=== PATIENT | male | born 1970 | race African-American/Black ===

== ENCOUNTER 2018-03-20 19:10 | Emergency (ER) | payer SELFPAY ==
[~2018-03-20] VITALS: Ht 182.9 cm; Wt 107.0 kg
[2018-03-20] MEDS ORDERED: IV NORMAL SALINE 1000ML BAG 1,000 ML IV ONE (19:30)
[2018-03-20 19:37] LABS: BASO % 1 % (0-3); EOS # 0.1 x10^3/uL (0.0-0.7); EOS % 2 % (0-3); HEMATOCRIT 39.9 % (39.0-53.0); HEMOGLOBIN 13.9 g/dL (13.0-17.5); LYMPH # 1.8 x10^3/uL (1.0-4.8); LYMPH % 40 % (24-48); MEAN CORPUSCULAR HEMOGLOBIN 29 pg (25-35); MEAN CORPUSCULAR HGB CONC 35 g/dL (31-37); MEAN CORPUSCULAR VOLUME 84 fL (79-100); MONO # 0.4 x10^3/uL (0.0-1.1); MONO % 8 % (0-9); NEUT # 2.3 x10^3uL (1.8-7.7); NEUT % 50 % (31-73); PLATELET COUNT 145 x10^3/uL (140-400); RED BLOOD COUNT 4.76 x10^6/uL (4.30-5.70); WHITE BLOOD COUNT 4.6 x10^3/uL (4.0-11.0)
[2018-03-20 19:47] LABS: CALCIUM 9.1 mg/dL (8.5-10.1); GFR 79.8; POTASSIUM 3.7 mmol/L (3.5-5.1)
[2018-03-20 19:53] LABS: ALBUMIN 3.7 g/dL (3.4-5.0); ALBUMIN/GLOBULIN RATIO 0.9 (1.0-1.7); TOTAL BILIRUBIN 0.3 mg/dL (0.2-1.0); TOTAL PROTEIN 7.6 g/dL (6.4-8.2)
[2018-03-20] MEDS ORDERED: IOHEXOL 300 MG/ML 100ML VIAL. IV ONE (20:00)
[2018-03-20] MEDS ORDERED: CONTRAST GIVEN. MC PRN (20:00)
--- NOTE | 2018-03-20 20:57 | RAD ---
CTA OF THE CHEST WITH AND WITHOUT CONTRAST Clinical indications: Shortness of air. No clot in leg. Technique: Noncontrast axial localizer was performed. After IV infusion of 75 cc of Omnipaque 300, helical CT scanning of the chest was performed using the CT pulmonary embolism protocol. A coronal MIP reconstruction was generated. PQRS compliance Statement One or more of the following individualized dose reduction techniques were utilized for this study: 1. Automated exposure control 2. Adjustment of the mA and/or kV according to patient size 3. Use of iterative reconstruction technique Comparison: No previous chest CT available. FINDINGS: No pulmonary embolism is evident. Calcified left hilar lymph nodes are seen. Calcified granuloma of the left lower lobe is seen. No focal aneurysmal dilatation or dissection of thoracic aorta is seen. The heart size is normal and no pericardial effusion is evident. No pleural effusion or pneumothorax is seen. No lung consolidation or lung mass is evident. Small focus of atelectasis or scarring within the posterior right lower lobe is seen. There is a small focus of scarring or atelectasis within the posterior costophrenic angle on the left side. The proximal bronchial tree is patent. No adrenal mass is evident. IVC filter is in place. No osteolytic process is seen. IMPRESSION: No pulmonary embolism. IVC filter in place. No lung consolidation or pleural effusion is seen. Electronically signed by: Daryl Daly MD (03/20/2018 8:53 PM) [facility] [id number]
--- NOTE | 2018-03-20 21:14 | PHYS DOC ---
Past Medical History Past Medical History: DVT, Hypertension Past Surgical History: No Surgical History Alcohol Use: Heavy Drug Use: None Adult General Chief Complaint Chief Complaint: DIZZY/LIGHT HEADED HPI HPI Patient is a 48 year old male who presents with cold symptoms and reported shortness of breath. The patient states that he was seen at recently and told that he had a DVT in his left leg. He is worried that he might have a blood clot in his lungs. He states that he has been having some congestion and upper respiratory symptoms. He states that he felt like he was having some shortness of air and stopped his truck. He is a overhauler bus truck. He reported to the emergency department to be examined. He denies chest pain or diaphoresis. Review of Systems Review of Systems Constitutional: Denies fever or chills [] Eyes: Denies change in visual acuity, redness, or eye pain [] HENT: Denies nasal congestion or sore throat [] Respiratory: See history of present illness Cardiovascular: No additional information not addressed in HPI [] GI: Denies abdominal pain, nausea, vomiting, bloody stools or diarrhea [] : Denies dysuria or hematuria [] Musculoskeletal: Denies back pain or joint pain [] Integument: Denies rash or skin lesions [] Neurologic: Denies headache, focal weakness or sensory changes [] Endocrine: Denies polyuria or polydipsia [] All other systems were reviewed and found to be within normal limits, except as documented in this note. Current Medications Current Medications Current Medications Medications (Trade) Dose Ordered Sig/Cameron Start Time Stop Time Status Last Admin Dose Admin Info (CONTRAST GIVEN -- Rx MONITORING) 1 each PRN DAILY PRN 03/20/18 20:00 03/20/18 22:02 DC Iohexol (Omnipaque 300 Mg/ml) 100 ml STK-MED ONCE 03/21/18 03:46 03/21/18 03:47 DC Sodium Chloride 1,000 ml @ 1,000 mls/hr 1X ONCE 03/20/18 19:30 03/20/18 20:29 DC 03/20/18 19:55 1,000 MLS/HR Allergies Allergies Allergies Coded Allergies Type Severity Reaction Last Updated Verified No Known Drug Allergies 03/20/18 No Physical Exam Physical Exam Constitutional: Well developed, well nourished, no acute distress, non-toxic appearance. [] HENT: Normocephalic, atraumatic, bilateral and panic membranes normal, oropharynx moist, no oral exudates, nares are erythematous bilaterally Eyes: PERRLA, EOMI, conjunctiva normal, no discharge. [] Neck: Normal range of motion, no tenderness, supple, no stridor. [] Cardiovascular:Heart rate regular rhythm, no murmur [] Lungs & Thorax: Bilateral breath sounds clear to auscultation [] Extremities: No tenderness, no cyanosis, no clubbing, ROM intact, no edema. [] Neurologic: Alert and oriented X 3, normal motor function, normal sensory function, no focal deficits noted. [] Psychologic: Affect normal, judgement normal, mood normal. [] Current Patient Data Vital Signs Vital Signs Date Time Temp Pulse Resp B/P (MAP) Pulse Ox O2 Delivery O2 Flow Rate FiO2 03/20/18 21:45 78 18 99 03/20/18 19:10 98.9 157/78 (104) Room Air 98.9 Lab Values Laboratory Tests Test 03/20/18 19:28 White Blood Count 4.6 x10^3/uL (4.0-11.0) Red Blood Count 4.76 x10^6/uL (4.30-5.70) Hemoglobin 13.9 g/dL (13.0-17.5) Hematocrit 39.9 % (39.0-53.0) Mean Corpuscular Volume 84 fL (79-100) Mean Corpuscular Hemoglobin 29 pg (25-35) Mean Corpuscular Hemoglobin Concent 35 g/dL (31-37) Red Cell Distribution Width 14.0 % (11.5-14.5) Platelet Count 145 x10^3/uL (140-400) Neutrophils (%) (Auto) 50 % (31-73) Lymphocytes (%) (Auto) 40 % (24-48) Monocytes (%) (Auto) 8 % (0-9) Eosinophils (%) (Auto) 2 % (0-3) Basophils (%) (Auto) 1 % (0-3) Neutrophils # (Auto) 2.3 x10^3uL (1.8-7.7) Lymphocytes # (Auto) 1.8 x10^3/uL (1.0-4.8) Monocytes # (Auto) 0.4 x10^3/uL (0.0-1.1) Eosinophils # (Auto) 0.1 x10^3/uL (0.0-0.7) Basophils # (Auto) 0.0 x10^3/uL (0.0-0.2) Sodium Level 140 mmol/L (136-145) Potassium Level 3.7 mmol/L (3.5-5.1) Chloride Level 103 mmol/L (98-107) Carbon Dioxide Level 26 mmol/L (21-32) Anion Gap 11 (6-14) Blood Urea Nitrogen 18 mg/dL (8-26) Creatinine 1.0 mg/dL (0.7-1.3) Estimated GFR (Cockcroft-Gault) 79.8 BUN/Creatinine Ratio 18 (6-20) Glucose Level 108 mg/dL (70-99) H Calcium Level 9.1 mg/dL (8.5-10.1) Total Bilirubin 0.3 mg/dL (0.2-1.0) Aspartate Amino Transferase (AST) 25 U/L (15-37) Alanine Aminotransferase (ALT) 59 U/L (16-63) Alkaline Phosphatase 69 U/L (46-116) Troponin I Quantitative < 0.017 ng/mL (0.000-0.055) Total Protein 7.6 g/dL (6.4-8.2) Albumin 3.7 g/dL (3.4-5.0) Albumin/Globulin Ratio 0.9 (1.0-1.7) L Laboratory Tests 03/20/18 19:28 Laboratory Tests 03/20/18 19:28 EKG EKG [] Radiology/Procedures Radiology/Procedures []PATIENT: JARED YEECOUNT: [id number]#: [id number] : 1970 LOCATION: ER AGE: 48 SEX: M EXAM STATUS: REG ER ORD. PHYSICIAN: DANIA JONES APRN REASON: SOA, known blood clot in left lower extremity PROCEDURE: CT ANGIOGRAPHY CHEST CTA OF THE CHEST WITH AND WITHOUT CONTRAST Clinical indications: Shortness of air. No clot in leg. Technique: Noncontrast axial localizer was performed. After IV infusion of 75 cc of Omnipaque 300, helical CT scanning of the chest was performed using the CT pulmonary embolism protocol. A coronal MIP reconstruction was generated. PQRS compliance Statement One or more of the following individualized dose reduction techniques were utilized for this study: 1. Automated exposure control 2. Adjustment of the mA and/or kV according to patient size 3. Use of iterative reconstruction technique Comparison: No previous chest CT available. FINDINGS: No pulmonary embolism is evident. Calcified left hilar lymph nodes are seen. Calcified granuloma of the left lower lobe is seen. No focal aneurysmal dilatation or dissection of thoracic aorta is seen. The heart size is normal and no pericardial effusion is evident. No pleural effusion or pneumothorax is seen. No lung consolidation or lung mass is evident. Small focus of atelectasis or scarring within the posterior right lower lobe is seen. There is a small focus of scarring or atelectasis within the posterior costophrenic angle on the left side. The proximal bronchial tree is patent. No adrenal mass is evident. IVC filter is in place. No osteolytic process is seen. IMPRESSION: No pulmonary embolism. IVC filter in place. No lung consolidation or pleural effusion is seen. Electronically signed by: Juventino Daly MD (03/20/2018 8:53 PM) [facility] DICTATED and SIGNED BY: JUVENTINO DALY MD DATE: 03/20/182035 Course & Med Decision Making Course & Med Decision Making Pertinent Labs and Imaging studies reviewed. (See chart for details) []The patient is to continue to take his warfarin for his blood clot. He is to follow-up with his physician at for continued treatment of his DVT. He may use [id number] cough and cold medication for his upper respiratory symptoms. Staff Physician Addendum: I was working in the ER during the course of this patient's visit. I was available for consultation as needed, but I was not directly involved in the care of this patient. Dragon Disclaimer Dragon Disclaimer This electronic medical record was generated, in whole or in part, using a voice recognition dictation system. Departure Departure Impression: Primary Impression: Upper respiratory infection Disposition: 01 HOME, SELF-CARE Condition: STABLE Referrals: NO PCP (PCP) Patient Instructions: Upper Respiratory Infection, Adult Additional Instructions: Use [id number] cough and cold medication. You were negative for a pulmonary embolism. Continue your follow-up care with for treatment of your DVT. If worsening return to the emergency department. DANIA JONES APRN Mar 20, 2018 21:14 ROSANNE GONZALEZ MD Mar 26, 2018 06:26
[2018-03-20 21:45] VITALS: BP 155/97
[2018-03-21] MEDS ORDERED: IOHEXOL 300 MG/ML 100ML VIAL. ONE (03:46)
== END 2018-03-20 22:00 | disposition home or self-care (01) ==
LOC: ER 19:10
DX: J06.9 Acute upper respiratory infection, unspecified (principal); I10 Essential (primary) hypertension; F10.20 Alcohol dependence, uncomplicated; Y90.9 Presence of alcohol in blood, level not specified; Z86.718 Personal history of other venous thrombosis and embolism
CPT/HCPCS: 36415; 71275; 80053; 84484; 85025; 99285; J7030; Q9967; 96360

== ENCOUNTER 2018-07-08 17:48 | Emergency (ER) | payer OTHER ==
[~2018-07-08] VITALS: Ht 182.9 cm; Wt 108.0 kg
[2018-07-08 19:06] LABS: BILIRUBIN,URINE NEGATIVE (NEG); CLARITY,URINE CLEAR; COLOR,URINE YELLOW; NITRITE,URINE NEGATIVE (NEG); PH,URINE 5.5; PROTEIN,URINE NEGATIVE (NEG-TRACE); UROBILINOGEN,URINE 0.2 mg/dL (0.2 mg/dL)
[2018-07-08 19:09] LABS: BASO % 1 % (0-3); EOS # 0.1 x10^3/uL (0.0-0.7); EOS % 1 % (0-3); HEMATOCRIT 39.4 % (39.0-53.0); HEMOGLOBIN 13.1 g/dL (13.0-17.5); LYMPH # 1.6 x10^3/uL (1.0-4.8); LYMPH % 29 % (24-48); MEAN CORPUSCULAR HEMOGLOBIN 28 pg (25-35); MEAN CORPUSCULAR HGB CONC 33 g/dL (31-37); MEAN CORPUSCULAR VOLUME 85 fL (79-100); MONO # 0.5 x10^3/uL (0.0-1.1); MONO % 9 % (0-9); NEUT # 3.3 x10^3uL (1.8-7.7); NEUT % 59 % (31-73); PLATELET COUNT 148 x10^3/uL (140-400); RED BLOOD COUNT 4.66 x10^6/uL (4.30-5.70); RED CELL DISTRIBUTION WIDTH 13.9 % (11.5-14.5); WHITE BLOOD COUNT 5.5 x10^3/uL (4.0-11.0)
[2018-07-08 19:11] LABS: BACTERIA,URINE 0 /HPF (0-FEW); WBC,URINE OCC /HPF (0-4)
[2018-07-08 19:12] LABS: SQUAMOUS EPITHELIAL CELL,UR OCC /LPF
[2018-07-08 19:17] LABS: PROTHROMBIN TIME PATIENT 14.8 SEC (11.7-14.0)
--- NOTE | 2018-07-08 20:28 | RAD ---
Left lower extremity venous doppler ultrasound History: Swelling and pain of the left buttock Comparison: None Findings: Multiple grayscale, color, and duplex spectral analysis sonographic images were acquired of the left lower extremity veins to evaluate for the presence of DVT. There is diffuse abnormal echogenicity extending from the proximal superficial femoral vein to the level of the popliteal vein, calf veins also not visualized. There is some color flow present. There is color flow of the left common femoral vein and greater saphenous vein. There are some nonspecific left groin lymph nodes which reportedly correspond with site of patient's pain, largest of these about 2.9 x 1.1 x 2.2 cm. Impression: 1. There is long segment nonocclusive deep venous thrombosis throughout the superficial femoral vein to the popliteal vein. Calf veins are also not well visualized. 2. There are nonspecific left groin lymph nodes, reportedly corresponding with site of pain. Nonvascular left extremity ultrasound FINDINGS: Multiple sonographic images directed toward the left buttock region are submitted. At site of concern, there is a hypoechoic, somewhat lobulated collection in greatest dimension about 3.3 x 3.2 x 1.4 cm in size, indicated as being at the inferior medial aspect of the left buttock. This is not associated with significant hypervascularity. IMPRESSION: 1. There is a nonspecific fluid collection of the inferior medial left buttock at site of concern of uncertain sterility, abscess in the differential considerations. FOR INTERNAL CODING PURPOSES Critical result: Findings discussed with RORO GEORGE at 07/08/2018 8:25 PM. RESULT CODE: (C) Electronically signed by: Naresh Burroughs MD (07/08/2018 8:26 PM) [facility]
[2018-07-08] MEDS ORDERED: LIDOCAINE 2%/EPI 1:100,000 20 ML VIAL. IJ ONE (20:45)
[2018-07-08] MEDS ORDERED: CLINDAMYCIN HCL 150 MG CAPSULE. PO ONE (20:45)
[2018-07-08 21:23] VITALS: BP 143/68
[2018-07-08] MEDS ORDERED: CLIN300C8 PO (23:06)
[2018-07-08] MEDS ORDERED: HYDR-2761 PO (23:10)
--- NOTE | 2018-07-08 23:10 | PHYS DOC ---
Past Medical History Past Medical History: DVT, Hypertension, Other Additional Past Medical Histor: CHRONIC BACK PAIN,UMBILICAL HERNIA Past Surgical History: Other Additional Past Surgical Histo: L KNEE Additional Information: 3 CIGARETTES A DAY Alcohol Use: Heavy Additional Information: 9 BEERS A DAY Drug Use: None Adult General Chief Complaint Chief Complaint: TESTICULAR PAIN OR INJURY HPI HPI 48 y/o male presents with report of left groin pain and tender/swollen area x 4 days. Reports focal tender focal area to left buttocks which was previously diagnosed as an abscess. Reports took antibiotics which improved area but now worse again. Denies fever. Denies trauma. Patient also reports some chronic edema to LLE and history of known DVT for which patent has been taking xarelto. Reports compliance with his blood thinner. Denies chest pain or SOA. Denies pleuritic pain. Denies penile discharge or rash. Denies dysuria, urinary frequency, or urinary urgency. Denies testicular involvement. Review of Systems Review of Systems Constitutional: Denies fever or chills [] Eyes: Denies change in visual acuity, redness, or eye pain [] HENT: Denies nasal congestion or sore throat [] Respiratory: Denies cough or shortness of breath [] Cardiovascular: Denies chest pain or pleuritic pain GI: Denies abdominal pain, nausea, vomiting, or diarrhea [] : Denies dysuria or hematuria [] Musculoskeletal: Denies back pain; reports chronic leg pain and swelling on left Integument: Reports healing ulceration to distal aspect of LLE, reports tender swollen area to left buttocks, reports swollen are to left femoral area Neurologic: Denies headache, focal weakness or sensory changes [] Complete systems were reviewed and found to be within normal limits, except as documented in this note. Current Medications Current Medications Current Medications Medications (Trade) Dose Ordered Sig/Cameron Start Time Stop Time Status Last Admin Dose Admin Clindamycin HCl (Cleocin) 300 mg 1X ONCE 07/08/18 20:45 07/08/18 20:46 DC 07/08/18 20:53 300 MG Lidocaine/ Epinephrine (LIDOCAINE 2%-EPI 1:100,000 multi-dose) 20 ml 1X ONCE 07/08/18 20:45 07/08/18 20:46 DC 07/08/18 20:53 20 ML Neomycin/ Polymyxin/ Bacitracin (Triple Antibiotic Ointment) 1 pkt 1X ONCE 07/08/18 23:15 07/08/18 23:16 DC Allergies Allergies Allergies Coded Allergies Type Severity Reaction Last Updated Verified No Known Drug Allergies 03/20/18 No Physical Exam Physical Exam Constitutional: Well developed, well nourished, no acute distress, non-toxic appearance. [] HENT: Normocephalic, atraumatic Eyes: PERRL, EOMI, conjunctiva normal, no discharge. [] Neck: Normal range of motion, no tenderness, supple Cardiovascular: Heart rate regular rhythm, no murmur [] Lungs & Thorax: Bilateral breath sounds clear to auscultation [] Abdomen: Bowel sounds normal, soft, no tenderness, no masses, no pulsatile masses. [] Skin: Warm, dry, healing ulceration to medial distal LLE, focal tender area to left distal buttocks with induration, focal tender area to left femoral region possible lymphadenopathy Back: No tenderness, no CVA tenderness. [] Extremities: LLE 1+ edema, distal medial aspect with healing decubitus ulceration, some calf tenderness on palpation primarily near ulceration Neurologic: Alert and oriented X 3, normal motor function, normal sensory function, no focal deficits noted. [] Psychologic: Affect normal, judgement normal, mood normal. [] Current Patient Data Vital Signs Vital Signs Date Time Temp Pulse Resp B/P (MAP) Pulse Ox O2 Delivery O2 Flow Rate FiO2 07/08/18 21:23 77 143/68 (93) Room Air 07/08/18 18:18 98.2 20 98 98.2 Lab Values Laboratory Tests Test 07/08/18 18:45 07/08/18 18:53 Urine Collection Type Unknown Urine Color Yellow Urine Clarity Clear Urine pH 5.5 Urine Specific Bernice 1.020 Urine Protein Negative mg/dL (NEG-TRACE) Urine Glucose (UA) Negative mg/dL (NEG) Urine Ketones (Stick) Negative mg/dL (NEG) Urine Blood Large (NEG) Urine Nitrite Negative (NEG) Urine Bilirubin Negative (NEG) Urine Urobilinogen Dipstick 0.2 mg/dL (0.2 mg/dL) Urine Leukocyte Esterase Negative (NEG) Urine RBC 3-5 /HPF (0-2) Urine WBC Occ /HPF (0-4) Urine Squamous Epithelial Cells Occ /LPF Urine Bacteria 0 /HPF (0-FEW) Urine Mucus Slight /LPF White Blood Count 5.5 x10^3/uL (4.0-11.0) Red Blood Count 4.66 x10^6/uL (4.30-5.70) Hemoglobin 13.1 g/dL (13.0-17.5) Hematocrit 39.4 % (39.0-53.0) Mean Corpuscular Volume 85 fL (79-100) Mean Corpuscular Hemoglobin 28 pg (25-35) Mean Corpuscular Hemoglobin Concent 33 g/dL (31-37) Red Cell Distribution Width 13.9 % (11.5-14.5) Platelet Count 148 x10^3/uL (140-400) Neutrophils (%) (Auto) 59 % (31-73) Lymphocytes (%) (Auto) 29 % (24-48) Monocytes (%) (Auto) 9 % (0-9) Eosinophils (%) (Auto) 1 % (0-3) Basophils (%) (Auto) 1 % (0-3) Neutrophils # (Auto) 3.3 x10^3uL (1.8-7.7) Lymphocytes # (Auto) 1.6 x10^3/uL (1.0-4.8) Monocytes # (Auto) 0.5 x10^3/uL (0.0-1.1) Eosinophils # (Auto) 0.1 x10^3/uL (0.0-0.7) Basophils # (Auto) 0.0 x10^3/uL (0.0-0.2) Prothrombin Time 14.8 SEC (11.7-14.0) H Prothrombin Time INR 1.2 (0.8-1.1) H PTT 31 SEC (24-38) Laboratory Tests 07/08/18 18:53 EKG EKG [] Radiology/Procedures Radiology/Procedures PROCEDURE: VENOUS LOWER EXTREMITY LEFT Left lower extremity venous doppler ultrasound History: Swelling and pain of the left buttock Comparison: None Findings: Multiple grayscale, color, and duplex spectral analysis sonographic images were acquired of the left lower extremity veins to evaluate for the presence of DVT. There is diffuse abnormal echogenicity extending from the proximal superficial femoral vein to the level of the popliteal vein, calf veins also not visualized. There is some color flow present. There is color flow of the left common femoral vein and greater saphenous vein. There are some nonspecific left groin lymph nodes which reportedly correspond with site of patient's pain, largest of these about 2.9 x 1.1 x 2.2 cm. Impression: 1. There is long segment nonocclusive deep venous thrombosis throughout the superficial femoral vein to the popliteal vein. Calf veins are also not well visualized. 2. There are nonspecific left groin lymph nodes, reportedly corresponding with site of pain. Nonvascular left extremity ultrasound FINDINGS: Multiple sonographic images directed toward the left buttock region are submitted. At site of concern, there is a hypoechoic, somewhat lobulated collection in greatest dimension about 3.3 x 3.2 x 1.4 cm in size, indicated as being at the inferior medial aspect of the left buttock. This is not associated with significant hypervascularity. IMPRESSION: 1. There is a nonspecific fluid collection of the inferior medial left buttock at site of concern of uncertain sterility, abscess in the differential considerations. FOR INTERNAL CODING PURPOSES Critical result: Findings discussed with RORO GEORGE at 07/08/2018 8:25 PM. RESULT CODE: (C) Course & Med Decision Making Course & Med Decision Making Pertinent Labs and Imaging studies reviewed. (See chart for details) Patient with known left LE DVT for which patient has been compliant with his blood thinner presents with prior dx of abscess which is now worse and left femoral groin pain. Denies chest pain, pleuritic pain, or SOA. Labs obtained and posted to chart. Venous doppler and nonvascular US obtained. Chronic DVT noted which is nonocclusive. Area or likely abscess noted. I&D performed with packing placed. Empiric antibiotics given. Given prior LLE ultrasound out of system and concern with continued signs of DVT, patient offered admission. Patient declined and will follow closely with PCP. Should be able to get outside facility's records for comparison. Patient reports he feels improved since arrival. Patient stable for discharge home with outpatient follow-up with PCP. Discussed findings and plan with patient, who acknowledges understanding and agreement. Dragon Disclaimer Dragon Disclaimer This electronic medical record was generated, in whole or in part, using a voice recognition dictation system. Incision and Drainage Incision and Drainage : Site: left buttocks Blade Size: 11 I & D Procedure: sterile drapes applied, gauze wick placed (1/2" Iodoform gauze) Progress Verbal consent obtained. Time out performed. Wound cleaned with ChloraPrep. Anesthesia obtained with 2% lidocaine with epi x 5mls. 11 blade incised indurated area with approximately 2cm site. Drainage of serosanguineous fluid noted. Copious irrigation with 250mls of NS performed. Iodoform packing placed. and dressing placed. Patient tolerated procedure well and without difficulty. Departure Departure Impression: Primary Impression: Chronic deep vein thrombosis (DVT) Additional Impressions: Abscess of buttock Ulcer Disposition: HOME, SELF-CARE Condition: STABLE Referrals: NO PCP (PCP) Patient Instructions: Abscess, [id number], Deep Vein Thrombosis, Pressure Ulcer Scripts Hydrocodone Bit/Acetaminophen (HYDROCODONE-APAP 5-325 ) 1 Tab Tablet 1 TAB PO PRN Q6HRS PRN for PAIN, #10 TAB 0 Refills Prov: RORO GEORGE DO 07/08/18 Clindamycin Hcl (CLINDAMYCIN HCL) 300 Mg Capsule 1 CAP PO TID for Infection for 14 Days, #42 CAP Prov: RORO GEORGE DO 07/08/18 Problem Qualifiers Primary Impression: Chronic deep vein thrombosis (DVT) DVT location: lower extremity Affected thrombotic vein of extremity: unspecified vein of extremity Laterality: left Qualified Codes: I82.502 - Chronic embolism and thrombosis of unspecified deep veins of left lower extremity RORO GEORGE DO Jul 08, 2018 23:10
[2018-07-08] MEDS ORDERED: NEOMY/BACITR/POLYMYXIN OINT PACKET. TP ONE (23:15)
== END 2018-07-08 23:20 | disposition home or self-care (01) ==
LOC: ER 17:48
DX: I82.502 Chronic embolism and thrombosis of unspecified deep veins of left lower extremity (principal); L02.31 Cutaneous abscess of buttock; L89.890 Pressure ulcer of other site, unstageable; I10 Essential (primary) hypertension; G89.29 Other chronic pain; F17.210 Nicotine dependence, cigarettes, uncomplicated; F10.20 Alcohol dependence, uncomplicated; Y90.9 Presence of alcohol in blood, level not specified
CPT/HCPCS: 10060; 36415; 76882; 81001; 85025; 85610; 85730; 93971; 99284; J3490

== ENCOUNTER 2018-08-13 13:50 | Emergency (ER) | payer OTHER ==
[~2018-08-13] VITALS: Ht 182.9 cm; Wt 108.0 kg
[~2018-08-13 13:50] MED LIST: CLIN300C8 PO; HYDR-2761 PO
[2018-08-13 14:06] VITALS: BP 129/79
[2018-08-13] MEDS ORDERED: PENICILLIN G BENZATHINE LA 2,400,000 UNIT/4 ML DISP.SYRIN. IM ONE (14:15)
[2018-08-13] MEDS ORDERED: DOXY100T PO (14:27)
--- NOTE | 2018-08-13 14:27 | PHYS DOC ---
Past Medical History Past Medical History: DVT, Hypertension, Other Additional Past Medical Histor: CHRONIC BACK PAIN,UMBILICAL HERNIA Past Surgical History: Other Additional Past Surgical Histo: L KNEE Alcohol Use: Heavy Drug Use: None Adult General Chief Complaint Chief Complaint: OTHER COMPLAINTS HPI HPI Patient is a 48 year old male who presents with a painless lesion on his penis. This is been present for the past 5 days or so. Patient is sexually active with multiple partners. No dysuria. No other lesions noted. No trauma. Nothing seems to make it better or worse.[] Review of Systems Review of Systems Constitutional: Denies fever or chills [] Eyes: Denies change in visual acuity, redness, or eye pain [] HENT: Denies nasal congestion or sore throat [] Respiratory: Denies cough or shortness of breath [] Cardiovascular: No chest pain or palpitations[] GI: Denies abdominal pain, nausea, vomiting, bloody stools or diarrhea [] : Denies dysuria or hematuria [] Musculoskeletal: Denies back pain or joint pain [] Integument: See history of present illness[] Neurologic: Denies headache, focal weakness or sensory changes [] Endocrine: Denies polyuria or polydipsia [] All other systems were reviewed and found to be within normal limits, except as documented in this note. Allergies Allergies Allergies Coded Allergies Type Severity Reaction Last Updated Verified No Known Drug Allergies 03/20/18 No Physical Exam Physical Exam Constitutional: Well developed, well nourished, no acute distress, non-toxic appearance. [] HENT: Normocephalic, atraumatic, bilateral external ears normal, oropharynx moist, no oral exudates, nose normal. [] Eyes: PERRLA, EOMI, conjunctiva normal, no discharge. [] Neck: Normal range of motion, no tenderness, supple, no stridor. [] Cardiovascular:Heart rate regular rhythm, no murmur [] Lungs & Thorax: Bilateral breath sounds clear to auscultation [] Abdomen: Bowel sounds normal, soft, no tenderness, no masses, no pulsatile masses. exam: There is a 1.5 cm by a 7 mm longest along the shaft of the penis lesion on the right side. There is no drainage from this area. There is no discharge from the urethra. Patient is circumcised, bilateral descended testes without tenderness.[] Skin: Warm, dry, no erythema, no rash. [] Back: No tenderness, no CVA tenderness. [] Extremities: No tenderness, no cyanosis, no clubbing, ROM intact, no edema. [] Neurologic: Alert and oriented X 3, normal motor function, normal sensory function, no focal deficits noted. [] Psychologic: Affect normal, judgement normal, mood normal. [] Current Patient Data Vital Signs Vital Signs Date Time Temp Pulse Resp B/P (MAP) Pulse Ox O2 Delivery O2 Flow Rate FiO2 08/13/18 14:06 98.3 82 16 129/79 (96) 98 Room Air 98.3 EKG EKG [] Radiology/Procedures Radiology/Procedures [] Course & Med Decision Making Course & Med Decision Making Pertinent Labs and Imaging studies reviewed. (See chart for details) Medical decision making: Given that this is a painless lesion, concerned about syphilis. Do not believe it is chancroid. We will cover patient for this with antibiotics in the emergency department. Also we'll cover her with doxycycline pending results of GC and chlamydia testing. Discussed plan with patient who voices understanding. All questions are answered. Patient was discharged in improved condition.[] Dragon Disclaimer Dragon Disclaimer This electronic medical record was generated, in whole or in part, using a voice recognition dictation system. Departure Departure Impression: Primary Impression: Rash of penis Disposition: 01 HOME, SELF-CARE Condition: IMPROVED Referrals: NO PCP (PCP) Patient Instructions: Rash, Syphilis Detection Test Additional Instructions: Follow-up with your regular doctor in 2 days. If you do not have a regular doctor list of local clinics will be provided for you. No sexual intercourse until cleared by your primary care physician or you receive negative test results. Return to the ER if worsening pain, pain when you urinate, or any other concerns. Scripts Doxycycline Hyclate (DOXYCYCLINE HYCLATE) 100 Mg Tablet 100 MG PO BID, #20 TAB Prov: ALYSA BOONE DO 08/13/18 ALYSA BOONE DO Aug 13, 2018 14:27
== END 2018-08-13 15:11 | disposition home or self-care (01) ==
LOC: ER 13:50
DX: R21 Rash and other nonspecific skin eruption (principal); I10 Essential (primary) hypertension; G89.29 Other chronic pain; F10.20 Alcohol dependence, uncomplicated; Y90.9 Presence of alcohol in blood, level not specified; Z86.718 Personal history of other venous thrombosis and embolism
CPT/HCPCS: 36415; 86592; 87491; 87591; 96372; 99283; J0561

== ENCOUNTER 2018-10-25 14:20 | Inpatient (IN) | payer OTHER ==
[~2018-10-25] VITALS: Ht 182.9 cm; Wt 108.9 kg
[~2018-10-25 14:20] MED LIST changes: +DOXY100T PO
--- NOTE | 2018-10-25 15:12 | EKG ---
[facility] [address] [place] [address] Test Date: 2018-10-25 Test Time: 14:59:24 Pat Name: KEYLA YEE Department: Room: Gender: M [employer]: : 1970 Requested By: BRIAN MENDOZA Order Number: [id number] Reading MD: Measurements Intervals [place] Rate: 82 P: 28 HI: 196 QRS: -25 QRSD: 82 T: 22 QT: 350 QTc: 412 Interpretive Statements SINUS RHYTHM LEFTWARD AXIS INCOMPLETE RIGHT BUNDLE BRANCH BLOCK OTHERWISE NORMAL ECG RI6.01 Unconfirmed report No previous ECG available for comparison
[2018-10-25 15:17] LABS: BASO % 1 % (0-3); EOS # 0.1 x10^3/uL (0.0-0.7); EOS % 2 % (0-3); HEMATOCRIT 39.8 % (39.0-53.0); HEMOGLOBIN 13.2 g/dL (13.0-17.5); LYMPH # 1.7 x10^3/uL (1.0-4.8); LYMPH % 39 % (24-48); MEAN CORPUSCULAR HEMOGLOBIN 28 pg (25-35); MEAN CORPUSCULAR HGB CONC 33 g/dL (31-37); MEAN CORPUSCULAR VOLUME 86 fL (79-100); MONO # 0.4 x10^3/uL (0.0-1.1); MONO % 9 % (0-9); NEUT # 2.1 x10^3uL (1.8-7.7); NEUT % 50 % (31-73); PLATELET COUNT 144 x10^3/uL (140-400); RED BLOOD COUNT 4.65 x10^6/uL (4.30-5.70); RED CELL DISTRIBUTION WIDTH 14.5 % (11.5-14.5); WHITE BLOOD COUNT 4.3 x10^3/uL (4.0-11.0)
[2018-10-25 15:27] LABS: PROTHROMBIN TIME PATIENT 14.6 SEC (11.7-14.0)
--- NOTE | 2018-10-25 15:34 | RAD ---
PORTABLE CHEST 1V HISTORY: Shortness of air No prior study for comparison FINDINGS: Heart size mildly prominent but that is likely due to the portable technique and low lung volumes. No evidence of pneumothorax. No pleural effusion. No consolidating infiltrate. IMPRESSION: No evidence of acute infiltrate. Electronically signed by: Fish Smith MD (10/25/2018 3:30 PM) [facility]
[2018-10-25 15:38] LABS: CALCIUM 8.6 mg/dL (8.5-10.1); GFR 96.5; POTASSIUM 3.8 mmol/L (3.5-5.1)
[2018-10-25 15:49] LABS: ALBUMIN 3.4 g/dL (3.4-5.0); ALBUMIN/GLOBULIN RATIO 0.9 (1.0-1.7); MAGNESIUM 1.7 mg/dL (1.8-2.4); TOTAL BILIRUBIN 0.4 mg/dL (0.2-1.0)
[2018-10-25] MEDS ORDERED: KETOROLAC 30 MG/ML VIAL. IV ONE (16:15)
--- NOTE | 2018-10-25 17:16 | PHYS DOC ---
Past Medical History Past Medical History: DVT, Hypertension, Other Additional Past Medical Histor: CHRONIC BACK PAIN,UMBILICAL HERNIA (BRIAN MENDOZA DO) Past Surgical History: Other Additional Past Surgical Histo: L KNEE (BRIAN MENDOZA DO) Alcohol Use: Heavy Drug Use: None (BRIAN MENDOZA DO) Adult General Chief Complaint Chief Complaint: SHORTNESS OF BREATH HPI HPI Patient is a 48 year old male presented to ER today for evaluation of episodic episodes of dyspnea, he felt like he could not get his breath for few seconds. Patient denies any chest pain. Patient has history DVT for the last 14 years, he was on Coumadin for about 10 years, lately his doctor put him on xarelto. Patient is on 20 mg daily. Patient said he was seen at [facility] last week for the same problem, had ultrasound of his legs, it was negative for D VT. Patient had no history of coronary artery disease, no history hypertension, no history of diabetic. Patient denies any family history heart problem. HE denies any recent travel or operation. (BRIAN MENDOZA DO) Review of Systems Review of Systems Constitutional: Denies fever or chills [] Eyes: Denies change in visual acuity, redness, or eye pain [] HENT: Denies nasal congestion or sore throat [] Respiratory: Denies cough , Positive for shortness of breath [] Cardiovascular: No additional information not addressed in HPI [] GI: Denies abdominal pain, nausea, vomiting, bloody stools or diarrhea [] : Denies dysuria or hematuria [] Musculoskeletal: Denies back pain or joint pain [] Integument: Denies rash or skin lesions [] Neurologic: Denies headache, focal weakness or sensory changes [] Endocrine: Denies polyuria or polydipsia [] All other systems were reviewed and found to be within normal limits, except as documented in this note. (BRIAN MENDOZA DO) Current Medications Current Medications Current Medications Medications (Trade) Dose Ordered Sig/Cameron Start Time Stop Time Status Last Admin Dose Admin Enoxaparin Sodium (Lovenox 120mg Syringe) 110 mg 1X ONCE 10/25/18 19:15 10/25/18 19:16 10/25/18 18:46 110 MG Info (CONTRAST GIVEN -- Rx MONITORING) 1 each PRN DAILY PRN 10/25/18 17:45 10/27/18 17:44 Iohexol (Omnipaque 350 Mg/ml) 100 ml 1X ONCE 10/25/18 18:15 10/25/18 18:16 DC 10/25/18 18:10 100 ML Ketorolac Tromethamine (Toradol 30mg Vial) 30 mg 1X ONCE 10/25/18 16:15 10/25/18 16:16 DC 10/25/18 16:24 30 MG (DANIEL HURT Jr. DO) Allergies Allergies Allergies Coded Allergies Type Severity Reaction Last Updated Verified No Known Drug Allergies 03/20/18 No (DANIEL HURT Jr. DO) Physical Exam Physical Exam Constitutional: Well developed, well nourished, no acute distress, non-toxic appearance. [] HENT: Normocephalic, atraumatic, bilateral external ears normal, oropharynx moist, no oral exudates, nose normal. [] Eyes: PERRLA, EOMI, conjunctiva normal, no discharge. [] Neck: Normal range of motion, no tenderness, supple, no stridor. [] Cardiovascular:Heart rate regular rhythm, no murmur [] Lungs & Thorax: Bilateral breath sounds clear to auscultation [] Abdomen: Bowel sounds normal, soft, no tenderness, no masses, no pulsatile masses. [] Skin: CHRONIC APPEARANCE SUPERFICIAL SKIN LESIONS ON LEFT LEG. Back: No tenderness, no CVA tenderness. [] Extremities: No tenderness, no cyanosis, no clubbing, ROM intact, no edema. [] Neurologic: Alert and oriented X 3, normal motor function, normal sensory function, no focal deficits noted. [] Psychologic: Affect normal, judgement normal, mood normal. [] (BRIAN MENDOZA DO) Current Patient Data Vital Signs Vital Signs Date Time Temp Pulse Resp B/P (MAP) Pulse Ox O2 Delivery O2 Flow Rate FiO2 10/25/18 18:30 82 21 154/83 (106) 100 Room Air 10/25/18 14:45 98.0 98.0 (DANIEL HURT Jr. DO) Lab Values Laboratory Tests Test 10/25/18 15:02 White Blood Count 4.3 x10^3/uL (4.0-11.0) Red Blood Count 4.65 x10^6/uL (4.30-5.70) Hemoglobin 13.2 g/dL (13.0-17.5) Hematocrit 39.8 % (39.0-53.0) Mean Corpuscular Volume 86 fL (79-100) Mean Corpuscular Hemoglobin 28 pg (25-35) Mean Corpuscular Hemoglobin Concent 33 g/dL (31-37) Red Cell Distribution Width 14.5 % (11.5-14.5) Platelet Count 144 x10^3/uL (140-400) Neutrophils (%) (Auto) 50 % (31-73) Lymphocytes (%) (Auto) 39 % (24-48) Monocytes (%) (Auto) 9 % (0-9) Eosinophils (%) (Auto) 2 % (0-3) Basophils (%) (Auto) 1 % (0-3) Neutrophils # (Auto) 2.1 x10^3uL (1.8-7.7) Lymphocytes # (Auto) 1.7 x10^3/uL (1.0-4.8) Monocytes # (Auto) 0.4 x10^3/uL (0.0-1.1) Eosinophils # (Auto) 0.1 x10^3/uL (0.0-0.7) Basophils # (Auto) 0.0 x10^3/uL (0.0-0.2) Prothrombin Time 14.6 SEC (11.7-14.0) H Prothrombin Time INR 1.2 (0.8-1.1) H PTT 28 SEC (24-38) Sodium Level 139 mmol/L (136-145) Potassium Level 3.8 mmol/L (3.5-5.1) Chloride Level 103 mmol/L (98-107) Carbon Dioxide Level 26 mmol/L (21-32) Anion Gap 10 (6-14) Blood Urea Nitrogen 18 mg/dL (8-26) Creatinine 1.0 mg/dL (0.7-1.3) Estimated GFR (Cockcroft-Gault) 96.5 BUN/Creatinine Ratio 18 (6-20) Glucose Level 142 mg/dL (70-99) H Calcium Level 8.6 mg/dL (8.5-10.1) Magnesium Level 1.7 mg/dL (1.8-2.4) L Total Bilirubin 0.4 mg/dL (0.2-1.0) Aspartate Amino Transferase (AST) 31 U/L (15-37) Alanine Aminotransferase (ALT) 53 U/L (16-63) Alkaline Phosphatase 71 U/L (46-116) Creatine Kinase 433 U/L (39-308) H Creatine Kinase MB (Mass) 2.8 ng/mL (0.0-3.6) Creatine Kinase MB Relative Index 0.6 % (0-4) Troponin I Quantitative < 0.017 ng/mL (0.000-0.055) RX-Tsu-H-Type Natriuretic Peptide 43 pg/mL (0-124) Total Protein 7.0 g/dL (6.4-8.2) Albumin 3.4 g/dL (3.4-5.0) Albumin/Globulin Ratio 0.9 (1.0-1.7) L Lipase 141 U/L (73-393) Laboratory Tests 10/25/18 15:02 Laboratory Tests 10/25/18 15:02 (DANIEL HURT Jr., DO) EKG EKG ekg was read by this physician at 1459 , rate of 82 bpm, sinus rhythm, no STEMI[] (BRIAN MENDOZA DO) Radiology/Procedures Radiology/Procedures [][address] [address] IMAGING REPORT Signed PATIENT: KEYLA YEE ACCOUNT: [id number] : 1970 LOCATION: ER AGE: 48 SEX: M EXAM STATUS: REG ER ORD. PHYSICIAN: BRIAN MENDOZA DO REASON: SHORTNESS OF AIR PROCEDURE: PORTABLE CHEST 1V PORTABLE CHEST 1V HISTORY: Shortness of air No prior study for comparison FINDINGS: Heart size mildly prominent but that is likely due to the portable technique and low lung volumes. No evidence of pneumothorax. No pleural effusion. No consolidating infiltrate. IMPRESSION: No evidence of acute infiltrate. Electronically signed by: Fish Smith MD (10/25/2018 3:30 PM) [facility] DICTATED and SIGNED BY: FISH SMITH MD DATE: 10/25/18 [address] [place] [address] IMAGING REPORT Signed PATIENT: KEYLA YEE ACCOUNT: [id number] : 1970 LOCATION: ER AGE: 48 SEX: M EXAM STATUS: REG ER ORD. PHYSICIAN: BRIAN MENDOZA DO REASON: CHEST PAIN, SOA, HX OF PE, DVT PROCEDURE: CT ANGIOGRAPHY CHEST Chest CTA History: Chest pain, shortness of air, pulmonary embolism and DVT Technique: After bolus of intravenous contrast, CT imaging was performed of the chest. Multiplanar reconstruction images to include MIP reconstruction images are submitted. Exposure: One or more of the following individualized dose reduction techniques were utilized for this examination: 1. Automated exposure control 2. Adjustment of the mA and/or kV according to patient size 3. Use of iterative reconstruction technique. Comparison: March 20, 2018 Findings: [ ] Pulmonary arteries are poorly opacified during exam for accurate evaluation. However despite the limitations of exam, there are likely some small emboli of the left lower lobe such as seen on images 81 and 82 series 3. There could be some other small emboli present of the right lower lobe as well as right upper lobe although otherwise cannot be accurately evaluated on this exam. There are again some calcified left hilar nodes. There is no pleural fluid or pneumothorax. There is no lobar consolidation. There is inferior vena cava filter present as seen previously, limited tips projecting beyond the expected wall and more lateral limb on the right deviated medially into lumen. There is probable small cyst of the right kidney. IMPRESSION: 1. Exam is limited for accurate evaluation of pulmonary emboli although suspect small left lower lobe pulmonary emboli. 2. There is inferior vena cava filter as stated, not fully evaluated. FOR INTERNAL CODING PURPOSES Critical result: Findings discussed with BRIAN MENDOZA at 10/25/2018 6:24 PM. RESULT CODE: (C) Electronically signed by: Radha Burroughs MD (10/25/2018 6:24 PM) [facility] DICTATED and SIGNED BY: RADHA BURROUGHS MD DATE: 10/25/18 1824 (BRIAN MENDOZA DO) Course & Med Decision Making Course & Med Decision Making Pertinent Labs and Imaging studies reviewed. (See chart for details) Patient presented with episode of shortness of air, he felt much better now. Had normal labs work and chest xray. EKG with sinus rhythm, no STEMI. CT CHEST SHOWN PE despite of having IVC FILTER AND ON XARELTO. Patient initially agreed to be admitted here. This physician called the hospitalist, Dr. Stuart, AGREED TO ADMIT PATIENT, RECOMMENDED [facility] ONE DOSE, WILL SEE PATIENT IN AM. Patient then changed his mind, wanted to be transferred to [facility] where he had medical care before, talked with transfer center, awaiting for acceptance of transfer. Patient's care was endorsed to Dr. Crow Hurt at 6:45 pm, awaiting for transfer to . (BRIAN MENDOZA DO) Course & Med Decision Making At the time of Dr. Mendoza's departure, we were awaiting confirmation from [facility] for transfer. transfer Center did return call and indicates that they are at admission capacity and are unable to accept the patient. I reviewed this with the patient and he is agreeable to being admitted to this facility. I have contacted Dr. Stuart and he will accept patient in admission. (DANIEL HURT Jr., DO) Dragon Disclaimer Dragon Disclaimer This electronic medical record was generated, in whole or in part, using a voice recognition dictation system. (BRIAN MENDOZA DO) Departure Departure Impression: Primary Impression: PE (pulmonary thromboembolism) Ruled Out: Dyspnea Disposition: ADMITTED INPATIENT Admitting Physician: HIMS (BRIAN MENDOZA DO) Admitting Physician: HIMFermin (Dr. Stuart) (DANIEL HURT Jr., DO) Condition: IMPROVED Referrals: NO PCP (PCP) BRIAN MENDOZA DO Oct 25, 2018 17:16 DANIEL HURT Jr., DO Oct 25, 2018 19:17
[2018-10-25] MEDS ORDERED: CONTRAST GIVEN. MC PRN (17:45)
[2018-10-25] MEDS ORDERED: IOHEXOL 350 MG/ML 100 ML VIAL. IV ONE (18:15)
--- NOTE | 2018-10-25 18:27 | RAD ---
Chest CTA History: Chest pain, shortness of air, pulmonary embolism and DVT Technique: After bolus of intravenous contrast, CT imaging was performed of the chest. Multiplanar reconstruction images to include MIP reconstruction images are submitted. Exposure: One or more of the following individualized dose reduction techniques were utilized for this examination: 1. Automated exposure control 2. Adjustment of the mA and/or kV according to patient size 3. Use of iterative reconstruction technique. Comparison: March 20, 2018 Findings: [ ] Pulmonary arteries are poorly opacified during exam for accurate evaluation. However despite the limitations of exam, there are likely some small emboli of the left lower lobe such as seen on images 81 and 82 series 3. There could be some other small emboli present of the right lower lobe as well as right upper lobe although otherwise cannot be accurately evaluated on this exam. There are again some calcified left hilar nodes. There is no pleural fluid or pneumothorax. There is no lobar consolidation. There is inferior vena cava filter present as seen previously, limited tips projecting beyond the expected wall and more lateral limb on the right deviated medially into lumen. There is probable small cyst of the right kidney. IMPRESSION: 1. Exam is limited for accurate evaluation of pulmonary emboli although suspect small left lower lobe pulmonary emboli. 2. There is inferior vena cava filter as stated, not fully evaluated. FOR INTERNAL CODING PURPOSES Critical result: Findings discussed with BRIAN MENDOZA at 10/25/2018 6:24 PM. RESULT CODE: (C) Electronically signed by: Naresh Burroughs MD (10/25/2018 6:24 PM) [facility]
[2018-10-25 20:23] VITALS: BP 135/75
[2018-10-25] MEDS ORDERED: RIVA20TA2 PO (22:42)
--- NOTE | 2018-10-25 23:43 | PDOC1 ---
History and Physical Date of Admission Date of Admission DATE: 10/25/18 TIME: 23:41 Identification/Chief Complaint Chief Complaint Chest pain Source Source: Chart review, Patient History of Present Illness History of Present Illness Mr Noyola is a 48 year old male w/ PMHx HTN, chronic lower back pain, smoker, chronic LLE DVT who presented to ER today for evaluation of episodic episodes of dyspnea, he felt like he could not get his breath for few seconds. He also describes a "ticklish feeling", points to his sternum and epigastric area. He notes this began when he was getting off work at [employer] at 1pm. Patient denies any chest pain. Patient has history DVT for the last 14 years, he was on Coumadin for over 10 years, 3 months ago his doctor put him on Xarelto. Patient is on 20 mg daily. He did have an IVC filter placed, he states approximately 6 years ago, it is still in place. Patient said he was seen at [facility] last week for the same problem, had ultrasound of his legs, it was negative for DVT. He also c/o cramping in his LLE in his thigh. Patient had no history of coronary artery disease, not diabetic, no cancer history. Patient denies any family history heart problem. He denies any recent travel or operation. Works fast food for a living. Mag level 1.7. CTPA was a difficult read, read as acute PE, admitted for further care Past Medical History Cardiovascular: HTN Pulmonary: No pertinent hx GI: No pertinent hx Heme/Onc: Other (LLE DVT) Hepatobiliary: No pertinent hx Psych: No pertinent hx Musculoskeletal: low back pain Rheumatologic: No pertinent hx Infectious disease: No pertinent hx ENT: No pertinent hx Renal/: No pertinent hx Endocrine: No pertinent hx Dermatology: No pertinent hx Past Surgical History Past Surgical History: No pertinent history Family History Family History: Family History Unknown Social History Smoke: <1 pack per day ALCOHOL: heavy Drugs: None Current Problem List Problem List Problems Medical Problems: (1) Dyspnea Status: Acute (2) PE (pulmonary thromboembolism) Status: Acute Current Medications Current Medications Current Medications Ketorolac Tromethamine (Toradol 30mg Vial) 30 mg 1X ONCE IV Last administered on 10/25/18at 16:24; Start 10/25/18 at 16:15; Stop 10/25/18 at 16:16; Status DC Iohexol (Omnipaque 350 Mg/ml) 100 ml 1X ONCE IV Last administered on 10/25/18at 18:10; Start 10/25/18 at 18:15; Stop 10/25/18 at 18:16; Status DC Info (CONTRAST GIVEN -- Rx MONITORING) 1 each PRN DAILY PRN MC SEE COMMENTS; Start 10/25/18 at 17:45; Stop 10/27/18 at 17:44 Enoxaparin Sodium (Lovenox 120mg Syringe) 110 mg 1X ONCE SQ Last administered on 10/25/18at 18:46; Start 10/25/18 at 19:15; Stop 10/25/18 at 19:16; Status DC Active Scripts Active Doxycycline Hyclate 100 Mg Tablet 100 Mg PO BID Hydrocodone-Apap 5-325 (Hydrocodone Bit/Acetaminophen) 1 Tab Tablet 1 Tab PO PRN Q6HRS PRN Clindamycin Hcl 300 Mg Capsule 1 Cap PO TID 14 Days Reported Xarelto (Rivaroxaban) 20 Mg Tablet 20 Mg PO DAILY Allergies Allergies: Coded Allergies: No Known Drug Allergies (Unverified , 03/20/18) ROS General: YES: Fatigue, Malaise; No: Chills, Night Sweats, Appetite, Other PSYCHOLOGICAL ROS: No: Anxiety, Behavioral Disorder, Concentration difficultie, Decreased libido, Depression, Disorientation, Hallucinations, Hostility, Irritablity, Memory difficulties, Mood Swings, Obsessive thoughts, Physical abuse, Sexual abuse, Sleep disturbances, Suicidal ideation, Other Eyes: No Blurry vision, No Decreased vision, No Double vision, No Dry eyes, No Excessive tearing, No Eye Pain, No Itchy Eyes, No Loss of vision, No Phot ophobia, No Scotomata, No Uses contacts, No Uses glasses, No Other HEENT: No: Heacaches, Visual Changes, Hearing change, Nasal congestion, Nasal discharge, Oral lesions, Sinus pain, Sore Throat, Epistaxis, Sneezing, Snoring, Tinnitus, Vertigo, Vocal changes, Other ALLERGY AND IMMUNOLOGY: No: Hives, Insect Bite Sensitivity, Itchy/Watery Eyes, Nasal Congestion, Post Nasal Drip, Seasonal Allergies, Other Hematological and Lymphatic: No: Bleeding Problems, Blood Clots, Blood Transfusions, Brusing, Night Sweats, Pallor, Swollen Lymph Nodes, Other ENDOCRINE: No: Breast Changes, Galactorrhea, Hair Pattern Changes, Hot Flashes, Malaise/lethargy, Mood Swings, Palpitations, Polydipsia/polyuria, Skin Changes, Temperature Intolerance, Unexpected Weight Changes, Other Breast: No New/Changing Breast Lumps, No Nipple changes, No Nipple discharge, No Other Respiratory: YES: Shortness of breath, SOB with excertion; No: Cough, Hemoptysis, Orthopnea, Pleuritic Pain, Sputum Changes, Stridor, Tachypnea, Wheezing, Other Cardiovascular: yes Chest Pain; No Palpitations, No Orthopnea, No Paroxysmal Noc. Dyspnea, No Edema, No Lt Headedness, No Other Gastrointestinal: No Nausea, No Vomiting, No Abdominal Pain, No Diarrhea, No Constipation, No Melena, No Hematochezia, No Other Genitourinary: No Dysuria, No Frequency, No Incontinence, No Hematuria, No Retention, No Discharge, No Urgency, No Pain, No Flank Pain, No Other, No , No , No , No , No , No , No Musculoskeletal: No Gait Disturbance, No Joint Pain, No Joint Stiffness, No Joint Swelling, No Muscle Pain, No Muscular Weakness, No Pain In:, No Swelling In:, No Other Neurological: No Behavorial Changes, No Bowel/Bladder ControlChng, No Confusion, No Dizziness, No Gait Disturbance, No Headaches, No Impaired Coord/balance, No Memory Loss, No Numbness/Tingling, No Seizures, No Speech Problems, No Tremors, No Visual Changes, No Weakness, No Other Skin: No Dry Skin, No Eczema, No Hair Changes, No Lumps, No Mole Changes, No Mottling, No Nail Changes, No Pruritus, No Rash, No Skin Lesion Changes, No Other, No Acne Physical Exam General: Alert, Oriented X3, Cooperative, No acute distress HEENT: Atraumatic, PERRLA, EOMI, Mucous membr. moist/pink Lungs: Clear to auscultation, Normal air movement Heart: S1S2, RRR, no gallops, no murmurs Abdomen: Normal bowel sounds, Soft, No tenderness, No hepatosplenomegaly, No masses Extremities: No clubbing, No cyanosis, No edema, Normal pulses, No tenderness/swelling Skin: No rashes, No breakdown, No significant lesion Neuro: Normal gait, Normal speech, Strength at 5/5 X4 ext, Normal tone, Sensation intact, Cranial nerves 3-12 NL, Reflexes 2+ Psych/Mental Status: Mental status NL, Mood NL Vitals Vitals Vital Signs Date Time Temp Pulse Resp B/P (MAP) Pulse Ox O2 Delivery O2 Flow Rate FiO2 10/25/18 20:00 75 17 136/68 (90) 99 Room Air 10/25/18 14:45 98.0 98.0 Labs Labs Laboratory Tests Test 10/25/18 15:02 White Blood Count 4.3 x10^3/uL (4.0-11.0) Red Blood Count 4.65 x10^6/uL (4.30-5.70) Hemoglobin 13.2 g/dL (13.0-17.5) Hematocrit 39.8 % (39.0-53.0) Mean Corpuscular Volume 86 fL (79-100) Mean Corpuscular Hemoglobin 28 pg (25-35) Mean Corpuscular Hemoglobin Concent 33 g/dL (31-37) Red Cell Distribution Width 14.5 % (11.5-14.5) Platelet Count 144 x10^3/uL (140-400) Neutrophils (%) (Auto) 50 % (31-73) Lymphocytes (%) (Auto) 39 % (24-48) Monocytes (%) (Auto) 9 % (0-9) Eosinophils (%) (Auto) 2 % (0-3) Basophils (%) (Auto) 1 % (0-3) Neutrophils # (Auto) 2.1 x10^3uL (1.8-7.7) Lymphocytes # (Auto) 1.7 x10^3/uL (1.0-4.8) Monocytes # (Auto) 0.4 x10^3/uL (0.0-1.1) Eosinophils # (Auto) 0.1 x10^3/uL (0.0-0.7) Basophils # (Auto) 0.0 x10^3/uL (0.0-0.2) Prothrombin Time 14.6 SEC (11.7-14.0) Prothromb Time International Ratio 1.2 (0.8-1.1) Activated Partial Thromboplast Time 28 SEC (24-38) Sodium Level 139 mmol/L (136-145) Potassium Level 3.8 mmol/L (3.5-5.1) Chloride Level 103 mmol/L (98-107) Carbon Dioxide Level 26 mmol/L (21-32) Anion Gap 10 (6-14) Blood Urea Nitrogen 18 mg/dL (8-26) Creatinine 1.0 mg/dL (0.7-1.3) Estimated GFR (Cockcroft-Gault) 96.5 BUN/Creatinine Ratio 18 (6-20) Glucose Level 142 mg/dL (70-99) Calcium Level 8.6 mg/dL (8.5-10.1) Magnesium Level 1.7 mg/dL (1.8-2.4) Total Bilirubin 0.4 mg/dL (0.2-1.0) Aspartate Amino Transf (AST/SGOT) 31 U/L (15-37) Alanine Aminotransferase (ALT/SGPT) 53 U/L (16-63) Alkaline Phosphatase 71 U/L (46-116) Creatine Kinase 433 U/L (39-308) Creatine Kinase MB (Mass) 2.8 ng/mL (0.0-3.6) Creatine Kinase MB Relative Index 0.6 % (0-4) Troponin I Quantitative < 0.017 ng/mL (0.000-0.055) WB-Ane-L-Type Natriuretic Peptide 43 pg/mL (0-124) Total Protein 7.0 g/dL (6.4-8.2) Albumin 3.4 g/dL (3.4-5.0) Albumin/Globulin Ratio 0.9 (1.0-1.7) Lipase 141 U/L (73-393) Laboratory Tests Test 10/25/18 15:02 White Blood Count 4.3 x10^3/uL (4.0-11.0) Red Blood Count 4.65 x10^6/uL (4.30-5.70) Hemoglobin 13.2 g/dL (13.0-17.5) Hematocrit 39.8 % (39.0-53.0) Mean Corpuscular Volume 86 fL (79-100) Mean Corpuscular Hemoglobin 28 pg (25-35) Mean Corpuscular Hemoglobin Concent 33 g/dL (31-37) Red Cell Distribution Width 14.5 % (11.5-14.5) Platelet Count 144 x10^3/uL (140-400) Neutrophils (%) (Auto) 50 % (31-73) Lymphocytes (%) (Auto) 39 % (24-48) Monocytes (%) (Auto) 9 % (0-9) Eosinophils (%) (Auto) 2 % (0-3) Basophils (%) (Auto) 1 % (0-3) Neutrophils # (Auto) 2.1 x10^3uL (1.8-7.7) Lymphocytes # (Auto) 1.7 x10^3/uL (1.0-4.8) Monocytes # (Auto) 0.4 x10^3/uL (0.0-1.1) Eosinophils # (Auto) 0.1 x10^3/uL (0.0-0.7) Basophils # (Auto) 0.0 x10^3/uL (0.0-0.2) Prothrombin Time 14.6 SEC (11.7-14.0) Prothromb Time International Ratio 1.2 (0.8-1.1) Activated Partial Thromboplast Time 28 SEC (24-38) Sodium Level 139 mmol/L (136-145) Potassium Level 3.8 mmol/L (3.5-5.1) Chloride Level 103 mmol/L (98-107) Carbon Dioxide Level 26 mmol/L (21-32) Anion Gap 10 (6-14) Blood Urea Nitrogen 18 mg/dL (8-26) Creatinine 1.0 mg/dL (0.7-1.3) Estimated GFR (Cockcroft-Gault) 96.5 BUN/Creatinine Ratio 18 (6-20) Glucose Level 142 mg/dL (70-99) Calcium Level 8.6 mg/dL (8.5-10.1) Magnesium Level 1.7 mg/dL (1.8-2.4) Total Bilirubin 0.4 mg/dL (0.2-1.0) Aspartate Amino Transf (AST/SGOT) 31 U/L (15-37) Alanine Aminotransferase (ALT/SGPT) 53 U/L (16-63) Alkaline Phosphatase 71 U/L (46-116) Creatine Kinase 433 U/L (39-308) Creatine Kinase MB (Mass) 2.8 ng/mL (0.0-3.6) Creatine Kinase MB Relative Index 0.6 % (0-4) Troponin I Quantitative < 0.017 ng/mL (0.000-0.055) SK-Mft-H-Type Natriuretic Peptide 43 pg/mL (0-124) Total Protein 7.0 g/dL (6.4-8.2) Albumin 3.4 g/dL (3.4-5.0) Albumin/Globulin Ratio 0.9 (1.0-1.7) Lipase 141 U/L (73-393) Images Images CTPA - Pulmonary arteries are poorly opacified during exam for accurate evaluation. However despite the limitations of exam, there are likely some small emboli of the left lower lobe such as seen on images 81 and 82 series 3. There could be some other small emboli present of the right lower lobe as well as right upper lobe although otherwise cannot be accurately evaluated on this exam. There are again some calcified left hilar nodes. There is no pleural fluid or pneumothorax. There is no lobar consolidation. There is inferior vena cava filter present as seen previously, limited tips projecting beyond the expected wall and more lateral limb on the right deviated medially into lumen. There is probable small cyst of the right kidney. IMPRESSION: 1. Exam is limited for accurate evaluation of pulmonary emboli although suspect small left lower lobe pulmonary emboli. 2. There is inferior vena cava filter as stated, not fully evaluated. VTE Prophylaxis Ordered VTE Prophylaxis Devices: No VTE Pharmacological Prophylaxi: Yes Assessment/Plan Assessment/Plan A/P: Acute PE - will give therapeutic lovenox, bridge back to xarelto in AM. Consult pulm Chronic LLE DVT - s/p IVC filter. At this point his IVC filter is more likely to be prothrombotic. Likely needs lifelong anticoagulation Chronic lower back pain - offered muscle relaxants ETOH use - counseled on cutting back Smoker - counseled on cessation, particularly with h/o blood clots Hypomagnesemia - will replace IV Hyperglycemia - will screen for DM2 FEN - General diet PPX - lovenox-->xarelto FULL CODE Inpatient for acute PE ROZINA CEBALLOS MD Oct 25, 2018 23:43
[2018-10-25] MEDS ORDERED: HYDROcodone/APAP 5/325MG 1 TAB TABLET PO PRN (23:45)
[2018-10-25] MEDS ORDERED: ANTI-COAG MONITOR BY PHARMACY. MC PRN (23:45)
[2018-10-25] MEDS ORDERED: ONDANSETRON PF 4 MG/2 ML VIAL. IV PRN (23:45)
[2018-10-25] MEDS ORDERED: SENNOSIDES/DOCUSATE 8.6/50MG TABLET. PO PRN (23:45)
[2018-10-25 23:57] VITALS: BP 128/81
[2018-10-26] MEDS ORDERED: CYCLOBENZAPRINE 10 MG TABLET. PO PRN
[2018-10-26] MEDS ORDERED: ALBUTEROL SULFATE 2.5 MG/3 ML NEBU. NEB PRN (00:15)
[2018-10-26] MEDS ORDERED: MAGNESIUM SULFATE 2GM 50 ML IV ONE (00:30)
[2018-10-26 03:57] VITALS: BP 132/84
[2018-10-26 04:46] LABS: BASO % 1 % (0-3); EOS # 0.1 x10^3/uL (0.0-0.7); EOS % 4 % (0-3); HEMATOCRIT 39.9 % (39.0-53.0); HEMOGLOBIN 13.3 g/dL (13.0-17.5); LYMPH # 2.1 x10^3/uL (1.0-4.8); LYMPH % 53 % (24-48); MEAN CORPUSCULAR HEMOGLOBIN 29 pg (25-35); MEAN CORPUSCULAR HGB CONC 33 g/dL (31-37); MEAN CORPUSCULAR VOLUME 86 fL (79-100); MONO # 0.4 x10^3/uL (0.0-1.1); MONO % 11 % (0-9); NEUT # 1.3 x10^3uL (1.8-7.7); NEUT % 32 % (31-73); PLATELET COUNT 139 x10^3/uL (140-400); RED BLOOD COUNT 4.67 x10^6/uL (4.30-5.70); RED CELL DISTRIBUTION WIDTH 14.4 % (11.5-14.5)
[2018-10-26 04:59] LABS: CALCIUM 8.6 mg/dL (8.5-10.1); CREATININE 0.9 mg/dL (0.7-1.3); POTASSIUM 3.7 mmol/L (3.5-5.1)
[2018-10-26 07:00] VITALS: BP 143/80
[2018-10-26] MEDS ORDERED: RIVAROXABAN 10 MG TABLET. PO SCH (08:00)
[2018-10-26 11:00] VITALS: BP 125/61
--- NOTE | 2018-10-26 11:56 | PDOC ---
PULMONARY PROGRESS NOTES Vitals Vital Signs Date Time Temp Pulse Resp B/P (MAP) Pulse Ox O2 Delivery O2 Flow Rate FiO2 10/26/18 11:00 98.3 85 18 125/61 (82) 100 Room Air 98.3 Labs Laboratory Tests Test 10/25/18 15:02 10/26/18 03:20 10/26/18 03:25 White Blood Count 4.3 x10^3/uL (4.0-11.0) 4.0 x10^3/uL (4.0-11.0) Red Blood Count 4.65 x10^6/uL (4.30-5.70) 4.67 x10^6/uL (4.30-5.70) Hemoglobin 13.2 g/dL (13.0-17.5) 13.3 g/dL (13.0-17.5) Hematocrit 39.8 % (39.0-53.0) 39.9 % (39.0-53.0) Mean Corpuscular Volume 86 fL (79-100) 86 fL (79-100) Mean Corpuscular Hemoglobin 28 pg (25-35) 29 pg (25-35) Mean Corpuscular Hemoglobin Concent 33 g/dL (31-37) 33 g/dL (31-37) Red Cell Distribution Width 14.5 % (11.5-14.5) 14.4 % (11.5-14.5) Platelet Count 144 x10^3/uL (140-400) 139 x10^3/uL (140-400) Neutrophils (%) (Auto) 50 % (31-73) 32 % (31-73) Lymphocytes (%) (Auto) 39 % (24-48) 53 % (24-48) Monocytes (%) (Auto) 9 % (0-9) 11 % (0-9) Eosinophils (%) (Auto) 2 % (0-3) 4 % (0-3) Basophils (%) (Auto) 1 % (0-3) 1 % (0-3) Neutrophils # (Auto) 2.1 x10^3uL (1.8-7.7) 1.3 x10^3uL (1.8-7.7) Lymphocytes # (Auto) 1.7 x10^3/uL (1.0-4.8) 2.1 x10^3/uL (1.0-4.8) Monocytes # (Auto) 0.4 x10^3/uL (0.0-1.1) 0.4 x10^3/uL (0.0-1.1) Eosinophils # (Auto) 0.1 x10^3/uL (0.0-0.7) 0.1 x10^3/uL (0.0-0.7) Basophils # (Auto) 0.0 x10^3/uL (0.0-0.2) 0.0 x10^3/uL (0.0-0.2) Prothrombin Time 14.6 SEC (11.7-14.0) Prothromb Time International Ratio 1.2 (0.8-1.1) Activated Partial Thromboplast Time 28 SEC (24-38) Sodium Level 139 mmol/L (136-145) 139 mmol/L (136-145) Potassium Level 3.8 mmol/L (3.5-5.1) 3.7 mmol/L (3.5-5.1) Chloride Level 103 mmol/L (98-107) 103 mmol/L (98-107) Carbon Dioxide Level 26 mmol/L (21-32) 27 mmol/L (21-32) Anion Gap 10 (6-14) 9 (6-14) Blood Urea Nitrogen 18 mg/dL (8-26) 14 mg/dL (8-26) Creatinine 1.0 mg/dL (0.7-1.3) 0.9 mg/dL (0.7-1.3) Estimated GFR (Cockcroft-Gault) 96.5 109.0 BUN/Creatinine Ratio 18 (6-20) Glucose Level 142 mg/dL (70-99) 87 mg/dL (70-99) Calcium Level 8.6 mg/dL (8.5-10.1) 8.6 mg/dL (8.5-10.1) Magnesium Level 1.7 mg/dL (1.8-2.4) Total Bilirubin 0.4 mg/dL (0.2-1.0) Aspartate Amino Transf (AST/SGOT) 31 U/L (15-37) Alanine Aminotransferase (ALT/SGPT) 53 U/L (16-63) Alkaline Phosphatase 71 U/L (46-116) Creatine Kinase 433 U/L (39-308) Creatine Kinase MB (Mass) 2.8 ng/mL (0.0-3.6) Creatine Kinase MB Relative Index 0.6 % (0-4) Troponin I Quantitative < 0.017 ng/mL (0.000-0.055) WV-Eud-Q-Type Natriuretic Peptide 43 pg/mL (0-124) Total Protein 7.0 g/dL (6.4-8.2) Albumin 3.4 g/dL (3.4-5.0) Albumin/Globulin Ratio 0.9 (1.0-1.7) Lipase 141 U/L (73-393) Laboratory Tests Test 10/25/18 15:02 10/26/18 03:20 10/26/18 03:25 White Blood Count 4.3 x10^3/uL (4.0-11.0) 4.0 x10^3/uL (4.0-11.0) Red Blood Count 4.65 x10^6/uL (4.30-5.70) 4.67 x10^6/uL (4.30-5.70) Hemoglobin 13.2 g/dL (13.0-17.5) 13.3 g/dL (13.0-17.5) Hematocrit 39.8 % (39.0-53.0) 39.9 % (39.0-53.0) Mean Corpuscular Volume 86 fL (79-100) 86 fL (79-100) Mean Corpuscular Hemoglobin 28 pg (25-35) 29 pg (25-35) Mean Corpuscular Hemoglobin Concent 33 g/dL (31-37) 33 g/dL (31-37) Red Cell Distribution Width 14.5 % (11.5-14.5) 14.4 % (11.5-14.5) Platelet Count 144 x10^3/uL (140-400) 139 x10^3/uL (140-400) Neutrophils (%) (Auto) 50 % (31-73) 32 % (31-73) Lymphocytes (%) (Auto) 39 % (24-48) 53 % (24-48) Monocytes (%) (Auto) 9 % (0-9) 11 % (0-9) Eosinophils (%) (Auto) 2 % (0-3) 4 % (0-3) Basophils (%) (Auto) 1 % (0-3) 1 % (0-3) Neutrophils # (Auto) 2.1 x10^3uL (1.8-7.7) 1.3 x10^3uL (1.8-7.7) Lymphocytes # (Auto) 1.7 x10^3/uL (1.0-4.8) 2.1 x10^3/uL (1.0-4.8) Monocytes # (Auto) 0.4 x10^3/uL (0.0-1.1) 0.4 x10^3/uL (0.0-1.1) Eosinophils # (Auto) 0.1 x10^3/uL (0.0-0.7) 0.1 x10^3/uL (0.0-0.7) Basophils # (Auto) 0.0 x10^3/uL (0.0-0.2) 0.0 x10^3/uL (0.0-0.2) Prothrombin Time 14.6 SEC (11.7-14.0) Prothromb Time International Ratio 1.2 (0.8-1.1) Activated Partial Thromboplast Time 28 SEC (24-38) Sodium Level 139 mmol/L (136-145) 139 mmol/L (136-145) Potassium Level 3.8 mmol/L (3.5-5.1) 3.7 mmol/L (3.5-5.1) Chloride Level 103 mmol/L (98-107) 103 mmol/L (98-107) Carbon Dioxide Level 26 mmol/L (21-32) 27 mmol/L (21-32) Anion Gap 10 (6-14) 9 (6-14) Blood Urea Nitrogen 18 mg/dL (8-26) 14 mg/dL (8-26) Creatinine 1.0 mg/dL (0.7-1.3) 0.9 mg/dL (0.7-1.3) Estimated GFR (Cockcroft-Gault) 96.5 109.0 BUN/Creatinine Ratio 18 (6-20) Glucose Level 142 mg/dL (70-99) 87 mg/dL (70-99) Calcium Level 8.6 mg/dL (8.5-10.1) 8.6 mg/dL (8.5-10.1) Magnesium Level 1.7 mg/dL (1.8-2.4) Total Bilirubin 0.4 mg/dL (0.2-1.0) Aspartate Amino Transf (AST/SGOT) 31 U/L (15-37) Alanine Aminotransferase (ALT/SGPT) 53 U/L (16-63) Alkaline Phosphatase 71 U/L (46-116) Creatine Kinase 433 U/L (39-308) Creatine Kinase MB (Mass) 2.8 ng/mL (0.0-3.6) Creatine Kinase MB Relative Index 0.6 % (0-4) Troponin I Quantitative < 0.017 ng/mL (0.000-0.055) HS-Wlr-E-Type Natriuretic Peptide 43 pg/mL (0-124) Total Protein 7.0 g/dL (6.4-8.2) Albumin 3.4 g/dL (3.4-5.0) Albumin/Globulin Ratio 0.9 (1.0-1.7) Lipase 141 U/L (73-393) Medications Active Scripts Medications Dose Route/Sig Max Daily Dose Days Date Category Xarelto (Rivaroxaban) 20 Mg Tablet 20 Mg PO DAILY 10/25/18 Reported Doxycycline Hyclate 100 Mg Tablet 100 Mg PO BID 08/13/18 Rx Hydrocodone-Apap 5-325 (Hydrocodone Bit/Acetaminophen) 1 Tab Tablet 1 Tab PO PRN Q6HRS PRN 07/08/18 Rx Clindamycin Hcl 300 Mg Capsule 1 Cap PO TID 14 07/08/18 Rx Impression . FULL NOTE DICTATED NO NEW CLOTS IN LUNGS PT HAS IVC FILTER HE IS TAKING XARELTO FOLLOW OK TO D/C HOME AND FOLLOW UP AT THANKS MAHAD FORTUNE MD Oct 26, 2018 11:56
[2018-10-26] MEDS ORDERED: HYDR-2761 PO (12:07)
--- NOTE | 2018-10-26 12:09 | PDOC3 ---
Discharge Summary Visit Information Date of Admission: Oct 25, 2018 Date of Discharge: Oct 26, 2018 Admitting Diagnosis Comment: ACute small PE or maybe no PE as per pulmonary note History left lower leg DVT, status post IVC filter-distant past-already on Xarelto obesity, BMI 33 Final Diagnosis Problems Medical Problems: (1) Dyspnea Status: Acute (2) PE (pulmonary thromboembolism) Status: Acute Brief Hospital Course Allergies Allergies Coded Allergies Type Severity Reaction Last Updated Verified tramadol Allergy Intermediate Rash 10/25/18 Yes Vital Signs Vital Signs Date Time Temp Pulse Resp B/P (MAP) Pulse Ox O2 Delivery O2 Flow Rate FiO2 10/26/18 11:00 98.3 85 18 125/61 (82) 100 Room Air 98.3 Lab Results Laboratory Tests Test 10/25/18 15:02 10/26/18 03:20 10/26/18 03:25 White Blood Count 4.3 x10^3/uL (4.0-11.0) 4.0 x10^3/uL (4.0-11.0) Red Blood Count 4.65 x10^6/uL (4.30-5.70) 4.67 x10^6/uL (4.30-5.70) Hemoglobin 13.2 g/dL (13.0-17.5) 13.3 g/dL (13.0-17.5) Hematocrit 39.8 % (39.0-53.0) 39.9 % (39.0-53.0) Mean Corpuscular Volume 86 fL (79-100) 86 fL (79-100) Mean Corpuscular Hemoglobin 28 pg (25-35) 29 pg (25-35) Mean Corpuscular Hemoglobin Concent 33 g/dL (31-37) 33 g/dL (31-37) Red Cell Distribution Width 14.5 % (11.5-14.5) 14.4 % (11.5-14.5) Platelet Count 144 x10^3/uL (140-400) 139 x10^3/uL (140-400) Neutrophils (%) (Auto) 50 % (31-73) 32 % (31-73) Lymphocytes (%) (Auto) 39 % (24-48) 53 % (24-48) Monocytes (%) (Auto) 9 % (0-9) 11 % (0-9) Eosinophils (%) (Auto) 2 % (0-3) 4 % (0-3) Basophils (%) (Auto) 1 % (0-3) 1 % (0-3) Neutrophils # (Auto) 2.1 x10^3uL (1.8-7.7) 1.3 x10^3uL (1.8-7.7) Lymphocytes # (Auto) 1.7 x10^3/uL (1.0-4.8) 2.1 x10^3/uL (1.0-4.8) Monocytes # (Auto) 0.4 x10^3/uL (0.0-1.1) 0.4 x10^3/uL (0.0-1.1) Eosinophils # (Auto) 0.1 x10^3/uL (0.0-0.7) 0.1 x10^3/uL (0.0-0.7) Basophils # (Auto) 0.0 x10^3/uL (0.0-0.2) 0.0 x10^3/uL (0.0-0.2) Prothrombin Time 14.6 SEC (11.7-14.0) Prothromb Time International Ratio 1.2 (0.8-1.1) Activated Partial Thromboplast Time 28 SEC (24-38) Sodium Level 139 mmol/L (136-145) 139 mmol/L (136-145) Potassium Level 3.8 mmol/L (3.5-5.1) 3.7 mmol/L (3.5-5.1) Chloride Level 103 mmol/L (98-107) 103 mmol/L (98-107) Carbon Dioxide Level 26 mmol/L (21-32) 27 mmol/L (21-32) Anion Gap 10 (6-14) 9 (6-14) Blood Urea Nitrogen 18 mg/dL (8-26) 14 mg/dL (8-26) Creatinine 1.0 mg/dL (0.7-1.3) 0.9 mg/dL (0.7-1.3) Estimated GFR (Cockcroft-Gault) 96.5 109.0 BUN/Creatinine Ratio 18 (6-20) Glucose Level 142 mg/dL (70-99) 87 mg/dL (70-99) Calcium Level 8.6 mg/dL (8.5-10.1) 8.6 mg/dL (8.5-10.1) Magnesium Level 1.7 mg/dL (1.8-2.4) Total Bilirubin 0.4 mg/dL (0.2-1.0) Aspartate Amino Transf (AST/SGOT) 31 U/L (15-37) Alanine Aminotransferase (ALT/SGPT) 53 U/L (16-63) Alkaline Phosphatase 71 U/L (46-116) Creatine Kinase 433 U/L (39-308) Creatine Kinase MB (Mass) 2.8 ng/mL (0.0-3.6) Creatine Kinase MB Relative Index 0.6 % (0-4) Troponin I Quantitative < 0.017 ng/mL (0.000-0.055) JR-Vos-N-Type Natriuretic Peptide 43 pg/mL (0-124) Total Protein 7.0 g/dL (6.4-8.2) Albumin 3.4 g/dL (3.4-5.0) Albumin/Globulin Ratio 0.9 (1.0-1.7) Lipase 141 U/L (73-393) Laboratory Tests Test 10/25/18 15:02 10/26/18 03:20 10/26/18 03:25 White Blood Count 4.3 x10^3/uL (4.0-11.0) 4.0 x10^3/uL (4.0-11.0) Red Blood Count 4.65 x10^6/uL (4.30-5.70) 4.67 x10^6/uL (4.30-5.70) Hemoglobin 13.2 g/dL (13.0-17.5) 13.3 g/dL (13.0-17.5) Hematocrit 39.8 % (39.0-53.0) 39.9 % (39.0-53.0) Mean Corpuscular Volume 86 fL (79-100) 86 fL (79-100) Mean Corpuscular Hemoglobin 28 pg (25-35) 29 pg (25-35) Mean Corpuscular Hemoglobin Concent 33 g/dL (31-37) 33 g/dL (31-37) Red Cell Distribution Width 14.5 % (11.5-14.5) 14.4 % (11.5-14.5) Platelet Count 144 x10^3/uL (140-400) 139 x10^3/uL (140-400) Neutrophils (%) (Auto) 50 % (31-73) 32 % (31-73) Lymphocytes (%) (Auto) 39 % (24-48) 53 % (24-48) Monocytes (%) (Auto) 9 % (0-9) 11 % (0-9) Eosinophils (%) (Auto) 2 % (0-3) 4 % (0-3) Basophils (%) (Auto) 1 % (0-3) 1 % (0-3) Neutrophils # (Auto) 2.1 x10^3uL (1.8-7.7) 1.3 x10^3uL (1.8-7.7) Lymphocytes # (Auto) 1.7 x10^3/uL (1.0-4.8) 2.1 x10^3/uL (1.0-4.8) Monocytes # (Auto) 0.4 x10^3/uL (0.0-1.1) 0.4 x10^3/uL (0.0-1.1) Eosinophils # (Auto) 0.1 x10^3/uL (0.0-0.7) 0.1 x10^3/uL (0.0-0.7) Basophils # (Auto) 0.0 x10^3/uL (0.0-0.2) 0.0 x10^3/uL (0.0-0.2) Prothrombin Time 14.6 SEC (11.7-14.0) Prothromb Time International Ratio 1.2 (0.8-1.1) Activated Partial Thromboplast Time 28 SEC (24-38) Sodium Level 139 mmol/L (136-145) 139 mmol/L (136-145) Potassium Level 3.8 mmol/L (3.5-5.1) 3.7 mmol/L (3.5-5.1) Chloride Level 103 mmol/L (98-107) 103 mmol/L (98-107) Carbon Dioxide Level 26 mmol/L (21-32) 27 mmol/L (21-32) Anion Gap 10 (6-14) 9 (6-14) Blood Urea Nitrogen 18 mg/dL (8-26) 14 mg/dL (8-26) Creatinine 1.0 mg/dL (0.7-1.3) 0.9 mg/dL (0.7-1.3) Estimated GFR (Cockcroft-Gault) 96.5 109.0 BUN/Creatinine Ratio 18 (6-20) Glucose Level 142 mg/dL (70-99) 87 mg/dL (70-99) Calcium Level 8.6 mg/dL (8.5-10.1) 8.6 mg/dL (8.5-10.1) Magnesium Level 1.7 mg/dL (1.8-2.4) Total Bilirubin 0.4 mg/dL (0.2-1.0) Aspartate Amino Transf (AST/SGOT) 31 U/L (15-37) Alanine Aminotransferase (ALT/SGPT) 53 U/L (16-63) Alkaline Phosphatase 71 U/L (46-116) Creatine Kinase 433 U/L (39-308) Creatine Kinase MB (Mass) 2.8 ng/mL (0.0-3.6) Creatine Kinase MB Relative Index 0.6 % (0-4) Troponin I Quantitative < 0.017 ng/mL (0.000-0.055) WA-Was-L-Type Natriuretic Peptide 43 pg/mL (0-124) Total Protein 7.0 g/dL (6.4-8.2) Albumin 3.4 g/dL (3.4-5.0) Albumin/Globulin Ratio 0.9 (1.0-1.7) Lipase 141 U/L (73-393) Brief Hospital Course Mr. Noyola is a 48 old heavy set -[place] male who was admitted for some symptoms and on CTA found to have maybe a small PE but could also be an artifact as per radiologist read. Pulmonary consulted, thought there is no new PE. History of left lower leg DVT already on Xarelto, has an IVC filter in place Hemodynamically stable Unfortunately is narcotic seeking and requested to stay but after heavy education counseling was amenable to be discharged on by mouth pain meds Consults performed pulmonary Procedures performed none Observation status stay Discharge Information Condition at Discharge: Improved, Stable Disposition/Orders: D/C to Home Scheduled Clindamycin Hcl (Clindamycin Hcl) 300 Mg Capsule, 1 CAP PO TID for Infection for 14 Days, #42 Prescribed by: RORO GEORGE D.O. on 07/08/18 2306 Last Taken: Unknown Dose on Unknown Date & Time Last Action: Last Taken Edited on 10/25/182241 by LAURA NEVAREZ Doxycycline Hyclate (Doxycycline Hyclate) 100 Mg Tablet, 100 MG PO BID, #20 Prescribed by: ALYSA BOONE DO on 08/13/18 1427 Last Taken: Unknown Dose on Unknown Date & Time Last Action: Last Taken Edited on 10/25/182241 by LAURA NEVAREZ Rivaroxaban (Xarelto) 20 Mg Tablet, 20 MG PO DAILY for anticoagulation, (Reported) Entered as Reported by: LAURA NEVAREZ on 10/25/182241 Last Taken: Unknown Dose on 10/25/18 0900 Last Action: Converted on 10/25/182340 by ROZINA CEBALLOS MD Scheduled PRN Hydrocodone Bit/Acetaminophen (Hydrocodone-Apap 5-325 ) 1 Tab Tablet, 1 TAB PO PRN Q8HRS PRN for PAIN MDD 1, #30 Ref 0 Prescribed by: JEFFREY CAI on 10/26/18 1207 JEFFREY CAI MD Oct 26, 2018 12:09
--- NOTE | 2018-10-26 13:30 | NUR ---
Discharge instructions given to patient and family member. Reviewed discharge orders, medications, and for him to follow up with [facility]. Patient verbalizes understanding.
--- NOTE | 2018-10-26 19:10 | CONS ---
DATE OF CONSULTATION: 10/26/2018 REASON FOR CONSULTATION: The patient seen in pulmonary consultation at the request of Dr. Stuart for history of DVT, PE. HISTORY OF PRESENT ILLNESS: The patient is a 48-year-old male that when asked why he presented to the Emergency Room, he started pointing to some chest discomfort in the substernal epigastric region. He states that he lied down. He had some discomfort. He also had some discomfort in the back. He was evaluated in the Emergency Room and underwent CT angiogram. He has a prior history of DVT and PE dating back to 14 years. He is normally followed on at [facility]. He was initially on Coumadin. He is now on Xarelto. He also has an IVC filter placement. The patient denies any acute onset of shortness of air associated with syncope or any syncopal episode. No pleuritic type of discomfort. He did have some cramping of the left lower extremity, pointed towards the thigh. Otherwise, he states I queried him about reflux. He does drink lots of root beer. Part of his workup included CT angiogram. I reviewed the CT. I do not appreciate any central pulmonary emboli. There was an IVC filter in place. The patient also had venous Dopplers of the lower extremities during his last visit here on 07/08/2018 revealing long segmental nonocclusive deep venous thrombosis throughout the superficial vein to the popliteal vein and calf veins were not well visualized. PAST MEDICAL HISTORY: 1. DVT, PE diagnosed 14 years ago, status post IVC filter placement. Currently, patient is on Xarelto. He follows at [facility]. 2. Hypertension. 3. Chronic back pain. 4. Gastroesophageal reflux. ALLERGIES: TRAMADOL. FAMILY HISTORY: No family history of thrombophilia, unknown. PAST SURGICAL HISTORY: As above. SOCIAL HISTORY: He smokes heavy use of alcohol. REVIEW OF SYSTEMS: CONSTITUTIONAL: No fever or chills. EYES: No change in visual acuity. HEENT: No nasal congestion or sore throat. PULMONARY: As indicated above. CARDIOVASCULAR: No chest pain. No pressure. GASTROINTESTINAL: As indicated above, reflux symptomatology. GENITOURINARY: No dysuria or frequency. MUSCULOSKELETAL: No localized muscle aches or joint pains. SKIN: No new skin rashes. NEUROLOGIC: No headaches, diplopia or blurred vision. CURRENT MEDICATIONS: List was reviewed. PHYSICAL EXAMINATION: VITAL SIGNS: The patient was in no respiratory distress. O2 saturation on room air was 100%. HEENT: Eyes, the sclerae were nonicteric. NECK: Jugular venous distention was not elevated. No lymphadenopathy. CHEST: Full expansion. LUNGS: Adequate airway flow, no wheezes. CARDIOVASCULAR: Regular rate and rhythm with S1, S2, no S3. ABDOMEN: Soft, nontender, nondistended. EXTREMITIES: No clubbing, cyanosis or edema. NEUROLOGIC: The patient was awake, alert, following commands. A detailed neuro exam was not performed. LABORATORY DATA: INR was 1.2. White count was normal. Hemoglobin and hematocrit were normal. Electrolytes were noted. IMPRESSION: 1. Chest pain, suspect secondary to reflux. 2. No evidence of new pulmonary embolism on current CT chest. 3. History of pulmonary embolism, deep venous thrombosis, status post IVC filter placement. The patient follows up at . This was initially diagnosed 14 years ago. 4. Status post IVC filter placement. 5. Hypertension. 6. Gastroesophageal reflux. PLAN: 1. Continue Xarelto, follow up at once discharged. 2. The patient instructed on the importance of discontinuing all caffeinated beverages, perform certain lifestyle changes to reduce reflux and current symptoms that he is experiencing. 3. Okay to discharge home from my standpoint of view. I do appreciate the privilege in sharing in the patient's care. MAHAD FORTUNE MD DR: OLIVIA/gertrude JOB#: [id number] / [id number]
== END 2018-10-26 13:27 | disposition home or self-care (01) | DRG 392 ==
LOC: ER 14:20 → 6 SOUTH 19:17
PROVIDERS: ADMIT Internal Medicine; ATTEND Internal Medicine
DX: K21.9 Gastro-esophageal reflux disease without esophagitis (principal); I82.5Z2 Chronic embolism and thrombosis of unspecified deep veins of left distal lower extremity; F17.210 Nicotine dependence, cigarettes, uncomplicated; G89.29 Other chronic pain; I10 Essential (primary) hypertension; Z79.01 Long term (current) use of anticoagulants; Z86.711 Personal history of pulmonary embolism; E66.9 Obesity, unspecified; Z95.828 Presence of other vascular implants and grafts; E83.42 Hypomagnesemia; M54.5 Low back pain; R73.9 Hyperglycemia, unspecified; Z88.8 Allergy status to other drugs, medicaments and biological substances; Z79.899 Other long term (current) drug therapy; Z71.6 Tobacco abuse counseling; Z68.32 Body mass index [BMI] 32.0-32.9, adult
CPT/HCPCS: 36415; 71045; 71275; 80048; 80053; 82550; 82553; 83036; 83690; 83735; 83880; 84484; 85025; 85610; 85730; 93005; 96372; 96374; J1650; J1885; J3475; Q9967; 99285-25

== ENCOUNTER 2019-01-05 05:37 | Emergency (ER) | payer SELFPAY ==
[~2019-01-05] VITALS: Ht 188 cm; Wt 108.9 kg
[~2019-01-05 05:37] MED LIST changes: +RIVA20TA2 PO
--- NOTE | 2019-01-05 06:27 | PHYS DOC ---
Past Medical History Past Medical History: DVT, Hypertension, Other Additional Past Medical Histor: CHRONIC BACK PAIN,UMBILICAL HERNIA Past Surgical History: Other Additional Past Surgical Histo: L KNEE Alcohol Use: Occasionally Drug Use: None Adult General Chief Complaint Chief Complaint: LOWER EXT PAIN HPI HPI Patient is a 48-year-old male who presents to the emergency department for evaluation. He states that he has had a chronic wound on his left leg for many years, which has mostly healed and scabbed up. He states he developed pain over the past few days around the site of the wound. He has not had any drainage from the wound, or any recurrent injuries. Has not had any fevers or chills. He denies any chest pain or shortness of breath. Palpation of the affected area worsens his pain. There are no alleviating factors to his symptoms. He has a prior history of a DVT in his left leg, and currently takes Xarelto. Review of Systems Review of Systems Constitutional: Denies fever or chills [] Eyes: Denies change in visual acuity, redness, or eye pain [] HENT: Denies nasal congestion or sore throat [] Respiratory: Denies cough or shortness of breath [] Cardiovascular: The patient denies any shortness of breath, chest pain, palpitations, or orthopnea [] GI: Denies abdominal pain, nausea, vomiting, bloody stools or diarrhea [] : Denies dysuria or hematuria [] Musculoskeletal: Denies back pain or joint pain [] Integument: Denies rash or skin lesions, except as noted in the history of present illness. [] Neurologic: Denies headache, focal weakness or sensory changes [] Endocrine: Denies polyuria or polydipsia [] All other systems were reviewed and found to be within normal limits, except as documented in this note. Allergies Allergies Allergies Coded Allergies Type Severity Reaction Last Updated Verified tramadol Allergy Intermediate Rash 10/25/18 Yes Physical Exam Physical Exam PHYSICAL EXAM: CONSTITUTIONAL: Well developed, well nourished HEAD: normocephalic, atraumatic EENT: PERRL, EOMI. Conjunctivae normal color, sclerae non-icteric; moist mucous membranes. NECK: Supple, non-tender; no meningismus. LUNGS: Lungs CTA, breathing even and unlabored. Normal air movement. HEART: Regular rate and rhythm, no murmur CHEST: No deformity; non-tender ABDOMEN: The abdomen is soft, and non-tender, no masses or bruits. EXTREM: Normal ROM; no deformity, no calf tenderness. Normal pulses palpable in all extremities. There is mild bilateral pedal edema. On the medial aspect of the distal left leg, just proximal to the ankle, there is an approximately quarter dollar sized area where there appears to be a healed chronic wound, with a scab, without any warmth or erythema. There are skin changes of chronic venous stasis on the left lower extremity, with tenderness to palpation of the soft tissues immediately surrounding the left lower extremity wound, the remainder the soft tissues are not as tender. There is no warmth or erythema noted. There is a strong palpable dorsalis pedis pulse on the left foot. SKIN: No rash; no diaphoresis NEURO: Alert; normal speech and cognition; CN's grossly intact; strength grossly intact without focal deficit. BACK: No CVA TTP. Current Patient Data Vital Signs Vital Signs Date Time Temp Pulse Resp B/P (MAP) Pulse Ox O2 Delivery O2 Flow Rate FiO2 01/05/19 07:45 68 15 132/84 (100) 98 Room Air 01/05/19 05:40 98.1 98.1 Lab Values Laboratory Tests Test 01/05/19 06:30 01/05/19 06:55 White Blood Count 3.3 x10^3/uL (4.0-11.0) L Red Blood Count 4.56 x10^6/uL (4.30-5.70) Hemoglobin 13.1 g/dL (13.0-17.5) Hematocrit 38.9 % (39.0-53.0) L Mean Corpuscular Volume 85 fL (79-100) Mean Corpuscular Hemoglobin 29 pg (25-35) Mean Corpuscular Hemoglobin Concent 34 g/dL (31-37) Red Cell Distribution Width 13.7 % (11.5-14.5) Platelet Count 150 x10^3/uL (140-400) Neutrophils (%) (Auto) 38 % (31-73) Lymphocytes (%) (Auto) 48 % (24-48) Monocytes (%) (Auto) 11 % (0-9) H Eosinophils (%) (Auto) 2 % (0-3) Basophils (%) (Auto) 1 % (0-3) Neutrophils # (Auto) 1.2 x10^3/uL (1.8-7.7) L Lymphocytes # (Auto) 1.6 x10^3/uL (1.0-4.8) Monocytes # (Auto) 0.4 x10^3/uL (0.0-1.1) Eosinophils # (Auto) 0.1 x10^3/uL (0.0-0.7) Basophils # (Auto) 0.0 x10^3/uL (0.0-0.2) Erythrocyte Sedimentation Rate 4 (0-15) Sodium Level 139 mmol/L (136-145) Potassium Level 4.0 mmol/L (3.5-5.1) Chloride Level 104 mmol/L (98-107) Carbon Dioxide Level 25 mmol/L (21-32) Anion Gap 10 (6-14) Blood Urea Nitrogen 12 mg/dL (8-26) Creatinine 0.9 mg/dL (0.7-1.3) Estimated GFR (Cockcroft-Gault) 109.0 Glucose Level 106 mg/dL (70-99) H Calcium Level 8.5 mg/dL (8.5-10.1) C-Reactive Protein, Quantitative 1.5 mg/L (0-3.3) Laboratory Tests 01/05/19 06:30 Laboratory Tests 01/05/19 06:55 EKG EKG Normal sinus rhythm at a rate of 64 bpm, normal axis, incomplete right bundle- branch block with otherwise normal intervals. There are no acute ischemic ST/T changes, the EKG is not significantly changed compared to patient's prior EKG.[] Radiology/Procedures Radiology/Procedures [PROCEDURE: VENOUS LOWER EXTREMITY LEFT EXAM: Left lower extremity venous Doppler. HISTORY: Left lower extremity pain/swelling. Known deep venous thrombosis. COMPARISON: 07/08/2018. FINDINGS: Grayscale and Doppler analysis of the left lower extremity deep venous system was performed with graded compression and augmentation. The common femoral, greater saphenous, superficial femoral, popliteal and calf veins were assessed. Nonocclusive thrombus is again noted within the left distal superficial femoral vein extending to the popliteal vein. The extent of thrombus appears decreased since the prior study. The calf veins are not well visualized. No clearly new thrombus is seen. IMPRESSION: 1. Chronic nonocclusive deep venous thrombosis extending from the distal superficial femoral vein into the popliteal vein. This is decreased since June. ] PROCEDURE: TIBIA FIBULA LEFT Indication: Left posterior calf pain. History of DVT. TECHNIQUE: 2 views of the left tibia and fibula COMPARISON: None Findings/ impression: No acute fracture or dislocation. Course & Med Decision Making Course & Med Decision Making Pertinent Labs and Imaging studies reviewed. (See chart for details) []Patient remains stable. I discussed test results, the need for close follow- up, and return precautions. Patient will be given a list of local PCPs to help facilitate outpatient follow-up. Dragon Disclaimer Dragon Disclaimer This electronic medical record was generated, in whole or in part, using a voice recognition dictation system. Departure Departure Impression: Primary Impression: Leg pain Additional Impression: Chronic venous stasis dermatitis Disposition: HOME, SELF-CARE Condition: STABLE Patient Instructions: Venous Stasis and Chronic Venous Insufficiency Additional Instructions: Use the list provided physicians to help establish a primary care provider to help guide further outpatient evaluation and monitoring. Scripts Acetaminophen With Codeine (TYLENOL WITH CODEINE #3 TABLET) 1 Each Tablet 1 TAB PO PRN Q6HRS PRN for PAIN, #10 TAB Prov: JESS CUNNINGHAM MD 01/05/19 Problem Qualifiers JESS CUNNINGHAM MD Jan 05, 2019 06:27
--- NOTE | 2019-01-05 06:28 | EKG ---
[facility] [address] [place] [address] Test Date: 2019-01-05 Test Time: 05:47:24 Pat Name: KEYLA YEE Department: Room: Gender: M Visitor Services Information Assistant: : 1970 Requested By: JESS CUNNINGHAM Order Number: [id number] Reading MD: Yovani Leal MD Measurements Intervals [place] Rate: 64 P: 49 MI: 214 QRS: 99 QRSD: 78 T: 49 QT: 374 QTc: 389 Interpretive Statements SINUS RHYTHM Electronically Signed On 01-07-2019 11:20:41 CDT by Yovani Leal MD
[2019-01-05 06:41] LABS: BASO % 1 % (0-3); EOS # 0.1 x10^3/uL (0.0-0.7); EOS % 2 % (0-3); HEMATOCRIT 38.9 % (39.0-53.0); HEMOGLOBIN 13.1 g/dL (13.0-17.5); LYMPH # 1.6 x10^3/uL (1.0-4.8); LYMPH % 48 % (24-48); MEAN CORPUSCULAR HEMOGLOBIN 29 pg (25-35); MEAN CORPUSCULAR HGB CONC 34 g/dL (31-37); MEAN CORPUSCULAR VOLUME 85 fL (79-100); MONO # 0.4 x10^3/uL (0.0-1.1); MONO % 11 % (0-9); NEUT # 1.2 x10^3/uL (1.8-7.7); NEUT % 38 % (31-73); PLATELET COUNT 150 x10^3/uL (140-400); RED BLOOD COUNT 4.56 x10^6/uL (4.30-5.70); RED CELL DISTRIBUTION WIDTH 13.7 % (11.5-14.5); WHITE BLOOD COUNT 3.3 x10^3/uL (4.0-11.0)
--- NOTE | 2019-01-05 06:59 | RAD ---
EXAM: Left lower extremity venous Doppler. HISTORY: Left lower extremity pain/swelling. Known deep venous thrombosis. COMPARISON: 07/08/2018. FINDINGS: Grayscale and Doppler analysis of the left lower extremity deep venous system was performed with graded compression and augmentation. The common femoral, greater saphenous, superficial femoral, popliteal and calf veins were assessed. Nonocclusive thrombus is again noted within the left distal superficial femoral vein extending to the popliteal vein. The extent of thrombus appears decreased since the prior study. The calf veins are not well visualized. No clearly new thrombus is seen. IMPRESSION: 1. Chronic nonocclusive deep venous thrombosis extending from the distal superficial femoral vein into the popliteal vein. This is decreased since June. Electronically signed by: Bhavna Aj MD (01/05/2019 6:56 AM) [facility]
[2019-01-05 07:32] LABS: CALCIUM 8.5 mg/dL (8.5-10.1); CREATININE 0.9 mg/dL (0.7-1.3)
--- NOTE | 2019-01-05 07:38 | RAD ---
Indication: Left posterior calf pain. History of DVT. TECHNIQUE: 2 views of the left tibia and fibula COMPARISON: None Findings/ impression: No acute fracture or dislocation. Electronically signed by: Grady Richey DO (01/05/2019 7:34 AM) [facility]
[2019-01-05 07:43] LABS: C-REACTIVE PROTEIN 1.5 mg/L (0-3.3)
[2019-01-05] MEDS ORDERED: ACET-704 PO (08:19)
[2019-01-05 08:45] VITALS: BP 137/80
== END 2019-01-05 08:48 | disposition home or self-care (01) ==
LOC: ER 05:37
DX: I87.2 Venous insufficiency (chronic) (peripheral) (principal); G89.29 Other chronic pain; I10 Essential (primary) hypertension; Z88.6 Allergy status to analgesic agent
CPT/HCPCS: 36415; 73590; 80048; 85025; 85651; 86140; 93005; 93971; 99285-25

== ENCOUNTER → 2019-07-06 | Outpatient (CLI) | payer BC ==
[2019-04-01 11:36] VITALS: BP 129/70
[~2019-07-06] MED LIST changes: +ACET-704 PO; +ACET325T9 PO; +Folic Acid PO; +MULT1TAB90 PO; +RIVA15TA PO; +THIA100T22 PO
--- NOTE | 2019-07-07 13:36 | RAD ---
MR#: [id number] Date of Study: 07/06/2019 Ordering Physician: WANDA FAUSTIN, Referring Physician: WANDA FAUSTIN, Tech: RASHIDA Cochran, RDIA, t APPROVED REPORT Patient Location : OUT-PATIENT Indications Lower Extremity Pain : Lower Extremity Edema : Varicose Veins Skin Changes Risk Factors Obesity Findings Grayscale images of the bilateral saphenofemoral junctions are grossly unremarkable. There is mild reflux noted in the color Doppler images at the saphenofemoral junctions bilaterally The right great left saphenous veins measure approximately 9 and 10 mm respectively. There is 1.5 and 1.8 seconds of reflux respectively in the right and left great saphenous veins. Bilateral lesser saphenous veins do not show any evidence of reflux. Critical Notification Critical Value: No <Conclusion> 1. Positive for reflux in the bilateral greater saphenous veins Signed by : Yovani Leal, Electronically Approved : 07/06/2019 13:31:11
--- NOTE | 2019-07-07 13:36 | CARD ---
MR#: [id number] Date of Study: 07/06/2019 Ordering Physician: WANDA FAUSTIN, Referring Physician: WANDA FAUSTIN, Tech: Erin Sanchez RDCS APPROVED REPORT EXAM: Two-dimensional and M-mode echocardiogram with Doppler and color Doppler. Other Information Quality : AverageHR: 68bpm INDICATION Chest Pain SOA 2D DIMENSIONS RVDd3.6 (2.9-3.5cm)Left Atrium(2D)3.1 (1.6-4.0cm) IVSd1.3 (0.7-1.1cm)Aortic Root(2D)3.1 (2.0-3.7cm) LVDd4.5 (3.9-5.9cm)LVOT Diameter2.1 (1.8-2.4cm) PWd1.2 (0.7-1.1cm)LVDs3.0 (2.5-4.0cm) FS (%) 33.6 %SV57.7 ml LVEF(%)62.4 (>50%) Aortic Valve AoV Peak Rome.105.8cm/Nuvia Peak GR.4.5mmHg LVOT Peak Rome.91.0cm/sAVA (VMAX)2.86cm2 Mitral Valve MV E Dgrroqhp56.9cm/sMV DECEL [id number] MV A Sgnhcnhd94.1cm/sE/A Ratio1.3 Pulmonary Valve PV Peak Pereyhtp278.6cm/s Tricuspid Valve RAP [id number] Pulmonary Vein S1 Eyhanhik40.7cm/sD2 Lcyghnul28.6cm/s PVa [id number] LEFT VENTRICLE The left ventricle is normal size. There is mild concentric left ventricular hypertrophy. The left ve ntricular systolic function is normal and the ejection fraction is within normal range. The Ejection Fraction is 60%. There is normal LV segmental wall motion. Transmitral Doppler flow pattern is Grade II-pseudonormal filling dynamics. There is no ventricular septal defect visualized. RIGHT VENTRICLE The right ventricle is normal size. The right ventricular systolic function is normal. ATRIA The left atrium size is normal. The right atrium size is normal. The interatrial septum is intact wit h no evidence for an atrial septal defect or patent foramen ovale as noted on 2-D or Doppler imaging. AORTIC VALVE The aortic valve is mildly sclerotic. Doppler and Color Flow revealed no significant aortic regurgita tion. There is no significant aortic valvular stenosis. MITRAL VALVE The mitral valve is normal in structure and function. There is no evidence of mitral valve prolapse. There is no mitral valve stenosis. Doppler and Color Flow revealed no mitral valve regurgitation note d. TRICUSPID VALVE The tricuspid valve is normal in structure and function. Doppler and Color Flow revealed no tricuspid valve regurgitation noted. Unable to assess PA pressure. There is no tricuspid valve stenosis. PULMONIC VALVE Doppler and Color Flow revealed no pulmonic valvular regurgitation. There is no pulmonic valvular rachel nosis. GREAT VESSELS The aortic root is normal in size. The ascending aorta is normal in size. The IVC is normal in size a nd collapses >50% with inspiration. PERICARDIAL EFFUSION There is no pleural effusion. There is no evidence of significant pericardial effusion. Critical Notification Critical Value: No <Conclusion> The left ventricular systolic function is normal and the ejection fraction is within normal range. Th e Ejection Fraction is 60%. There is normal LV segmental wall motion. Signed by : Yovani Leal, Electronically Approved : 07/06/2019 13:29:09
== END | disposition home or self-care (01) ==
LOC: US 14:56
PROVIDERS: ATTEND Internal Medicine Cardiovascular Disease
DX: I35.8 Other nonrheumatic aortic valve disorders (principal); I51.7 Cardiomegaly; I83.93 Asymptomatic varicose veins of bilateral lower extremities; I87.2 Venous insufficiency (chronic) (peripheral)
CPT/HCPCS: 93306; 93970

== ENCOUNTER 2019-07-26 08:44 | Emergency (ER) | payer BC ==
[~2019-07-26] VITALS: Ht 182.9 cm; Wt 115.0 kg
--- NOTE | 2019-07-26 09:39 | PHYS DOC ---
Past Medical History Past Medical History: DVT, Hypertension, Other Additional Past Medical Histor: CHRONIC BACK PAIN,UMBILICAL HERNIA Past Surgical History: Other Additional Past Surgical Histo: L KNEE Smoking Status: Current Every Day Smoker Alcohol Use: Occasionally Drug Use: None Adult General Chief Complaint Chief Complaint: CHEST PAIN HPI HPI Patient is a 49 year old male who presents with multiple complaints. Patient reports for the last month, he has had some intermittent tingling in his right arm, when he wakes up in the morning. States THE SAME THING IN HIS LEFT ARM IN THE MORNINGS. IMPROVES THROUGHOUT THE DAY. 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 STATES HE IS ALSO GOING TO WOUND CARE FOR HIS LEFT LOWER LEG FOR SEVERAL MONTHS, FOR A WOUND. STATES HE HAS BEEN CHANGING HIS DRESSINGS REGULARLY, HAS NOTICED A BAD ODOR TO IT OVER THE LAST COUPLE DAYS. DENIES ANY FEVERS. ALSO REPORTS HE HAS HAD SOME PAIN IN HIS LEFT LOWER RIBS FOR THE LAST WEEK. DENIES ANY NAUSEA, DENIES ANY VOMITING, DENIES ANY SHORTNESS OF BREATH. DENIES ANY TRAUMA. Review of Systems Review of Systems Constitutional: Denies fever or chills [] Eyes: Denies change in visual acuity, redness, or eye pain [] HENT: Denies nasal congestion or sore throat [] Respiratory: Denies cough or shortness of breath [] Cardiovascular: No additional information not addressed in HPI [] GI: Denies abdominal pain, nausea, vomiting, bloody stools or diarrhea [] : Denies dysuria or hematuria [] Musculoskeletal: Denies back pain or joint pain [] Integument: Denies rash reports chronic left lower leg lesion[] Neurologic: Denies headache, focal weakness or sensory changes reports intermi ttent right arm paresthesias [] Endocrine: Denies polyuria or polydipsia [] All other systems were reviewed and found to be within normal limits, except as documented in this note. Current Medications Current Medications Current Medications Medications (Trade) Dose Ordered Sig/Cameron Start Time Stop Time Status Last Admin Dose Admin Ketorolac Tromethamine (Toradol 15mg Vial) 15 mg 1X ONCE 07/26/19 10:15 07/26/19 10:16 DC 07/26/19 10:47 15 MG Allergies Allergies Allergies Coded Allergies Type Severity Reaction Last Updated Verified tramadol Allergy Intermediate Rash 10/25/18 Yes Physical Exam Physical Exam Constitutional: Well developed, well nourished, no acute distress, non-toxic appearance. [] HENT: Normocephalic, atraumatic,[] Eyes: PERRLA, EOMI, conjunctiva normal, no discharge. [] Neck: Normal range of motion, no tenderness, supple, no stridor. [] Cardiovascular:Heart rate regular rhythm, no murmur [] Lungs & Thorax: Bilateral breath sounds clear to auscultation [] Abdomen: Bowel sounds normal, soft, no tenderness, no masses, no pulsatile masses. Noted umbilical hernia [] Skin: Warm, dry, no erythema, no rash. Left medial lower leg approximately 2 cm wound, dress, noted malodorous, with small amount of purulent discharge noted. Dressing appears soiled, patient reporting he had changed yesterday, however does not appear to have been changed recently.[] Back: No tenderness, no CVA tenderness. [] Extremities: No tenderness, no cyanosis, no clubbing, ROM intact, no edema. Negative Homans sign[] Neurologic: Alert and oriented X 3, normal motor function, normal sensory function, no focal deficits noted. [] Psychologic: Affect normal, judgement normal, mood normal. [] Current Patient Data Vital Signs Vital Signs Date Time Temp Pulse Resp B/P (MAP) Pulse Ox O2 Delivery O2 Flow Rate FiO2 07/26/19 11:00 72 16 126/74 (91) 99 Room Air 07/26/19 08:55 97.8 97.8 Lab Values Laboratory Tests Test 07/26/19 09:05 07/26/19 10:50 White Blood Count 4.2 x10^3/uL (4.0-11.0) Red Blood Count 4.95 x10^6/uL (4.30-5.70) Hemoglobin 13.9 g/dL (13.0-17.5) Hematocrit 41.7 % (39.0-53.0) Mean Corpuscular Volume 84 fL (79-100) Mean Corpuscular Hemoglobin 28 pg (25-35) Mean Corpuscular Hemoglobin Concent 33 g/dL (31-37) Red Cell Distribution Width 14.2 % (11.5-14.5) Platelet Count 137 x10^3/uL (140-400) L Neutrophils (%) (Auto) 52 % (31-73) Lymphocytes (%) (Auto) 36 % (24-48) Monocytes (%) (Auto) 10 % (0-9) H Eosinophils (%) (Auto) 2 % (0-3) Basophils (%) (Auto) 1 % (0-3) Neutrophils # (Auto) 2.2 x10^3/uL (1.8-7.7) Lymphocytes # (Auto) 1.5 x10^3/uL (1.0-4.8) Monocytes # (Auto) 0.4 x10^3/uL (0.0-1.1) Eosinophils # (Auto) 0.1 x10^3/uL (0.0-0.7) Basophils # (Auto) 0.0 x10^3/uL (0.0-0.2) Prothrombin Time 17.4 SEC (11.7-14.0) H Prothrombin Time INR 1.5 (0.8-1.1) H Sodium Level 138 mmol/L (136-145) Potassium Level 4.2 mmol/L (3.5-5.1) Chloride Level 104 mmol/L (98-107) Carbon Dioxide Level 26 mmol/L (21-32) Anion Gap 8 (6-14) Blood Urea Nitrogen 15 mg/dL (8-26) Creatinine 0.8 mg/dL (0.7-1.3) Estimated GFR (Cockcroft-Gault) 124.3 BUN/Creatinine Ratio 19 (6-20) Glucose Level 189 mg/dL (70-99) H Calcium Level 8.5 mg/dL (8.5-10.1) Magnesium Level 1.7 mg/dL (1.8-2.4) L Total Bilirubin 0.3 mg/dL (0.2-1.0) Aspartate Amino Transferase (AST) 19 U/L (15-37) Alanine Aminotransferase (ALT) 34 U/L (16-63) Alkaline Phosphatase 70 U/L (46-116) Troponin I Quantitative < 0.017 ng/mL (0.000-0.055) Total Protein 6.6 g/dL (6.4-8.2) Albumin 3.2 g/dL (3.4-5.0) L Albumin/Globulin Ratio 0.9 (1.0-1.7) L Lipase 140 U/L (73-393) Lactic Acid Level 0.8 mmol/L (0.4-2.0) Laboratory Tests 07/26/19 09:05 Laboratory Tests 07/26/19 09:05 EKG EKG normal sinus rhythm, no ST changes or STEMI. per Dr Plaza [] Radiology/Procedures Radiology/Procedures Comparison: October 25, 2018 Findings: No consolidation or pleural effusion. Normal heart size. No pneumothorax. Prior granulomatous disease within the chest. Impression: 1. No acute cardiopulmonary process. Electronically signed by: Jc Tellez DO (07/26/2019 9:50 AM) [id number] [] Course & Med Decision Making Course & Med Decision Making Pertinent Labs and Imaging studies reviewed. (See chart for details) PERC - 1 - Hx prior DVT - Currently taking Xarelto and has not missed doses.[ Patient reporting he only has 2 doses left of this Xarelto, we will refill it today with a short course. Patient does need to follow-up with his primary care. Patient understands this. Discussed importance of changing dressing on his wound and keeping it clean. Discussed importance to take antibiotic. Patient provided prescription for magnesium due to mild hypomagnesemia today. Patient to follow-up with his primary care provider as needed] Porsha Disclaimer [place] Disclaimer This electronic medical record was generated, in whole or in part, using a voice recognition dictation system. Departure Departure Impression: Primary Impression: Wound of left leg Additional Impression: Hypomagnesemia Disposition: HOME, SELF-CARE Condition: GOOD Referrals: ANALY FUENTES APRN (PCP) Patient Instructions: Hypomagnesemia, Wound Infection, Fxik-lo-Rama Additional Instructions: As we discussed, your leg wound seems to have some infection and it taken. There was no noted infection in your bloodstream today. Make sure you continue to take your Xarelto as prescribed. Your magnesium level was low today as well, this is likely the cause of the tingling in your extremities. Scripts Magnesium Oxide (MAGNESIUM OXIDE) 400 Mg Tablet 1 TAB PO DAILY, #15 TAB 0 Refills Prov: MONTSE VOSS APRN 07/26/19 Cephalexin (CEPHALEXIN) 500 Mg Tablet 500 MG PO BID for 10 Days, #20 TAB Prov: MONTSE VOSS APRN 07/26/19 Rivaroxaban (XARELTO) 15 Mg Tablet 1 TAB PO BID for 21 Days, #42 TAB 0 Refills Prov: MONTSE VOSS APRN 07/26/19 Problem Qualifiers Primary Impression: Wound of left leg Encounter type: subsequent encounter Qualified Codes: S81.802D - Unspecified open wound, left lower leg, subsequent encounter MONTSE VOSS APRN Jul 26, 2019 09:39
[2019-07-26 09:51] LABS: BASO % 1 % (0-3); EOS # 0.1 x10^3/uL (0.0-0.7); EOS % 2 % (0-3); HEMATOCRIT 41.7 % (39.0-53.0); HEMOGLOBIN 13.9 g/dL (13.0-17.5); LYMPH # 1.5 x10^3/uL (1.0-4.8); LYMPH % 36 % (24-48); MEAN CORPUSCULAR HEMOGLOBIN 28 pg (25-35); MEAN CORPUSCULAR HGB CONC 33 g/dL (31-37); MEAN CORPUSCULAR VOLUME 84 fL (79-100); MONO # 0.4 x10^3/uL (0.0-1.1); MONO % 10 % (0-9); NEUT # 2.2 x10^3/uL (1.8-7.7); NEUT % 52 % (31-73); PLATELET COUNT 137 x10^3/uL (140-400); RED BLOOD COUNT 4.95 x10^6/uL (4.30-5.70); RED CELL DISTRIBUTION WIDTH 14.2 % (11.5-14.5); WHITE BLOOD COUNT 4.2 x10^3/uL (4.0-11.0)
--- NOTE | 2019-07-26 09:53 | RAD ---
CHEST AP ONLY History: Left chest wall pain. Comparison: October 25, 2018 Findings: No consolidation or pleural effusion. Normal heart size. No pneumothorax. Prior granulomatous disease within the chest. Impression: 1. No acute cardiopulmonary process. Electronically signed by: Jc Tellez DO (07/26/2019 9:50 AM) [id number]
[2019-07-26 09:58] LABS: CALCIUM 8.5 mg/dL (8.5-10.1); CREATININE 0.8 mg/dL (0.7-1.3); GFR 124.3; POTASSIUM 4.2 mmol/L (3.5-5.1)
[2019-07-26 10:04] LABS: ALBUMIN 3.2 g/dL (3.4-5.0); ALBUMIN/GLOBULIN RATIO 0.9 (1.0-1.7); MAGNESIUM 1.7 mg/dL (1.8-2.4); TOTAL BILIRUBIN 0.3 mg/dL (0.2-1.0); TOTAL PROTEIN 6.6 g/dL (6.4-8.2)
[2019-07-26 10:07] LABS: PROTHROMBIN TIME PATIENT 17.4 SEC (11.7-14.0)
[2019-07-26] MEDS: KETOROLAC 15 MG/ML VIAL. IVP ONE (10:47)
[2019-07-26 11:00] VITALS: BP 126/74
[2019-07-26] MEDS ORDERED: CEPH500T PO (11:19)
[2019-07-26] MEDS ORDERED: RIVA15TA PO (11:19)
[2019-07-26] MEDS ORDERED: MAGN400T5 PO (11:19)
--- NOTE | 2019-07-26 11:31 | EKG ---
[facility] [address] [place] [address] Test Date: 2019-07-26 Test Time: 09:00:21 Pat Name: KEYLA YEE Department: Room: Gender: Business Management Consultant: : 1970 Requested By: MONTSE VOSS Order Number: [id number] Reading MD: Measurements Intervals [place] Rate: 77 P: 22 IN: 198 QRS: -3 QRSD: 72 T: 37 QT: 342 QTc: 389 Interpretive Statements SINUS RHYTHM LEFTWARD AXIS OTHERWISE NORMAL ECG RI6.01 No previous ECG available for comparison
== END 2019-07-26 11:33 | disposition home or self-care (01) ==
LOC: ER 08:44
DX: S81.802A Unspecified open wound, left lower leg, initial encounter (principal); E83.42 Hypomagnesemia; I10 Essential (primary) hypertension; F17.200 Nicotine dependence, unspecified, uncomplicated; G89.29 Other chronic pain; Z86.718 Personal history of other venous thrombosis and embolism; Z88.6 Allergy status to analgesic agent; X58.XXXA Exposure to other specified factors, initial encounter; Y93.89 Activity, other specified; Y92.89 Other specified places as the place of occurrence of the external cause; Y99.8 Other external cause status
CPT/HCPCS: 36415; 71045; 80053; 83605; 83690; 83735; 84484; 85025; 85610; 93005; 96374; 99285; J1885

== ENCOUNTER 2020-03-12 12:31 | Inpatient (IN) | payer BC ==
[~2020-03-12] VITALS: Ht 182.9 cm; Wt 114.8 kg
[~2020-03-12 12:31] MED LIST changes: +CEPH500T PO; +CIPR250T PO; +GABA300C18 PO; +HYDR-2765 PO; +MAGN400T5 PO; +METF500T PO
[2020-03-12] MEDS ORDERED: IV NORMAL SALINE 1000ML BAG 2,340 ML IV SCH (13:30)
[2020-03-12] MEDS ORDERED: DIPH,PERTUSS(ACELL),TET VAC/PF 0.5 ML SYRINGE. VAX IM ONE (14:00)
--- NOTE | 2020-03-12 14:23 | RAD ---
Two-view left tibia-fibula HISTORY: Right medial ankle wound AP lateral views The visualized osseous structures appear normal. There is diffuse soft tissue edema. IMPRESSION: Soft tissue edema. No acute bony abnormality. Electronically signed by: Ricky Keith III, MD (03/12/2020 2:20 PM) [facility]
[2020-03-12] MEDS: fentaNYL PF VIAL 100 MCG/2 ML VIAL IV PRN ×2 (14:31→20:11)
[2020-03-12 14:36] LABS: PROTHROMBIN TIME PATIENT 16.7 SEC (11.7-14.0)
[2020-03-12 14:38] LABS: BASO % 1 % (0-3); EOS # 0.1 x10^3/uL (0.0-0.7); EOS % 2 % (0-3); HEMATOCRIT 39.2 % (39.0-53.0); HEMOGLOBIN 13.1 g/dL (13.0-17.5); LYMPH # 1.7 x10^3/uL (1.0-4.8); LYMPH % 37 % (24-48); MEAN CORPUSCULAR HEMOGLOBIN 28 pg (25-35); MEAN CORPUSCULAR HGB CONC 33 g/dL (31-37); MEAN CORPUSCULAR VOLUME 85 fL (79-100); MONO # 0.4 x10^3/uL (0.0-1.1); MONO % 8 % (0-9); NEUT # 2.4 x10^3/uL (1.8-7.7); NEUT % 52 % (31-73); PLATELET COUNT 152 x10^3/uL (140-400); RED BLOOD COUNT 4.63 x10^6/uL (4.30-5.70); RED CELL DISTRIBUTION WIDTH 14.2 % (11.5-14.5); WHITE BLOOD COUNT 4.6 x10^3/uL (4.0-11.0)
[2020-03-12 14:50] LABS: BILIRUBIN,URINE NEGATIVE (NEG); CLARITY,URINE CLEAR; COLOR,URINE YELLOW; NITRITE,URINE NEGATIVE (NEG); PH,URINE 5.5 (<5.0-8.0); PROTEIN,URINE NEGATIVE (NEG-TRACE); UROBILINOGEN,URINE 0.2 mg/dL (0.2 mg/dL)
[2020-03-12 14:52] LABS: CALCIUM 8.4 mg/dL (8.5-10.1); CREATININE 0.9 mg/dL (0.7-1.3); GFR 108.1; POTASSIUM 4.3 mmol/L (3.5-5.1)
[2020-03-12 14:57] LABS: ALBUMIN 3.3 g/dL (3.4-5.0); TOTAL BILIRUBIN 0.3 mg/dL (0.2-1.0); TOTAL PROTEIN 6.7 g/dL (6.4-8.2)
[2020-03-12 15:36] LABS: BACTERIA,URINE 0 /HPF (0-FEW)
--- NOTE | 2020-03-12 15:52 | PDOC1 ---
History and Physical Date of Admission Date of Admission DATE: 03/12/20 TIME: 15:50 Identification/Chief Complaint Chief Complaint Left leg wound Source Source: Patient History of Present Illness History of Present Illness Mr Dennys Silverio" is a 49 yo M w/ PMHx DVT with IVC filter for over 7 years and likely PE 2018, chronic left medial ankle ulcer who comes into ED c/o increased pain, swelling and odor. He has been evaluated at the wound clinic but has not been seen since February 20, 2020. Notes new dark black tissue in wound and swelling with redness. Denies any fever or sick contacts. By visual, appears to have chronic DVT on venous doppler in ED while I am bedside. Left tib/fib XR with no bony abnormalities, soft tissue swelling noted. The patient wears lower extremity compression hose. He was on Coumadin for years with difficulty keeping a therapeutic level and most recently switched to Xarelto. He says that the Xarelto is difficult to afford. He was seen by [facility] vascular surgery previously, had no iliac thrombus burden, IVF filter in place. Has outpatient plans for left greater saphenous vein ablation. Still drinking 5-7 beers daily and smoking up to a pack a day. Labs WNL, no elevation in WBC.Called for admission for failure of outpatient therapy. Past Medical History Cardiovascular: HTN Pulmonary: No pertinent hx GI: No pertinent hx Heme/Onc: Other Hepatobiliary: No pertinent hx Psych: No pertinent hx Musculoskeletal: low back pain Rheumatologic: No pertinent hx Infectious disease: No pertinent hx Renal/: No pertinent hx Endocrine: No pertinent hx Past Surgical History Past Surgical History: No pertinent history Family History Family History: Other Social History Smoke: 1 pack per day ALCOHOL: heavy Drugs: Marijuana Current Medications Current Medications Current Medications Sodium Chloride 2,340 ml @ 2,340 mls/hr Q1H IV Last administered on 03/12/20at 14:31; Start 03/12/20 at 13:30; Stop 03/12/20 at 14:29; Status DC Fentanyl Citrate (Fentanyl 2ml Vial) 50 mcg PRN Q15MIN PRN IV PAIN GREATER THAN 3/10 Last administered on 03/12/20at 14:31; Start 03/12/20 at 13:30; Stop 03/13/20 at 13:29 Diphtheria/ Tetanus/Acell Pertussis (ADACEL TDap SYRINGE) 0.5 ml ONCE ONCE VAX IM Last administered on 03/12/20at 14:31; Start 03/12/20 at 14:00; Stop 03/12/20 at 14:01; Status DC Active Scripts Active Ciprofloxacin Hcl 250 Mg Tablet 1 Tab PO BID 7 Days Glucophage (Metformin Hcl) 500 Mg Tablet 500 Mg PO BIDWMEALS 30 Days Gabapentin 300 Mg Capsule 300 Mg PO TID 90 Days Hydrocodone-Apap 7.5-325 (Hydrocodone Bit/Acetaminophen) 1 Tab Tablet 1 Tab PO PRN Q6HRS PRN 6 Days Magnesium Oxide 400 Mg Tablet 1 Tab PO DAILY Cephalexin 500 Mg Tablet 500 Mg PO BID 10 Days Thera-M Tablet (Multivits,Ca,Minerals/Iron/Fa) 1 Each Tablet 1 Tab PO DAILY 30 Days Vitamin B-1 (Thiamine Mononitrate) 100 Mg Tablet 100 Mg PO DAILY 30 Days [Folic Acid] 1 MG Tablet 1 Mg PO DAILY 30 Days Tylenol (Acetaminophen) 325 Mg Tablet 650 Mg PO PRN Q4HRS PRN 10 Days Reported Xarelto (Rivaroxaban) 20 Mg Tablet 20 Mg PO DAILY Allergies Allergies: Coded Allergies: tramadol (Verified Allergy, Intermediate, Rash, 10/25/18) ROS General: YES: Fatigue, Malaise; No: Chills, Night Sweats, Appetite, Other PSYCHOLOGICAL ROS: No: Anxiety, Behavioral Disorder, Concentration difficultie, Decreased libido, Depression, Disorientation, Hallucinations, Hostility, Irritablity, Memory difficulties, Mood Swings, Obsessive thoughts, Physical abuse, Sexual abuse, Sleep disturbances, Suicidal ideation, Other Eyes: No Blurry vision, No Decreased vision, No Double vision, No Dry eyes, No Excessive tearing, No Eye Pain, No Itchy Eyes, No Loss of vision, No Photophobia, No Scotomata, No Uses contacts, No Uses glasses, No Other HEENT: No: Heacaches, Visual Changes, Hearing change, Nasal congestion, Nasal discharge, Oral lesions, Sinus pain, Sore Throat, Epistaxis, Sneezing, Snoring, Tinnitus, Vertigo, Vocal changes, Other ALLERGY AND IMMUNOLOGY: No: Hives, Insect Bite Sensitivity, Itchy/Watery Eyes, Nasal Congestion, Post Nasal Drip, Seasonal Allergies, Other Hematological and Lymphatic: YES: Blood Clots; No: Bleeding Problems, Blood Transfusions, Brusing, Night Sweats, Pallor, Swollen Lymph Nodes, Other ENDOCRINE: No: Breast Changes, Galactorrhea, Hair Pattern Changes, Hot Flashes, Malaise/lethargy, Mood Swings, Palpitations, Polydipsia/polyuria, Skin Changes, Temperature Intolerance, Unexpected Weight Changes, Other Breast: No New/Changing Breast Lumps, No Nipple changes, No Nipple discharge, No Other Respiratory: No: Cough, Hemoptysis, Orthopnea, Pleuritic Pain, Shortness of breath, SOB with excertion, Sputum Changes, Stridor, Tachypnea, Wheezing, Other Cardiovascular: No Chest Pain, No Palpitations, No Orthopnea, No Paroxysmal Noc. Dyspnea, No Edema, No Lt Headedness, No Other Gastrointestinal: No Nausea, No Vomiting, No Abdominal Pain, No Diarrhea, No Constipation, No Melena, No Hematochezia, No Other Genitourinary: No Dysuria, No Frequency, No Incontinence, No Hematuria, No Retention, No Discharge, No Urgency, No Pain, No Flank Pain, No Other, No , No , No , No , No , No , No Musculoskeletal: Yes Muscular Weakness; No Gait Disturbance, No Joint Pain, No Joint Stiffness, No Joint Swelling, No Muscle Pain, No Pain In:, No Swelling In:, No Other Neurological: No Behavorial Changes, No Bowel/Bladder ControlChng, No Confusion, No Dizziness, No Gait Disturbance, No Headaches, No Impaired Coord/balance, No Memory Loss, No Numbness/Tingling, No Seizures, No Speech Problems, No Tremors, No Visual Changes, No Weakness, No Other Skin: Yes Rash, Yes Skin Lesion Changes; No Dry Skin, No Eczema, No Hair Changes, No Lumps, No Mole Changes, No Mottling, No Nail Changes, No Pruritus, No Other, No Acne Physical Exam General: Alert, Oriented X3, Cooperative, mild distress HEENT: Atraumatic, PERRLA, EOMI, Mucous membr. moist/pink Lungs: Clear to auscultation, Normal air movement Heart: S1S2, RRR, no thrills, no rubs, no gallops, no murmurs Abdomen: Normal bowel sounds, Soft, No tenderness, No hepatosplenomegaly, No masses Rectal Exam: not examined Extremities: No clubbing, No cyanosis, Other (LLE tender, swollen, warm, decreased pulses) Skin: Other (Ulcer 4x4cm left medial lower leg with eschar tissue, surrounding erythema) Neuro: Normal gait, Normal speech, Strength at 5/5 X4 ext, Normal tone, Cranial nerves 3-12 NL, Reflexes 2+, Other (Decreased sensation in toes) Psych/Mental Status: Mental status NL, Mood NL Vitals Vitals Vital Signs Date Time Temp Pulse Resp B/P (MAP) Pulse Ox O2 Delivery O2 Flow Rate FiO2 03/12/20 14:31 99 Room Air 03/12/20 13:00 97.5 89 17 138/72 (94) 97.5 Labs Labs Laboratory Tests Test 03/12/20 13:35 03/12/20 14:15 03/12/20 14:35 White Blood Count 4.6 x10^3/uL (4.0-11.0) Red Blood Count 4.63 x10^6/uL (4.30-5.70) Hemoglobin 13.1 g/dL (13.0-17.5) Hematocrit 39.2 % (39.0-53.0) Mean Corpuscular Volume 85 fL (79-100) Mean Corpuscular Hemoglobin 28 pg (25-35) Mean Corpuscular Hemoglobin Concent 33 g/dL (31-37) Red Cell Distribution Width 14.2 % (11.5-14.5) Platelet Count 152 x10^3/uL (140-400) Neutrophils (%) (Auto) 52 % (31-73) Lymphocytes (%) (Auto) 37 % (24-48) Monocytes (%) (Auto) 8 % (0-9) Eosinophils (%) (Auto) 2 % (0-3) Basophils (%) (Auto) 1 % (0-3) Neutrophils # (Auto) 2.4 x10^3/uL (1.8-7.7) Lymphocytes # (Auto) 1.7 x10^3/uL (1.0-4.8) Monocytes # (Auto) 0.4 x10^3/uL (0.0-1.1) Eosinophils # (Auto) 0.1 x10^3/uL (0.0-0.7) Basophils # (Auto) 0.0 x10^3/uL (0.0-0.2) Prothrombin Time 16.7 SEC (11.7-14.0) Prothromb Time International Ratio 1.4 (0.8-1.1) Activated Partial Thromboplast Time 25 SEC (24-38) Sodium Level 140 mmol/L (136-145) Potassium Level 4.3 mmol/L (3.5-5.1) Chloride Level 106 mmol/L (98-107) Carbon Dioxide Level 27 mmol/L (21-32) Anion Gap 7 (6-14) Blood Urea Nitrogen 18 mg/dL (8-26) Creatinine 0.9 mg/dL (0.7-1.3) Estimated GFR (Cockcroft-Gault) 108.1 BUN/Creatinine Ratio 20 (6-20) Glucose Level 127 mg/dL (70-99) Lactic Acid Level 1.5 mmol/L (0.4-2.0) Calcium Level 8.4 mg/dL (8.5-10.1) Total Bilirubin 0.3 mg/dL (0.2-1.0) Aspartate Amino Transf (AST/SGOT) 28 U/L (15-37) Alanine Aminotransferase (ALT/SGPT) 51 U/L (16-63) Alkaline Phosphatase 63 U/L (46-116) Total Protein 6.7 g/dL (6.4-8.2) Albumin 3.3 g/dL (3.4-5.0) Albumin/Globulin Ratio 1.0 (1.0-1.7) Urine Collection Type Unknown Urine Color Yellow Urine Clarity Clear Urine pH 5.5 (<5.0-8.0) Urine Specific [place] 1.025 (1.000-1.030) Urine Protein Negative mg/dL (NEG-TRACE) Urine Glucose (UA) Negative mg/dL (NEG) Urine Ketones (Stick) Negative mg/dL (NEG) Urine Blood Moderate (NEG) Urine Nitrite Negative (NEG) Urine Bilirubin Negative (NEG) Urine Urobilinogen Dipstick 0.2 mg/dL (0.2 mg/dL) Urine Leukocyte Esterase Negative (NEG) Urine RBC 11-20 /HPF (0-2) Urine WBC 1-4 /HPF (0-4) Urine Bacteria 0 /HPF (0-FEW) Urine Mucus Mod /LPF Laboratory Tests Test 03/12/20 13:35 03/12/20 14:15 03/12/20 14:35 White Blood Count 4.6 x10^3/uL (4.0-11.0) Red Blood Count 4.63 x10^6/uL (4.30-5.70) Hemoglobin 13.1 g/dL (13.0-17.5) Hematocrit 39.2 % (39.0-53.0) Mean Corpuscular Volume 85 fL (79-100) Mean Corpuscular Hemoglobin 28 pg (25-35) Mean Corpuscular Hemoglobin Concent 33 g/dL (31-37) Red Cell Distribution Width 14.2 % (11.5-14.5) Platelet Count 152 x10^3/uL (140-400) Neutrophils (%) (Auto) 52 % (31-73) Lymphocytes (%) (Auto) 37 % (24-48) Monocytes (%) (Auto) 8 % (0-9) Eosinophils (%) (Auto) 2 % (0-3) Basophils (%) (Auto) 1 % (0-3) Neutrophils # (Auto) 2.4 x10^3/uL (1.8-7.7) Lymphocytes # (Auto) 1.7 x10^3/uL (1.0-4.8) Monocytes # (Auto) 0.4 x10^3/uL (0.0-1.1) Eosinophils # (Auto) 0.1 x10^3/uL (0.0-0.7) Basophils # (Auto) 0.0 x10^3/uL (0.0-0.2) Prothrombin Time 16.7 SEC (11.7-14.0) Prothromb Time International Ratio 1.4 (0.8-1.1) Activated Partial Thromboplast Time 25 SEC (24-38) Sodium Level 140 mmol/L (136-145) Potassium Level 4.3 mmol/L (3.5-5.1) Chloride Level 106 mmol/L (98-107) Carbon Dioxide Level 27 mmol/L (21-32) Anion Gap 7 (6-14) Blood Urea Nitrogen 18 mg/dL (8-26) Creatinine 0.9 mg/dL (0.7-1.3) Estimated GFR (Cockcroft-Gault) 108.1 BUN/Creatinine Ratio 20 (6-20) Glucose Level 127 mg/dL (70-99) Lactic Acid Level 1.5 mmol/L (0.4-2.0) Calcium Level 8.4 mg/dL (8.5-10.1) Total Bilirubin 0.3 mg/dL (0.2-1.0) Aspartate Amino Transf (AST/SGOT) 28 U/L (15-37) Alanine Aminotransferase (ALT/SGPT) 51 U/L (16-63) Alkaline Phosphatase 63 U/L (46-116) Total Protein 6.7 g/dL (6.4-8.2) Albumin 3.3 g/dL (3.4-5.0) Albumin/Globulin Ratio 1.0 (1.0-1.7) Urine Collection Type Unknown Urine Color Yellow Urine Clarity Clear Urine pH 5.5 (<5.0-8.0) Urine Specific [place] 1.025 (1.000-1.030) Urine Protein Negative mg/dL (NEG-TRACE) Urine Glucose (UA) Negative mg/dL (NEG) Urine Ketones (Stick) Negative mg/dL (NEG) Urine Blood Moderate (NEG) Urine Nitrite Negative (NEG) Urine Bilirubin Negative (NEG) Urine Urobilinogen Dipstick 0.2 mg/dL (0.2 mg/dL) Urine Leukocyte Esterase Negative (NEG) Urine RBC 11-20 /HPF (0-2) Urine WBC 1-4 /HPF (0-4) Urine Bacteria 0 /HPF (0-FEW) Urine Mucus Mod /LPF Images Images Left tib/fib XR: The visualized osseous structures appear normal. There is diffuse soft tissue edema. IMPRESSION: Soft tissue edema. No acute bony abnormality. VTE Prophylaxis Ordered VTE Prophylaxis Devices: Yes VTE Pharmacological Prophylaxi: Yes Assessment/Plan Assessment/Plan A/P: Left ankle cellulitis with ulcer - will ask wound care to see. Worsened despite outpatient treatment, will elevate leg, initiate doxycycline. Consult wound care Left leg ulcer - chronic with poor healing. wound care to see Chronic LLE DVT - s/p IVC filter. Needs lifelong anticoagulation. Chronic lower back pain - offered muscle relaxants. He is asking for hydrocodone 7.5mg ETOH use - counseled on cutting back Smoker - counseled on cessation, particularly with h/o blood clots Prediabetes - A1c 6 last year. Should be on metformin outpatient FEN - ADA diet PPX - xarelto FULL CODE Dispo - inpatient Justifications for Admission Other Justification RIFFEL,CHRISTOPHER S MD Mar 12, 2020 15:52
[2020-03-12] MEDS ORDERED: ACETAMINOPHEN 325 MG TABLET. PO PRN (16:00)
--- NOTE | 2020-03-12 16:23 | RAD ---
Exam: Left lower extremity venous duplex study INDICATION: Leg swelling TECHNIQUE: Using a combination of real-time ultrasound imaging and color-flow and pulse Doppler imaging techniques along with graded compression and augmentation, duplex evaluation of the deep venous systems of leftlower extremity was performed. Multiple images were obtained. Findings: Nonocclusive thrombus in the proximal femoral vein extending down to the popliteal vein. Otherwise, There is no sonographic evidence for deep venous thrombosis involving the visualized deep venous structures of the left lower extremity. IMPRESSION: Nonocclusive thrombus in the proximal femoral vein extending down to the popliteal vein. Electronically signed by: Cyrus Rodriguez MD (03/12/2020 4:20 PM) GRACIELA
--- NOTE | 2020-03-12 16:26 | PHYS DOC ---
Past Medical History Past Medical History: DVT, Hypertension, Other Additional Past Medical Histor: CHRONIC BACK PAIN,UMBILICAL HERNIA, LLE Wound Past Surgical History: Other Additional Past Surgical Histo: L KNEE Smoking Status: Current Every Day Smoker Alcohol Use: Heavy Drug Use: None General Adult EDM: Chief Complaint: LOWER EXT PAIN HPI: HPI: Patient is a 50 year old male patient with history of DVT, hypertension, who presents to the ED today complaining of a wound on the left medial lower extremity that he has had for years. Patient states he has been following up with the wound clinic but has not been seen since February 20, 2020. He states the last couple days he has noted some black tissue on the region and is afraid he has gangrene. Denies any fever. Review of Systems: Review of Systems: Constitutional: Denies fever or chills. [] Eyes: Denies change in visual acuity. [] HENT: Denies nasal congestion or sore throat. [] Respiratory: Denies cough or shortness of breath. [] Cardiovascular: Denies chest pain or edema. [] GI: Denies abdominal pain, nausea, vomiting, bloody stools or diarrhea. [] : Denies dysuria. [] Musculoskeletal: Denies back pain or joint pain. [] Integument: Reports wound to the left lower extremity Neurologic: Denies headache, focal weakness or sensory changes. [] Psychiatric: Denies depression or anxiety. [] Heart Score: Risk Factors: Risk Factors: DM, Current or recent (<one month) smoker, HTN, HLP, family history of CAD, obesity. Risk Scores: Score 0 - 3: 2.5% MACE over next 6 weeks - Discharge Home Score 4 - 6: 20.3% MACE over next 6 weeks - Admit for Clinical Observation Score 7 - 10: 72.7% MACE over next 6 weeks - Early Invasive Strategies Current Medications: Current Medications Medications (Trade) Dose Ordered Sig/Cameron Start Time Stop Time Status Last Admin Dose Admin Acetaminophen (Tylenol) 650 mg PRN Q4HRS PRN 03/12/20 16:00 Acetaminophen/ Hydrocodone Bitart (Lortab 7.5/325) 1 tab PRN Q6HRS PRN 03/12/20 16:00 Diphtheria/ Tetanus/Acell Pertussis (ADACEL TDap SYRINGE) 0.5 ml ONCE ONCE 03/12/20 14:00 03/12/20 14:01 DC 03/12/20 14:31 0.5 ML Fentanyl Citrate (Fentanyl 2ml Vial) 50 mcg PRN Q15MIN PRN 03/12/20 13:30 03/13/20 13:29 03/12/20 14:31 50 MCG Folic Acid (Folic Acid) 1 mg DAILY 03/13/20 09:00 Gabapentin (Neurontin) 300 mg TID 03/12/20 21:00 Multivitamins (Thera M Plus) 1 tab DAILY 03/13/20 09:00 Rivaroxaban (Xarelto) 20 mg DAILYWSUP 03/12/20 17:00 UNV Sodium Chloride 2,340 ml @ 2,340 mls/hr Q1H 03/12/20 13:30 03/12/20 14:29 DC 03/12/20 14:31 2,340 MLS/HR Thiamine Mononitrate (Vitamin B-1) 100 mg DAILY 03/13/20 09:00 Allergies: Allergies: Allergies Coded Allergies Type Severity Reaction Last Updated Verified tramadol Allergy Intermediate Rash 10/25/18 Yes Physical Exam: PE: Constitutional: Well developed, well nourished, no acute distress, non-toxic appearance. [] HENT: Normocephalic, atraumatic, bilateral external ears normal, oropharynx moist, no oral exudates, nose normal. [] Eyes: PERRLA, EOMI, conjunctiva normal, no discharge. [] Neck: Normal range of motion, no tenderness, supple, no stridor. [] Cardiovascular:Heart rate regular rhythm, no murmur [] Lungs & Thorax: Bilateral breath sounds clear to auscultation [] Abdomen: Bowel sounds normal, soft, no tenderness, no masses, no pulsatile masses. [] Skin: Dry scaly skin to bilateral lower extremities. Left medial lower extremity with an open wound roughly 3 x 2 cm with eschar tissue scattered in the wound. No drainage. No cellulitis. +1 left pedal pulse. Back: No tenderness, no CVA tenderness. [] Extremities: No tenderness, no cyanosis, no clubbing, ROM intact, no edema. [] Neurologic: Alert and oriented X 3, normal motor function, normal sensory function, no focal deficits noted. [] Psychologic: Affect normal, judgement normal, mood normal. [] Current Patient Data: Labs: Laboratory Tests Test 03/12/20 13:35 03/12/20 14:15 03/12/20 14:35 White Blood Count 4.6 x10^3/uL (4.0-11.0) Red Blood Count 4.63 x10^6/uL (4.30-5.70) Hemoglobin 13.1 g/dL (13.0-17.5) Hematocrit 39.2 % (39.0-53.0) Mean Corpuscular Volume 85 fL (79-100) Mean Corpuscular Hemoglobin 28 pg (25-35) Mean Corpuscular Hemoglobin Concent 33 g/dL (31-37) Red Cell Distribution Width 14.2 % (11.5-14.5) Platelet Count 152 x10^3/uL (140-400) Neutrophils (%) (Auto) 52 % (31-73) Lymphocytes (%) (Auto) 37 % (24-48) Monocytes (%) (Auto) 8 % (0-9) Eosinophils (%) (Auto) 2 % (0-3) Basophils (%) (Auto) 1 % (0-3) Neutrophils # (Auto) 2.4 x10^3/uL (1.8-7.7) Lymphocytes # (Auto) 1.7 x10^3/uL (1.0-4.8) Monocytes # (Auto) 0.4 x10^3/uL (0.0-1.1) Eosinophils # (Auto) 0.1 x10^3/uL (0.0-0.7) Basophils # (Auto) 0.0 x10^3/uL (0.0-0.2) Prothrombin Time 16.7 SEC (11.7-14.0) H Prothrombin Time INR 1.4 (0.8-1.1) H Activated Partial Thromboplast Time 25 SEC (24-38) Sodium Level 140 mmol/L (136-145) Potassium Level 4.3 mmol/L (3.5-5.1) Chloride Level 106 mmol/L (98-107) Carbon Dioxide Level 27 mmol/L (21-32) Anion Gap 7 (6-14) Blood Urea Nitrogen 18 mg/dL (8-26) Creatinine 0.9 mg/dL (0.7-1.3) Estimated GFR (Cockcroft-Gault) 108.1 BUN/Creatinine Ratio 20 (6-20) Glucose Level 127 mg/dL (70-99) H Lactic Acid Level 1.5 mmol/L (0.4-2.0) Calcium Level 8.4 mg/dL (8.5-10.1) L Total Bilirubin 0.3 mg/dL (0.2-1.0) Aspartate Amino Transferase (AST) 28 U/L (15-37) Alanine Aminotransferase (ALT) 51 U/L (16-63) Alkaline Phosphatase 63 U/L (46-116) Total Protein 6.7 g/dL (6.4-8.2) Albumin 3.3 g/dL (3.4-5.0) L Albumin/Globulin Ratio 1.0 (1.0-1.7) Procalcitonin < 0.10 ng/mL (0.00-0.10) Urine Collection Type Unknown Urine Color Yellow Urine Clarity Clear Urine pH 5.5 (<5.0-8.0) Urine Specific [place] 1.025 (1.000-1.030) Urine Protein Negative mg/dL (NEG-TRACE) Urine Glucose (UA) Negative mg/dL (NEG) Urine Ketones (Stick) Negative mg/dL (NEG) Urine Blood Moderate (NEG) Urine Nitrite Negative (NEG) Urine Bilirubin Negative (NEG) Urine Urobilinogen Dipstick 0.2 mg/dL (0.2 mg/dL) Urine Leukocyte Esterase Negative (NEG) Urine RBC 11-20 /HPF (0-2) Urine WBC 1-4 /HPF (0-4) Urine Bacteria 0 /HPF (0-FEW) Urine Mucus Mod /LPF Laboratory Tests 03/12/20 13:35 Laboratory Tests 03/12/20 14:15 Vital Signs: Vital Signs Date Time Temp Pulse Resp B/P (MAP) Pulse Ox O2 Delivery O2 Flow Rate FiO2 03/12/20 14:31 99 Room Air 03/12/20 13:00 97.5 89 17 138/72 (94) 97.5 EKG: EKG: [] Radiology/Procedures: Radiology/Procedures: [] Course & Med Decision Making: Course & Med Decision Making Pertinent Labs and Imaging studies reviewed. (See chart for details) This is a 50-year-old male patient who presents to the ED today with a stasis ulcer wound on the left lower extremity that he has had for months but missed his appointment at the wound clinic on February 19. The wound right now has eschar tissue. CBC with a normal WBC. CMP with no acute findings. Spoke with the wound clinic, the stated this patient has not been seen since February 19. Venous doppler and arterial doppler pending. Spoke with Dr. Stuart who accepted patient for admission Porsha Disclaimer: Porsha Disclaimer: This electronic medical record was generated, in whole or in part, using a voice recognition dictation system. Departure Departure Impression: Primary Impression: Wound of left leg Qualified Codes: S81.802A - Unspecified open wound, left lower leg, initial encounter Disposition: ADMITTED INPT THIS HOSP Condition: STABLE Referrals: Adithya MATTHEWS MD (PCP) JESSICA GONZALES APRN Mar 12, 2020 16:26
--- NOTE | 2020-03-12 16:29 | RAD ---
Exam: Ultrasound left lower extremity arterial duplex Indication: Left lower extremity wound, peripheral artery disease Technique: Real-time grayscale and color Doppler images of the left lower extremity were obtained by the department records management coordinator. Comparisons: None FINDINGS: Peak systolic velocities as follows: Common femoral artery: 144 DFA: 83 Proximal SFA: 136 Mid SFA: 150 Distal SFA: 87 Popliteal: 85 SOUND EFFECTS TECHNICIAN proximal: 45 SOUND EFFECTS TECHNICIAN: 123 Peroneal: 91 [place]: 41 DPA: 112 Monophasic waveforms at the dorsal pedal artery with triphasic and biphasic waveforms throughout the remainder of the left lower extremity. IMPRESSION: Patent left lower extremity arterial vasculature, with monophasic waveforms at the DTPA correlating to proximal stenosis. Electronically signed by: Cyrus Rodriguez MD (03/12/2020 4:25 PM) GRACIELA
[2020-03-12] MEDS ORDERED: ONDANSETRON PF 4 MG/2 ML VIAL. IV PRN (16:30)
[2020-03-12] MEDS ORDERED: RIVAROXABAN 10 MG TABLET. PO SCH (17:00)
[2020-03-12] MEDS: HYDROcodone/APAP 7.5/325MG 1 TAB TABLET PO PRN (20:10)
[2020-03-12] MEDS ORDERED: DEXTROSE 50% 25 GM / 50ML DISP.SYRIN. IV PRN (20:30)
[2020-03-12] MEDS: INSULIN LISPRO 300 UNITS/3 ML VIAL. SQ SCH (21:00)
[2020-03-12] MEDS: DOXYCYCLINE HYCLATE 100 MG in IV DEXTROSE 5% 100ML 100 ML IV SCH (22:20)
[2020-03-12] MEDS: GABAPENTIN 300 MG CAPSULE. PO SCH (22:21)
[2020-03-12 23:00] VITALS: BP 136/72
[2020-03-13 03:00] VITALS: BP 148/74
[2020-03-13 07:00] VITALS: BP 158/90
[2020-03-13 07:28] LABS: BASO % 1 % (0-3); EOS # 0.1 x10^3/uL (0.0-0.7); EOS % 2 % (0-3); HEMOGLOBIN 13.1 g/dL (13.0-17.5); LYMPH # 1.6 x10^3/uL (1.0-4.8); LYMPH % 37 % (24-48); MEAN CORPUSCULAR HEMOGLOBIN 28 pg (25-35); MEAN CORPUSCULAR HGB CONC 33 g/dL (31-37); MEAN CORPUSCULAR VOLUME 86 fL (79-100); MONO # 0.5 x10^3/uL (0.0-1.1); MONO % 11 % (0-9); NEUT # 2.2 x10^3/uL (1.8-7.7); NEUT % 49 % (31-73); PLATELET COUNT 139 x10^3/uL (140-400); RED BLOOD COUNT 4.65 x10^6/uL (4.30-5.70); RED CELL DISTRIBUTION WIDTH 14.1 % (11.5-14.5); WHITE BLOOD COUNT 4.4 x10^3/uL (4.0-11.0)
[2020-03-13] MEDS: INSULIN LISPRO 300 UNITS/3 ML VIAL. SQ SCH ×3 (07:30→16:30)
[2020-03-13 07:53] LABS: ALBUMIN/GLOBULIN RATIO 0.9 (1.0-1.7); CALCIUM 8.1 mg/dL (8.5-10.1); CREATININE 0.9 mg/dL (0.7-1.3); GFR 108.1; POTASSIUM 3.9 mmol/L (3.5-5.1); TOTAL BILIRUBIN 0.4 mg/dL (0.2-1.0); TOTAL PROTEIN 6.3 g/dL (6.4-8.2)
--- NOTE | 2020-03-13 08:12 | PDOC ---
[employer] PROGRESS NOTE Date of Service DOS: DATE: 03/13/20 TIME: 08:11 Chief Complaint Chief Complaint A/P: Left ankle cellulitis with ulcer - will ask wound care to see. Worsened despite outpatient treatment, will elevate leg, initiated on doxycycline. Consult wound care Left leg ulcer - chronic with poor healing. wound care to see. 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 Needs lifelong anticoagulation. Chronic lower back pain - offered muscle relaxants. He is asking for hydrocodone 7.5mg ETOH use - counseled on cutting back Smoker - counseled on cessation, particularly with h/o blood clots Prediabetes - A1c 6 last year. Should be on metformin outpatient FEN - ADA diet PPX - xarelto FULL CODE Dispo - inpatient History of Present Illness History of Present Illness Mr Dennys Silverio" is a 49 yo M w/ PMHx DVT with IVC filter for over 7 years and likely PE 2018, chronic left medial ankle ulcer who comes into ED c/o increased pain, swelling and odor. He has been evaluated at the wound clinic but has not been seen since February 20, 2020. Notes new dark black tissue in wound and swelling with redness. Denies any fever or sick contacts. By visual, appears to have chronic DVT on venous doppler in ED while I am bedside. Left tib/fib XR with no bony abnormalities, soft tissue swelling noted. The patient wears lower extremity compression hose. He was on Coumadin for years with difficulty keeping a therapeutic level and most recently switched to Xarelto. He says that the Xarelto is difficult to afford. He was seen by [facility] vascular surgery previously, had no iliac thrombus burden, IVF filter in place. Has outpatient plans for left greater saphenous vein ablation. Still drinking 5-7 beers daily and smoking up to a pack a day. Labs WNL, no elevation in WBC.Called for admission for failure of outpatient therapy. Afebrile. Wound culture after cleaning wound shows GBS and proteus mirabilis. He is walking the ED halls asking to go home. Advised change to augmentin and to await wound care evaluation. Vitals/I&O Vitals/I&O: Vital Signs Date Time Temp Pulse Resp B/P (MAP) Pulse Ox O2 Delivery O2 Flow Rate FiO2 03/13/20 03:00 98.5 72 18 148/74 (98) 97 Room Air 98.5 I & O 03/12/20 03/12/20 03/13/20 15:00 23:00 07:00 Intake Total 120 ml Output Total 800 ml 800 ml Balance -800 ml -680 ml Physical Exam General: Alert, Oriented X3, Cooperative, mild distress Lungs: Clear Abdomen: Normal bowel sounds, Soft, No tenderness, No hepatosplenomegaly, No masses Extremities: No clubbing, No cyanosis, Other (LLE tender, swollen, warm, decreased pulses) Skin: Other (Ulcer 4x4cm left medial lower leg with eschar tissue, surrounding erythema) Labs Labs: Laboratory Tests Test 03/12/20 13:35 03/12/20 14:15 03/12/20 14:35 03/12/20 21:52 White Blood Count 4.6 x10^3/uL (4.0-11.0) Red Blood Count 4.63 x10^6/uL (4.30-5.70) Hemoglobin 13.1 g/dL (13.0-17.5) Hematocrit 39.2 % (39.0-53.0) Mean Corpuscular Volume 85 fL (79-100) Mean Corpuscular Hemoglobin 28 pg (25-35) Mean Corpuscular Hemoglobin Concent 33 g/dL (31-37) Red Cell Distribution Width 14.2 % (11.5-14.5) Platelet Count 152 x10^3/uL (140-400) Neutrophils (%) (Auto) 52 % (31-73) Lymphocytes (%) (Auto) 37 % (24-48) Monocytes (%) (Auto) 8 % (0-9) Eosinophils (%) (Auto) 2 % (0-3) Basophils (%) (Auto) 1 % (0-3) Neutrophils # (Auto) 2.4 x10^3/uL (1.8-7.7) Lymphocytes # (Auto) 1.7 x10^3/uL (1.0-4.8) Monocytes # (Auto) 0.4 x10^3/uL (0.0-1.1) Eosinophils # (Auto) 0.1 x10^3/uL (0.0-0.7) Basophils # (Auto) 0.0 x10^3/uL (0.0-0.2) Prothrombin Time 16.7 SEC (11.7-14.0) Prothromb Time International Ratio 1.4 (0.8-1.1) Activated Partial Thromboplast Time 25 SEC (24-38) Sodium Level 140 mmol/L (136-145) Potassium Level 4.3 mmol/L (3.5-5.1) Chloride Level 106 mmol/L (98-107) Carbon Dioxide Level 27 mmol/L (21-32) Anion Gap 7 (6-14) Blood Urea Nitrogen 18 mg/dL (8-26) Creatinine 0.9 mg/dL (0.7-1.3) Estimated GFR (Cockcroft-Gault) 108.1 BUN/Creatinine Ratio 20 (6-20) Glucose Level 127 mg/dL (70-99) Lactic Acid Level 1.5 mmol/L (0.4-2.0) Calcium Level 8.4 mg/dL (8.5-10.1) Total Bilirubin 0.3 mg/dL (0.2-1.0) Aspartate Amino Transf (AST/SGOT) 28 U/L (15-37) Alanine Aminotransferase (ALT/SGPT) 51 U/L (16-63) Alkaline Phosphatase 63 U/L (46-116) Total Protein 6.7 g/dL (6.4-8.2) Albumin 3.3 g/dL (3.4-5.0) Albumin/Globulin Ratio 1.0 (1.0-1.7) Procalcitonin < 0.10 ng/mL (0.00-0.10) Urine Collection Type Unknown Urine Color Yellow Urine Clarity Clear Urine pH 5.5 (<5.0-8.0) Urine Specific [place] 1.025 (1.000-1.030) Urine Protein Negative mg/dL (NEG-TRACE) Urine Glucose (UA) Negative mg/dL (NEG) Urine Ketones (Stick) Negative mg/dL (NEG) Urine Blood Moderate (NEG) Urine Nitrite Negative (NEG) Urine Bilirubin Negative (NEG) Urine Urobilinogen Dipstick 0.2 mg/dL (0.2 mg/dL) Urine Leukocyte Esterase Negative (NEG) Urine RBC 11-20 /HPF (0-2) Urine WBC 1-4 /HPF (0-4) Urine Bacteria 0 /HPF (0-FEW) Urine Mucus Mod /LPF Glucose (Fingerstick) 127 mg/dL (70-99) Test 03/13/20 06:50 White Blood Count 4.4 x10^3/uL (4.0-11.0) Red Blood Count 4.65 x10^6/uL (4.30-5.70) Hemoglobin 13.1 g/dL (13.0-17.5) Hematocrit 40.0 % (39.0-53.0) Mean Corpuscular Volume 86 fL (79-100) Mean Corpuscular Hemoglobin 28 pg (25-35) Mean Corpuscular Hemoglobin Concent 33 g/dL (31-37) Red Cell Distribution Width 14.1 % (11.5-14.5) Platelet Count 139 x10^3/uL (140-400) Neutrophils (%) (Auto) 49 % (31-73) Lymphocytes (%) (Auto) 37 % (24-48) Monocytes (%) (Auto) 11 % (0-9) Eosinophils (%) (Auto) 2 % (0-3) Basophils (%) (Auto) 1 % (0-3) Neutrophils # (Auto) 2.2 x10^3/uL (1.8-7.7) Lymphocytes # (Auto) 1.6 x10^3/uL (1.0-4.8) Monocytes # (Auto) 0.5 x10^3/uL (0.0-1.1) Eosinophils # (Auto) 0.1 x10^3/uL (0.0-0.7) Basophils # (Auto) 0.0 x10^3/uL (0.0-0.2) Sodium Level 138 mmol/L (136-145) Potassium Level 3.9 mmol/L (3.5-5.1) Chloride Level 104 mmol/L (98-107) Carbon Dioxide Level 26 mmol/L (21-32) Anion Gap 8 (6-14) Blood Urea Nitrogen 12 mg/dL (8-26) Creatinine 0.9 mg/dL (0.7-1.3) Estimated GFR (Cockcroft-Gault) 108.1 BUN/Creatinine Ratio 13 (6-20) Glucose Level 152 mg/dL (70-99) Calcium Level 8.1 mg/dL (8.5-10.1) Total Bilirubin 0.4 mg/dL (0.2-1.0) Aspartate Amino Transf (AST/SGOT) 24 U/L (15-37) Alanine Aminotransferase (ALT/SGPT) 41 U/L (16-63) Alkaline Phosphatase 65 U/L (46-116) Total Protein 6.3 g/dL (6.4-8.2) Albumin 3.0 g/dL (3.4-5.0) Albumin/Globulin Ratio 0.9 (1.0-1.7) Assessment and Plan Assessmemt and Plan Problems Medical Problems: (1) Wound of left leg Status: Acute Comment Review of Relevant I have reviewed the following items eliana (where applicable) has been applied. Medications: Current Medications Medications (Trade) Dose Ordered Sig/Cameron Route PRN Reason Start Time Stop Time Status Last Admin Dose Admin Sodium Chloride 2,340 ml @ 2,340 mls/hr Q1H IV 03/12/20 13:30 03/12/20 14:29 DC 03/12/20 14:31 Fentanyl Citrate (Fentanyl 2ml Vial) 50 mcg PRN Q15MIN PRN IV PAIN GREATER THAN 3/10 03/12/20 13:30 03/13/20 13:29 03/12/20 20:11 Diphtheria/ Tetanus/Acell Pertussis (ADACEL TDap SYRINGE) 0.5 ml ONCE ONCE VAX IM 03/12/20 14:00 03/12/20 14:01 DC 03/12/20 14:31 Gabapentin (Neurontin) 300 mg TID PO 03/12/20 21:00 03/12/20 22:21 Acetaminophen/ Hydrocodone Bitart (Lortab 7.5/325) 1 tab PRN Q6HRS PRN PO MODERATE-SEVERE PAIN 03/12/20 16:00 03/12/20 20:10 Doxycycline Hyclate 100 mg/ Dextrose 100 ml @ 50 mls/hr Q12HR IV 03/12/20 21:00 03/12/20 22:20 Justifications for Admission Other Justification ROZINA CEBALLOS MD Mar 13, 2020 08:12
[2020-03-13] MEDS: HYDROcodone/APAP 7.5/325MG 1 TAB TABLET PO PRN ×2 (08:31→14:20)
[2020-03-13] MEDS ORDERED: RIVAROXABAN 10 MG TABLET. PO SCH (09:00)
[2020-03-13] MEDS ORDERED: MULTIVITAMIN with MINERAL TABLET. PO SCH (09:00)
[2020-03-13] MEDS ORDERED: FOLIC ACID 1 MG TABLET. PO SCH (09:00)
[2020-03-13] MEDS ORDERED: THIAMINE 100 MG TABLET. PO SCH (09:00)
[2020-03-13] MEDS: GABAPENTIN 300 MG CAPSULE. PO SCH ×2 (10:43→13:13)
[2020-03-13 11:00] VITALS: BP 145/69
--- NOTE | 2020-03-13 11:34 | NUR ---
Pt transferred from ED to room 424 by wheelchair. Report given to RIMA Gonzales. Belongings sent with pt at time of transfer.
[2020-03-13 11:40] VITALS: BP 136/77
--- NOTE | 2020-03-13 11:43 | NUR ---
Received report and patient transfer from ED hold, will continue to monitor.
[2020-03-13] MEDS: DOXYCYCLINE HYCLATE 100 MG in IV DEXTROSE 5% 100ML 100 ML IV SCH (11:54)
[2020-03-13 15:00] VITALS: BP 112/76
[2020-03-13] MEDS ORDERED: ANTI-COAG MONITOR BY PHARMACY. MC PRN (15:45)
--- NOTE | 2020-03-13 16:25 | NUR ---
Wound/Ostomy Care Wound Type/Assessment: Patient seen per wound care consult. See wound assessment. Patient is well known to us from the wound clinic. Patient is non compliant and rarely attends his scheduled appointments. Wound is cleansed and assessed. Treatment Recommendations/Plan: Recommendations for Iodoflex to wound bed (removing both sides of the white mesh) form Iodoflex to fit into wound, then cover with ABD pad, and kerlix. Change every 2-3 days. Education provided: Patient educated on dressing changes. Offloading surface/device: N/A Recommended Referrals/Tests: Discharge Recommendations for dressings: Patient stated he would like to once again make an appointment and follow up in the wound clinic. Patient informed to call the clinic and schedule an appointment after discharge. Patient encouraged to keep scheduled appointment. Dressing change instructions left in room, as well as extra Iodoflex for next dressing change. Bed lowered and call light in reach. Will follow patient regarding wound care. Spoke with RN regarding wound care.
[2020-03-13] MEDS ORDERED: AMOXICILLIN/K CLAV 875/125MG TABLET. PO SCH (16:30)
[2020-03-13] MEDS ORDERED: HYDR-2765 PO (16:49)
[2020-03-13] MEDS ORDERED: AMOX1TAB11 PO (16:49)
--- NOTE | 2020-03-13 16:54 | PDOC3 ---
Discharge Summary Visit Information Date of Admission: Mar 12, 2020 Date of Discharge: Mar 13, 2020 Admitting Diagnosis: Left leg cellulitis and ulcer Final Diagnosis Problems Medical Problems: (1) Wound of left leg Status: Acute Brief Hospital Course Allergies Allergies Coded Allergies Type Severity Reaction Last Updated Verified tramadol Allergy Intermediate Rash 10/25/18 Yes Vital Signs Vital Signs Date Time Temp Pulse Resp B/P (MAP) Pulse Ox O2 Delivery O2 Flow Rate FiO2 03/13/20 15:00 98.1 78 18 112/76 (88) 100 Room Air 98.1 Lab Results Laboratory Tests Test 03/12/20 13:35 03/12/20 14:15 03/12/20 14:35 03/12/20 21:52 White Blood Count 4.6 x10^3/uL (4.0-11.0) Red Blood Count 4.63 x10^6/uL (4.30-5.70) Hemoglobin 13.1 g/dL (13.0-17.5) Hematocrit 39.2 % (39.0-53.0) Mean Corpuscular Volume 85 fL (79-100) Mean Corpuscular Hemoglobin 28 pg (25-35) Mean Corpuscular Hemoglobin Concent 33 g/dL (31-37) Red Cell Distribution Width 14.2 % (11.5-14.5) Platelet Count 152 x10^3/uL (140-400) Neutrophils (%) (Auto) 52 % (31-73) Lymphocytes (%) (Auto) 37 % (24-48) Monocytes (%) (Auto) 8 % (0-9) Eosinophils (%) (Auto) 2 % (0-3) Basophils (%) (Auto) 1 % (0-3) Neutrophils # (Auto) 2.4 x10^3/uL (1.8-7.7) Lymphocytes # (Auto) 1.7 x10^3/uL (1.0-4.8) Monocytes # (Auto) 0.4 x10^3/uL (0.0-1.1) Eosinophils # (Auto) 0.1 x10^3/uL (0.0-0.7) Basophils # (Auto) 0.0 x10^3/uL (0.0-0.2) Prothrombin Time 16.7 SEC (11.7-14.0) Prothromb Time International Ratio 1.4 (0.8-1.1) Activated Partial Thromboplast Time 25 SEC (24-38) Sodium Level 140 mmol/L (136-145) Potassium Level 4.3 mmol/L (3.5-5.1) Chloride Level 106 mmol/L (98-107) Carbon Dioxide Level 27 mmol/L (21-32) Anion Gap 7 (6-14) Blood Urea Nitrogen 18 mg/dL (8-26) Creatinine 0.9 mg/dL (0.7-1.3) Estimated GFR (Cockcroft-Gault) 108.1 BUN/Creatinine Ratio 20 (6-20) Glucose Level 127 mg/dL (70-99) Lactic Acid Level 1.5 mmol/L (0.4-2.0) Calcium Level 8.4 mg/dL (8.5-10.1) Total Bilirubin 0.3 mg/dL (0.2-1.0) Aspartate Amino Transf (AST/SGOT) 28 U/L (15-37) Alanine Aminotransferase (ALT/SGPT) 51 U/L (16-63) Alkaline Phosphatase 63 U/L (46-116) Total Protein 6.7 g/dL (6.4-8.2) Albumin 3.3 g/dL (3.4-5.0) Albumin/Globulin Ratio 1.0 (1.0-1.7) Procalcitonin < 0.10 ng/mL (0.00-0.10) Urine Collection Type Unknown Urine Color Yellow Urine Clarity Clear Urine pH 5.5 (<5.0-8.0) Urine Specific [place] 1.025 (1.000-1.030) Urine Protein Negative mg/dL (NEG-TRACE) Urine Glucose (UA) Negative mg/dL (NEG) Urine Ketones (Stick) Negative mg/dL (NEG) Urine Blood Moderate (NEG) Urine Nitrite Negative (NEG) Urine Bilirubin Negative (NEG) Urine Urobilinogen Dipstick 0.2 mg/dL (0.2 mg/dL) Urine Leukocyte Esterase Negative (NEG) Urine RBC 11-20 /HPF (0-2) Urine WBC 1-4 /HPF (0-4) Urine Bacteria 0 /HPF (0-FEW) Urine Mucus Mod /LPF Glucose (Fingerstick) 127 mg/dL (70-99) Test 03/13/20 06:50 03/13/20 09:14 03/13/20 11:42 03/13/20 16:39 White Blood Count 4.4 x10^3/uL (4.0-11.0) Red Blood Count 4.65 x10^6/uL (4.30-5.70) Hemoglobin 13.1 g/dL (13.0-17.5) Hematocrit 40.0 % (39.0-53.0) Mean Corpuscular Volume 86 fL (79-100) Mean Corpuscular Hemoglobin 28 pg (25-35) Mean Corpuscular Hemoglobin Concent 33 g/dL (31-37) Red Cell Distribution Width 14.1 % (11.5-14.5) Platelet Count 139 x10^3/uL (140-400) Neutrophils (%) (Auto) 49 % (31-73) Lymphocytes (%) (Auto) 37 % (24-48) Monocytes (%) (Auto) 11 % (0-9) Eosinophils (%) (Auto) 2 % (0-3) Basophils (%) (Auto) 1 % (0-3) Neutrophils # (Auto) 2.2 x10^3/uL (1.8-7.7) Lymphocytes # (Auto) 1.6 x10^3/uL (1.0-4.8) Monocytes # (Auto) 0.5 x10^3/uL (0.0-1.1) Eosinophils # (Auto) 0.1 x10^3/uL (0.0-0.7) Basophils # (Auto) 0.0 x10^3/uL (0.0-0.2) Sodium Level 138 mmol/L (136-145) Potassium Level 3.9 mmol/L (3.5-5.1) Chloride Level 104 mmol/L (98-107) Carbon Dioxide Level 26 mmol/L (21-32) Anion Gap 8 (6-14) Blood Urea Nitrogen 12 mg/dL (8-26) Creatinine 0.9 mg/dL (0.7-1.3) Estimated GFR (Cockcroft-Gault) 108.1 BUN/Creatinine Ratio 13 (6-20) Glucose Level 152 mg/dL (70-99) Calcium Level 8.1 mg/dL (8.5-10.1) Total Bilirubin 0.4 mg/dL (0.2-1.0) Aspartate Amino Transf (AST/SGOT) 24 U/L (15-37) Alanine Aminotransferase (ALT/SGPT) 41 U/L (16-63) Alkaline Phosphatase 65 U/L (46-116) Total Protein 6.3 g/dL (6.4-8.2) Albumin 3.0 g/dL (3.4-5.0) Albumin/Globulin Ratio 0.9 (1.0-1.7) Glucose (Fingerstick) 113 mg/dL (70-99) 160 mg/dL (70-99) 132 mg/dL (70-99) Laboratory Tests Test 03/12/20 21:52 03/13/20 06:50 03/13/20 09:14 03/13/20 11:42 Glucose (Fingerstick) 127 mg/dL (70-99) 113 mg/dL (70-99) 160 mg/dL (70-99) White Blood Count 4.4 x10^3/uL (4.0-11.0) Red Blood Count 4.65 x10^6/uL (4.30-5.70) Hemoglobin 13.1 g/dL (13.0-17.5) Hematocrit 40.0 % (39.0-53.0) Mean Corpuscular Volume 86 fL (79-100) Mean Corpuscular Hemoglobin 28 pg (25-35) Mean Corpuscular Hemoglobin Concent 33 g/dL (31-37) Red Cell Distribution Width 14.1 % (11.5-14.5) Platelet Count 139 x10^3/uL (140-400) Neutrophils (%) (Auto) 49 % (31-73) Lymphocytes (%) (Auto) 37 % (24-48) Monocytes (%) (Auto) 11 % (0-9) Eosinophils (%) (Auto) 2 % (0-3) Basophils (%) (Auto) 1 % (0-3) Neutrophils # (Auto) 2.2 x10^3/uL (1.8-7.7) Lymphocytes # (Auto) 1.6 x10^3/uL (1.0-4.8) Monocytes # (Auto) 0.5 x10^3/uL (0.0-1.1) Eosinophils # (Auto) 0.1 x10^3/uL (0.0-0.7) Basophils # (Auto) 0.0 x10^3/uL (0.0-0.2) Sodium Level 138 mmol/L (136-145) Potassium Level 3.9 mmol/L (3.5-5.1) Chloride Level 104 mmol/L (98-107) Carbon Dioxide Level 26 mmol/L (21-32) Anion Gap 8 (6-14) Blood Urea Nitrogen 12 mg/dL (8-26) Creatinine 0.9 mg/dL (0.7-1.3) Estimated GFR (Cockcroft-Gault) 108.1 BUN/Creatinine Ratio 13 (6-20) Glucose Level 152 mg/dL (70-99) Calcium Level 8.1 mg/dL (8.5-10.1) Total Bilirubin 0.4 mg/dL (0.2-1.0) Aspartate Amino Transf (AST/SGOT) 24 U/L (15-37) Alanine Aminotransferase (ALT/SGPT) 41 U/L (16-63) Alkaline Phosphatase 65 U/L (46-116) Total Protein 6.3 g/dL (6.4-8.2) Albumin 3.0 g/dL (3.4-5.0) Albumin/Globulin Ratio 0.9 (1.0-1.7) Test 03/13/20 16:39 Glucose (Fingerstick) 132 mg/dL (70-99) Brief Hospital Course Mr Dennys Silverio" is a 49 yo M w/ PMHx DVT with IVC filter for over 7 years and likely PE 2018, chronic left medial ankle ulcer who comes into ED c/o increased pain, swelling and odor. He has been evaluated at the wound clinic but has not been seen since February 20, 2020. Notes new dark black tissue in wound and swelling with redness. Denies any fever or sick contacts. By visual, appears to have chronic DVT on venous doppler in ED while I am bedside. Left tib/fib XR with no bony abnormalities, soft tissue swelling noted. The patient wears lower extremity compression hose. He was on Coumadin for years with difficulty keeping a therapeutic level and most recently switched to Xarelto. He says that the Xarelto is difficult to afford. He was seen by [facility] vascular surgery previously, had no iliac thrombus burden, IVF filter in place. Has outpatient plans for left greater saphenous vein ablation. Still drinking 5-7 beers daily and smoking up to a pack a day. Labs WNL, no elevation in WBC.Called for admission for failure of outpatient therapy. Afebrile. Wound culture after cleaning wound shows GBS and proteus mirabilis. He is walking the ED halls asking to go home. Advised change to augmentin. Seen by wound care, will have f/u outpatient. Problem list: Left ankle cellulitis with ulcer - will ask wound care to see. Worsened despite outpatient treatment, will elevate leg, initiated on doxycycline. Consult wound care Left leg ulcer - chronic with poor healing. wound care to see. 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 Needs lifelong anticoagulation. Chronic lower back pain - offered muscle relaxants. He is asking for hydrocodone 7.5mg ETOH use - counseled on cutting back Smoker - counseled on cessation, particularly with h/o blood clots Prediabetes - A1c 6 last year. Should be on metformin outpatient Greater than 30 minutes spent on d/c home Discharge Information Condition at Discharge: Improved Follow Up: Weeks Disposition/Orders: D/C to Home Scheduled Amoxicillin/Potassium Clav (Amox Tr-K Clv 875-125 Mg Tab) 1 Each Tablet, 1 TAB PO BID for Proteus and GBS for 10 Days, #20 Prescribed by: ROZINA CEBALLOS MD on 03/13/20 1649 Gabapentin (Gabapentin) 300 Mg Capsule, 300 MG PO TID for Neuropathic pain for 90 Days, #270 Ref 1 Prescribed by: ROZINA CEBALLOS MD on 08/04/19 1602 Last Action: Reviewed on 03/13/2028 by Deyanira Albrecht Magnesium Oxide (Magnesium Oxide) 400 Mg Tablet, 1 TAB PO DAILY, #15 Ref 0 Prescribed by: MONTSE VOSS APRN on 07/26/19 1119 Last Action: Reviewed on 03/13/2028 by Deyanira Albrecht Metformin Hcl (Glucophage) 500 Mg Tablet, 500 MG PO BIDWMEALS for Prediabetes for 30 Days, #60 Prescribed by: ROZINA CEBALLOS MD on 08/04/19 1602 Last Action: Reviewed on 03/13/2028 by Deyanria Albrecht Multivits,Ca,Minerals/Iron/Fa (Thera-M Tablet) 1 Each Tablet, 1 TAB PO DAILY for supplement for 30 Days, #30 Prescribed by: ASA GARCIA MD on 04/01/191202 Last Action: Reviewed on 03/13/2028 by Deyanira Albrecht Rivaroxaban (Xarelto) 20 Mg Tablet, 20 MG PO DAILY for DVT, (Reported) Entered as Reported by: ABBY HUDSON [facility] on 08/03/191552 Last Action: Reviewed on 03/13/2028 by Deyanira Albrecht Thiamine Mononitrate (Vitamin B-1) 100 Mg Tablet, 100 MG PO DAILY for supplement for 30 Days, #30 Prescribed by: ASA GARCIA MD on 04/01/191202 Last Action: Reviewed on 03/13/2028 by Deyanira Albrecht [Folic Acid] 1 MG TABLET, 1 MG PO DAILY for 30 Days, #30 Prescribed by: ASA GARCIA MD on 04/01/191202 Last Action: Reviewed on 03/13/2028 by Deyanira Albrecht Scheduled PRN Acetaminophen (Tylenol) 325 Mg Tablet, 650 MG PO PRN Q4HRS PRN for TEMP OVER 100.4F OR MILD PAIN for 10 Days, #30 Prescribed by: ASA GARCIA MD on 04/01/191202 Last Action: Reviewed on 03/13/2028 by Deyanira Albrecht Hydrocodone Bit/Acetaminophen (Hydrocodone-Apap 7.5-325 ) 1 Tab Tablet, 1 TAB PO PRN Q6HRS PRN for MODERATE-SEVERE PAIN for 6 Days, #12 Prescribed by: ROZINA CEBALLOS MD on 03/13/20 878 Justicifation of Admission Dx: Justifications for Admission: Justification of Admission Dx: Yes Cellulitis: Cellulitis ROZINA CEBALLOS MD Mar 13, 2020 16:54
--- NOTE | 2020-03-13 17:55 | NUR ---
Discharge Note: KEYLA YEE O[facility] [place] Discharge instructions and discharge home medications reviewed with Patient and a copy given. All questions have been answered and understanding verbalized. The following instructions and handouts were given: information about wound care, follow up appointments, medications, diet, etc. Discontinued lines and drains: IV line in left forearm was previously removed today, catheter tip intact. Patient discharged to home with self care, patient ambulated to discharge vehicle.
[2020-03-13] MEDS ORDERED: LACTOBACILLUS RHAMNOSUS GG 1 CAPSULE. PO SCH (21:00)
[2020-03-14] MEDS ORDERED: ASCORBIC ACID 500 MG TABLET PO SCH (09:00)
== END 2020-03-13 17:55 | disposition home or self-care (01) | DRG 603 ==
LOC: ER 12:31 → ED HOLD 16:08 → 4 NORTH 17:53
PROVIDERS: ADMIT Internal Medicine; ATTEND Internal Medicine
DX: L03.116 Cellulitis of left lower limb (principal); I82.502 Chronic embolism and thrombosis of unspecified deep veins of left lower extremity; L97.929 Non-pressure chronic ulcer of unspecified part of left lower leg with unspecified severity; I10 Essential (primary) hypertension; G89.29 Other chronic pain; R73.03 Prediabetes; F17.210 Nicotine dependence, cigarettes, uncomplicated; Z88.5 Allergy status to narcotic agent; Z95.828 Presence of other vascular implants and grafts
CPT/HCPCS: 36415; 73590; 80053; 81001; 82962; 83605; 84145; 85025; 85610; 85730; 87040; 87071; 87075; 90471; 90715; 93923; 93971; J1815; J3010; J3490; J7030; J7060

== ENCOUNTER 2020-05-14 10:11 | Emergency (ER) | payer BC ==
[~2020-05-14] VITALS: Ht 182.9 cm; Wt 112.0 kg
[~2020-05-14 10:11] MED LIST changes: +AMOX1TAB11 PO; -CLIN300C8 PO; +CLIN300C9 PO
--- NOTE | 2020-05-14 10:34 | PHYS DOC ---
Past Medical History Past Medical History: DVT, Hypertension, Other Additional Past Medical Histor: CHRONIC BACK PAIN,UMBILICAL HERNIA, LLE Wound Past Surgical History: Other Additional Past Surgical Histo: L KNEE Smoking Status: Current Every Day Smoker Alcohol Use: Heavy Drug Use: None General Adult EDM: Chief Complaint: LOWER EXT PAIN HPI: HPI: Patient is a 50 year old male with history of DVTs currently on Xarelto and none compliant last taken maybe one week ago, IVC filter 7 years ago, chronic left lower extremity medial wound that has finally healed up presenting today complaining of left calf swelling, pain, symptoms of been going on for 2 weeks. Patient would like the area checked to make sure there is nothing acute going on. Denies any fever. Denies any chest pain or shortness of breath. Currently he is a smoker. Review of Systems: Review of Systems: Constitutional: Denies fever or chills. [] Eyes: Denies change in visual acuity. [] HENT: Denies nasal congestion or sore throat. [] Respiratory: Denies cough or shortness of breath. [] Cardiovascular: Denies chest pain or edema. [] GI: Denies abdominal pain, nausea, vomiting, bloody stools or diarrhea. [] : Denies dysuria. [] Musculoskeletal: Reports left lower extremity specifically calf pain and swelling, denies back pain Integument: Denies rash. [] Neurologic: Denies headache, focal weakness or sensory changes. [] Psychiatric: Denies depression or anxiety. [] Heart Score: Risk Factors: Risk Factors: DM, Current or recent (<one month) smoker, HTN, HLP, family history of CAD, obesity. Risk Scores: Score 0 - 3: 2.5% MACE over next 6 weeks - Discharge Home Score 4 - 6: 20.3% MACE over next 6 weeks - Admit for Clinical Observation Score 7 - 10: 72.7% MACE over next 6 weeks - Early Invasive Strategies Allergies: Allergies: Allergies Coded Allergies Type Severity Reaction Last Updated Verified tramadol Allergy Intermediate Rash 10/25/18 Yes Physical Exam: PE: Constitutional: Well developed, well nourished, no acute distress, non-toxic appearance. [] HENT: Normocephalic, atraumatic, bilateral external ears normal, oropharynx moist, no oral exudates, nose normal. [] Eyes: PERRLA, EOMI, conjunctiva normal, no discharge. [] Neck: Normal range of motion, no tenderness, supple, no stridor. [] Cardiovascular:Heart rate regular rhythm, no murmur [] Lungs & Thorax: Bilateral breath sounds clear to auscultation [] Abdomen: Bowel sounds normal, soft, no tenderness, no masses, no pulsatile masses. [] Skin: Warm, dry, no erythema, no rash. [] Back: No tenderness, no CVA tenderness. [] Extremities: Left lower extremity with no obvious deformity. Palpable little masses noted on the left calf with no erythema. Old wound noted on the left medial foot that is healing very well. +2 left pedal pulse. Neurovascular exam is intact to the left lower extremity. Cap refill less than 2 seconds to left toes. Positive Homans' sign to the left lower extremity. Neurologic: Alert and oriented X 3, normal motor function, normal sensory function, no focal deficits noted. [] Psychologic: Affect normal, judgement normal, mood normal. [] EKG: EKG: [] Radiology/Procedures: Radiology/Procedures: [] Course & Med Decision Making: Course & Med Decision Making Pertinent Labs and Imaging studies reviewed. (See chart for details) This is a 50-year-old male patient presented to the ED today with pain and swelling on the left calf for the last 2 weeks. Patient is currently on Xarelto for DVTs but he is noncompliant, he thinks the last time he took the medicine was 1 week ago. Left lower extremity positive for partially occlusive thrombus in the left SVC extending through the popliteal into the peroneal veins. Spoke with Dr. Mcmullen. He stated patient can be discharged back home to his Xarelto and instructed to be compliant. Patient states he has Xarelto but never takes them as ordered. He was discharged to home with education on the importance of compliance with treatment. Dragon Disclaimer: Dragchaim Disclaimer: This electronic medical record was generated, in whole or in part, using a voice recognition dictation system. Departure Departure Impression: Primary Impression: Left leg DVT Qualified Codes: I82.432 - Acute embolism and thrombosis of left popliteal vein Disposition: 01 DC HOME SELF CARE/HOMELESS Condition: STABLE Referrals: Adithya MATTHEWS MD (PCP) Follow-up in 1 to 2 days Patient Instructions: Deep Vein Thrombosis Additional Instructions: You have a blood clot in your left lower extremity. Please take Xarelto as ordered. Please do not miss this medication. Please contact your primary care doctor today and set up a follow-up appointment. JESSICA GONZALES APRN May 14, 2020 10:34
--- NOTE | 2020-05-14 11:24 | RAD ---
Exam: US DPLX VENOUS EXTREMITY LOWER LT Indication: Reason: lower extremity swelling / Spl. Instructions: / History: Technique: Color-flow and pulsed wave duplex ultrasound with compression of venous structures of the left lower extremity. Comparison: None Available. Findings: Partially occlusive thrombus in the left SFV extending through the popliteal and into the p eroneal veins. Impression: Left lower extremity is positive for DVT. Electronically signed by: Naresh Guzmán MD (05/14/2020 11:21 AM) [id number]
[2020-05-14 11:30] VITALS: BP 133/80
== END 2020-05-14 12:12 | disposition home or self-care (01) ==
LOC: ER 10:11
DX: I82.432 Acute embolism and thrombosis of left popliteal vein (principal); M79.662 Pain in left lower leg; R60.0 Localized edema; I10 Essential (primary) hypertension; G89.29 Other chronic pain; F17.200 Nicotine dependence, unspecified, uncomplicated; F10.10 Alcohol abuse, uncomplicated; Z98.890 Other specified postprocedural states; Z88.8 Allergy status to other drugs, medicaments and biological substances
CPT/HCPCS: 93971; 96372; 99284; J1650

== ENCOUNTER 2020-05-19 08:35 | Emergency (ER) | payer BC ==
[~2020-05-19] VITALS: Ht 182.9 cm; Wt 114.0 kg
[~2020-05-19 08:35] MED LIST changes: -MULT1TAB90 PO; +MULT1TAB92 PO
[2020-05-19 10:00] VITALS: BP 149/70
--- NOTE | 2020-05-19 10:19 | PHYS DOC ---
Past Medical History Past Medical History: Diabetes-Type II, DVT, Hypertension, Other Additional Past Medical Histor: CHRONIC BACK PAIN,UMBILICAL HERNIA, LLE Wound Past Surgical History: Other Additional Past Surgical Histo: L KNEE Smoking Status: Current Every Day Smoker Alcohol Use: Heavy Drug Use: None General Adult EDM: Chief Complaint: LOWER EXT PAIN HPI: HPI: Patient is a 50 year old male who presented to ER wanting to have Lovenox for his DVT in the left leg. Patient has history of DVT in the past, he also has history of PE in the past as well, had IVC filter. He was noncompliant to medication treatment. Patient was evaluated here on May 14 due to left leg pain, ultrasound showed DVT, patient was put on Xarelto 20 mg daily. Patient adamantly stated that he has been taking Xarelto as directed. He still has pain in his left calf so he came to the ER wanting Lovenox shot so he can break up the clot in his left leg. Patient denies any cough, no fever, no chest pain, no trouble breathing. Review of Systems: Review of Systems: Constitutional: Denies fever or chills. [] Eyes: Denies change in visual acuity. [] HENT: Denies nasal congestion or sore throat. [] Respiratory: Denies cough or shortness of breath. [] Cardiovascular: Denies chest pain or edema. [] GI: Denies abdominal pain, nausea, vomiting, bloody stools or diarrhea. [] : Denies dysuria. [] Musculoskeletal: Positive for left leg pain. Integument: Denies rash. [] Neurologic: Denies headache, focal weakness or sensory changes. [] Endocrine: Denies polyuria or polydipsia. [] Lymphatic: Denies swollen glands. [] Psychiatric: Denies depression or anxiety. [] Heart Score: Risk Factors: Risk Factors: DM, Current or recent (<one month) smoker, HTN, HLP, family history of CAD, obesity. Risk Scores: Score 0 - 3: 2.5% MACE over next 6 weeks - Discharge Home Score 4 - 6: 20.3% MACE over next 6 weeks - Admit for Clinical Observation Score 7 - 10: 72.7% MACE over next 6 weeks - Early Invasive Strategies Allergies: Allergies: Allergies Coded Allergies Type Severity Reaction Last Updated Verified tramadol Allergy Intermediate Rash 10/25/18 Yes Physical Exam: PE: Constitutional: Well developed, well nourished, no acute distress, non-toxic appearance. [] HENT: Normocephalic, atraumatic, bilateral external ears normal, oropharynx moist, no oral exudates, nose normal. [] Eyes: PERRLA, EOMI, conjunctiva normal, no discharge. [] Neck: Normal range of motion, no tenderness, supple, no stridor. [] Cardiovascular:Heart rate regular rhythm, no murmur [] Lungs & Thorax: Bilateral breath sounds clear to auscultation [] Abdomen: Bowel sounds normal, soft, no tenderness, no masses, no pulsatile masses. [] Skin: Warm, dry, no erythema, no rash. [] Back: No tenderness, no CVA tenderness. [] Extremities: No tenderness, no cyanosis, no clubbing, ROM intact, no edema. [] Neurologic: Alert and oriented X 3, normal motor function, normal sensory function, no focal deficits noted. [] Psychologic: Affect normal, judgement normal, mood normal. [] Current Patient Data: Vital Signs: Vital Signs Date Time Temp Pulse Resp B/P (MAP) Pulse Ox O2 Delivery O2 Flow Rate FiO2 05/19/20 10:00 98.8 78 16 149/70 (96) 99 Room Air 98.8 EKG: EKG: [] Radiology/Procedures: Radiology/Procedures: [] Course & Med Decision Making: Course & Med Decision Making Pertinent Labs and Imaging studies reviewed. (See chart for details) Patient is a 50-year-old male who has history of DVT, he is currently on Xarelto 20 mg daily. Patient adamantly stated that he is taking the medication as directed. Therefore he does not need to have Lovenox shots. Patient will continue to take his medication as directed. Dragon Disclaimer: [email or web address] Disclaimer: This electronic medical record was generated, in whole or in part, using a voice recognition dictation system. Departure Departure Impression: Primary Impression: Left leg DVT Disposition: 01 DC HOME SELF CARE/HOMELESS Condition: STABLE Referrals: Adithya MATTHEWS MD (PCP) Patient Instructions: Deep Vein Thrombosis Additional Instructions: You will need to continue your current treatment of Xarelto 20 mg daily as prescribed. Follow up with your doctor as needed. Thank you for visiting our Emergency Department. We appreciate you trusting us with your care. If any additional problems come up don't hesitate to return to visit us. Please follow up with your primary care provider so they can plan additional care if needed and know about the problem that you had. If symptoms worsen come back to the Emergency Department. Any concerning symptoms that start such as chest pain, shortness of air, weakness or numbness on one side of the body, running high fevers or any other concerning symptoms return to the ER. BRIAN MENDOZA DO May 19, 2020 10:19
== END 2020-05-19 10:29 | disposition home or self-care (01) ==
LOC: ER 08:35
DX: I82.402 Acute embolism and thrombosis of unspecified deep veins of left lower extremity (principal); I10 Essential (primary) hypertension; E11.9 Type 2 diabetes mellitus without complications; G89.29 Other chronic pain; F17.200 Nicotine dependence, unspecified, uncomplicated; Z88.6 Allergy status to analgesic agent
CPT/HCPCS: 99281; 99283

== ENCOUNTER 2020-06-12 23:01 | Emergency (ER) | payer BC ==
[~2020-06-12] VITALS: Ht 182.9 cm; Wt 114.5 kg
[2020-06-12] MEDS ORDERED: IV NORMAL SALINE 1000ML BAG 1,000 ML IV SCH (23:15)
[2020-06-12] MEDS ORDERED: fentaNYL PF VIAL 100 MCG/2 ML VIAL IVP ONE (23:15)
[2020-06-12] MEDS ORDERED: ONDANSETRON PF 4 MG/2 ML VIAL. IVP ONE (23:15)
--- NOTE | 2020-06-12 23:18 | PHYS DOC ---
Past Medical History Past Medical History: Diabetes-Type II, DVT, Hypertension, Other Additional Past Medical Histor: CHRONIC BACK PAIN,UMBILICAL HERNIA, LLE Wound Past Surgical History: Other Additional Past Surgical Histo: L KNEE Smoking Status: Current Every Day Smoker Alcohol Use: Heavy Drug Use: None General Adult EDM: Chief Complaint: ABDOMINAL PAIN HPI: HPI: Patient is a 50 year old male who presents with states all day has been working on his truck and had a constant oil when radiator fluid on his hands and he wiped off his hands but he decided to eat a sandwich. He said he is eating sandwiches or tasting funny as if he was ingesting some of the Gator fluid. He states his stomach began to hurt. Patient has a umbilical hernia of which he states he usually is able to push back in but today he is unable to push back in. He states once today he did push it back in but is come back out and is hardened. He is rating his abdominal pain that he states radiates down through to his back a 10 out of 10. He states he did not take any pain medication. He states his last bowel movement was yesterday. He states he denies vomiting, chest pain, shortness of air, fever, urinary symptoms, diarrhea, constipation. Patient has a history of hypertension, diabetes, chronic back pain, buccal hernia, DVT with vein stripping and smoker. Review of Systems: Review of Systems: Constitutional: Denies fever or chills. [] Eyes: Denies change in visual acuity. [] HENT: Denies nasal congestion or sore throat. [] Respiratory: Denies cough or shortness of breath. [] Cardiovascular: Denies chest pain or edema. [] GI: Denies abdominal pain, nausea, vomiting, bloody stools or diarrhea. [] : Denies dysuria. [] Musculoskeletal: Denies back pain or joint pain. [] Integument: Denies rash. [] Neurologic: Denies headache, focal weakness or sensory changes. [] Endocrine: Denies polyuria or polydipsia. [] Lymphatic: Denies swollen glands. [] Psychiatric: Denies depression or anxiety. [] Heart Score: Risk Factors: Risk Factors: DM, Current or recent (<one month) smoker, HTN, HLP, family history of CAD, obesity. Risk Scores: Score 0 - 3: 2.5% MACE over next 6 weeks - Discharge Home Score 4 - 6: 20.3% MACE over next 6 weeks - Admit for Clinical Observation Score 7 - 10: 72.7% MACE over next 6 weeks - Early Invasive Strategies Allergies: Allergies: Allergies Coded Allergies Type Severity Reaction Last Updated Verified tramadol Allergy Intermediate Rash 10/25/18 Yes Physical Exam: PE: Constitutional: Well developed, well nourished, no acute distress, non-toxic appearance. [] HENT: Normocephalic, atraumatic, bilateral external ears normal, oropharynx moist, no oral exudates, nose normal. [] Eyes: PERRLA, EOMI, conjunctiva normal, no discharge. [] Neck: Normal range of motion, no tenderness, supple, no stridor. [] Cardiovascular:Heart rate regular rhythm, no murmur [] Lungs & Thorax: Bilateral breath sounds clear to auscultation [] Abdomen: Bowel sounds normal, soft, umbilical tenderness, umbilical hernia, no masses, no pulsatile masses. [] Skin: Warm, dry, no erythema, no rash. [] Back: No tenderness, no CVA tenderness. [] Extremities: No tenderness, no cyanosis, no clubbing, ROM intact, no edema. [] Neurologic: Alert and oriented X 3, normal motor function, normal sensory function, no focal deficits noted. [] Psychologic: Affect normal, judgement normal, mood normal. [] EKG: EKG: [] Radiology/Procedures: Radiology/Procedures: [] Impression: [facility] [address] [facility] [place] [address] IMAGING REPORT Signed PATIENT: KEYLA YEE ACCOUNT: [id number] : 1970 LOCATION: ER AGE: 50 SEX: M EXAM STATUS: REG ER ORD. PHYSICIAN: INGA RENE APRN REASON: umbilical hernia hard and painful PROCEDURE: CT ABD PELV W/ IV CONTRST ONLY PQRS Compliance Statement: One or more of the following individualized dose reduction techniques were utilized for this examination: 1. Automated exposure control 2. Adjustment of the mA and/or kV according to patient size 3. Use of iterative reconstruction technique CT ABDOMEN+PELVIS W Clinical Indication: Reason: umbilical hernia hard and painful Comparison: CT abdomen and pelvis with contrast March 30, 2019. Technique: Helical CT imaging of the abdomen and pelvis is performed after 75 cc of Omnipaque 300 IV contrast. Oral contrast not administered. Findings: There is mild bilateral dependent atelectasis. The cardiac size is normal. Hepatomegaly. The liver is homogeneous. The gallbladder, spleen, pancreas, and adrenal glands are normal. The abdominal aorta is normal caliber. There is IVC filter. Kidneys enhance symmetrically, no hydronephrosis. Duplication of left collecting system. The stomach is unremarkable. There is moderate-sized fat-containing umbilical hernia. There is greater induration of the fat in the hernia anteriorly compared to the prior study. There is no dilated small bowel. The appendix is normal. There is no colon wall thickening. There is no abdominal adenopathy or free fluid. There is stent of the left common iliac vein, unchanged. The urinary bladder is normal. Prostate size normal. No pelvic free fluid. Bilateral inguinal lymph nodes may be reactive. There is mild grade 1 retrolisthesis of L5 on S1. IMPRESSION: There is moderate sized fat-containing umbilical hernia. There is greater induration of the fat in the hernia anteriorly which may be compatible with the patient's symptoms. Electronically signed by: Connor Hancock MD (06/13/2020 12:26 AM) [facility] DICTATED and SIGNED BY: CONNOR HANCOCK MD DATE: 06/13/20 [id number] 0 Course & Med Decision Making: Course & Med Decision Making Pertinent Labs and Imaging studies reviewed. (See chart for details) See HPI. Alert and oriented x4. Ambulatory with a steady gait. Abdomen is taut with a umbilical hernia that is very painful when I am pushing down on it. The hernia does slightly go back in snf but pops back out. It is egg sized. Afebrile. Patient states his last bowel movement was yesterday but he usually has a bowel movement daily. Speaks in full complete sentences. 0032: upon reexamination the patient the hernia has now went back in by itself. The abdomen is now soft and nontender. The umbilical hernia is now very soft and nontender. Patient states he feels a lot better and he is back to normal. Lab work is unremarkable. CT shows: There is moderate sized fat-containing umbilical hernia. There is greater induration of the fat in the hernia anteriorly which may be compatible with the patient's symptoms. Blood work unremarkable. Urinalysis has some blood but no bacteria and no leukocytes. [] Dragon Disclaimer: Dragon Disclaimer: This electronic medical record was generated, in whole or in part, using a voice recognition dictation system. Departure Departure Impression: Primary Impression: Umbilical hernia Qualified Codes: K42.9 - Umbilical hernia without obstruction or gangrene Disposition: 01 DC HOME SELF CARE/HOMELESS Condition: STABLE Referrals: Adithya MATTHEWS MD (PCP) SARY MEEHAN MD Patient Instructions: Hernia Additional Instructions: Follow up with primary care provider or the Surgeon I have referred you too. I you begin having severe pain again and the hernia becomes hard return to the emergency room. INGA RENE [employer] Jun 12, 2020 23:17
[2020-06-12 23:27] LABS: BASO % 1 % (0-3); EOS # 0.1 x10^3/uL (0.0-0.7); EOS % 2 % (0-3); HEMATOCRIT 40.7 % (39.0-53.0); HEMOGLOBIN 13.6 g/dL (13.0-17.5); LYMPH # 2.2 x10^3/uL (1.0-4.8); LYMPH % 44 % (24-48); MEAN CORPUSCULAR HEMOGLOBIN 28 pg (25-35); MEAN CORPUSCULAR HGB CONC 33 g/dL (31-37); MEAN CORPUSCULAR VOLUME 85 fL (79-100); MONO # 0.5 x10^3/uL (0.0-1.1); MONO % 9 % (0-9); NEUT # 2.2 x10^3/uL (1.8-7.7); NEUT % 44 % (31-73); PLATELET COUNT 162 x10^3/uL (140-400); RED BLOOD COUNT 4.78 x10^6/uL (4.30-5.70); RED CELL DISTRIBUTION WIDTH 13.9 % (11.5-14.5); WHITE BLOOD COUNT 5.1 x10^3/uL (4.0-11.0)
[2020-06-12 23:38] LABS: CALCIUM 8.8 mg/dL (8.5-10.1); GFR 95.7; POTASSIUM 3.7 mmol/L (3.5-5.1)
[2020-06-12 23:44] LABS: ALBUMIN 3.7 g/dL (3.4-5.0); TOTAL BILIRUBIN 0.4 mg/dL (0.2-1.0); TOTAL PROTEIN 7.4 g/dL (6.4-8.2)
[2020-06-13] MEDS ORDERED: CONTRAST GIVEN. MC PRN
[2020-06-13] MEDS ORDERED: IOHEXOL 300 MG/ML 100ML VIAL. IV ONE
[2020-06-13 00:27] LABS: BILIRUBIN,URINE NEGATIVE (NEG); CLARITY,URINE CLEAR; COLOR,URINE YELLOW; NITRITE,URINE NEGATIVE (NEG); PROTEIN,URINE NEGATIVE (NEG-TRACE)
--- NOTE | 2020-06-13 00:28 | RAD ---
PQRS Compliance Statement: One or more of the following individualized dose reduction techniques were utilized for this examinat ion: 1. Automated exposure control 2. Adjustment of the mA and/or kV according to patient size 3. Use of iterative reconstruction technique CT ABDOMEN+PELVIS W Clinical Indication: Reason: umbilical hernia hard and painful Comparison: CT abdomen and pelvis with contrast March 30, 2019. Technique: Helical CT imaging of the abdomen and pelvis is performed after 75 cc of Omnipaque 300 IV contrast. Oral contrast not administered. Findings: There is mild bilateral dependent atelectasis. The cardiac size is normal. Hepatomegaly. The liver is homogeneous. The gallbladder, spleen, pancreas, and adrenal glands are nor mal. The abdominal aorta is normal caliber. There is IVC filter. Kidneys enhance symmetrically, no hy dronephrosis. Duplication of left collecting system. The stomach is unremarkable. There is moderate-sized fat-containing umbilical hernia. There is greate r induration of the fat in the hernia anteriorly compared to the prior study. There is no dilated sma ll bowel. The appendix is normal. There is no colon wall thickening. There is no abdominal adenopathy or free fluid. There is stent of the left common iliac vein, unchanged. The urinary bladder is normal. Prostate size normal. No pelvic free fluid. Bilateral inguinal lymph n odes may be reactive. There is mild grade 1 retrolisthesis of L5 on S1. IMPRESSION: There is moderate sized fat-containing umbilical hernia. There is greater induration of the fat in th e hernia anteriorly which may be compatible with the patient's symptoms. Electronically signed by: Connor Hancock MD (06/13/2020 12:26 AM) [facility]
[2020-06-13 00:36] LABS: AMORPHOUS SEDIMENT,UR PRESENT /HPF; BACTERIA,URINE 0 /HPF (0-FEW); WBC,URINE RARE /HPF (0-4)
[2020-06-13 00:59] VITALS: BP 122/67
== END 2020-06-13 00:59 | disposition home or self-care (01) ==
LOC: ER 23:01
DX: K42.9 Umbilical hernia without obstruction or gangrene (principal); E11.9 Type 2 diabetes mellitus without complications; I10 Essential (primary) hypertension; G89.29 Other chronic pain; F17.200 Nicotine dependence, unspecified, uncomplicated; Z86.718 Personal history of other venous thrombosis and embolism; Z88.6 Allergy status to analgesic agent
CPT/HCPCS: 36415; 74177; 80053; 81001; 83605; 83690; 85025; 96361; 96374; 96375; 99285; J2405; J3010; J7030; Q9967

== ENCOUNTER 2020-07-04 10:38 | Emergency (ER) | payer BC ==
[~2020-07-04] VITALS: Ht 185.4 cm; Wt 112.5 kg
[~2020-07-04 10:38] MED LIST changes: +MULT1TAB90 PO; -MULT1TAB92 PO
[2020-07-04] MEDS ORDERED: PENICILLIN G BENZATHINE LA 2,400,000 UNIT/4 ML DISP.SYRIN. IM ONE (11:15)
[2020-07-04 11:18] VITALS: BP 133/65
--- NOTE | 2020-07-04 11:43 | PHYS DOC ---
Past Medical History Past Medical History: Diabetes-Type II, DVT, Hypertension, Other Additional Past Medical Histor: CHRONIC BACK PAIN,UMBILICAL HERNIA, LLE Wound Past Surgical History: Other Additional Past Surgical Histo: L KNEE Smoking Status: Current Every Day Smoker Alcohol Use: Heavy Drug Use: None General Adult EDM: Chief Complaint: LOWER EXT PAIN HPI: HPI: Patient is a 50 year old male with a history of chronic left leg DVT, presented to ER due to left leg swelling and pain for several weeks. Patient is currently on Xarelto. Patient denies any chest pain, no trouble breathing. Patient also complained of a rash on his penis that is not painful for 1 week. Patient denies any penile discharge, he is sexually active with one partner. Patient denies any fever. Patient denies any abdominal pain, no nausea vomiting. Review of Systems: Review of Systems: Constitutional: Denies fever or chills. [] Eyes: Denies change in visual acuity. [] HENT: Denies nasal congestion or sore throat. [] Respiratory: Denies cough or shortness of breath. [] Cardiovascular: Denies chest pain or edema. [] GI: Denies abdominal pain, nausea, vomiting, bloody stools or diarrhea. [] : Denies dysuria. [] Musculoskeletal: Positive for left leg pain and swelling. Integument: Positive for painless rash on penile shaft Neurologic: Denies headache, focal weakness or sensory changes. [] Endocrine: Denies polyuria or polydipsia. [] Lymphatic: Denies swollen glands. [] Psychiatric: Denies depression or anxiety. [] Heart Score: Risk Factors: Risk Factors: DM, Current or recent (<one month) smoker, HTN, HLP, family history of CAD, obesity. Risk Scores: Score 0 - 3: 2.5% MACE over next 6 weeks - Discharge Home Score 4 - 6: 20.3% MACE over next 6 weeks - Admit for Clinical Observation Score 7 - 10: 72.7% MACE over next 6 weeks - Early Invasive Strategies Current Medications: Current Medications Medications (Trade) Dose Ordered Sig/Cameron Start Time Stop Time Status Last Admin Dose Admin Penicillin G Benzathine (Bicillin L-A) 2,400,000 unit 1X ONCE 07/04/20 11:15 07/04/20 11:16 DC Allergies: Allergies: Allergies Coded Allergies Type Severity Reaction Last Updated Verified tramadol Allergy Intermediate Rash 10/25/18 Yes Physical Exam: PE: Constitutional: Well developed, well nourished, no acute distress, non-toxic appearance. [] HENT: Normocephalic, atraumatic, bilateral external ears normal, oropharynx moist, no oral exudates, nose normal. [] Eyes: PERRLA, EOMI, conjunctiva normal, no discharge. [] Neck: Normal range of motion, no tenderness, supple, no stridor. [] Cardiovascular:Heart rate regular rhythm, no murmur [] Lungs & Thorax: Bilateral breath sounds clear to auscultation [] Abdomen: Bowel sounds normal, soft, no tenderness, no masses, no pulsatile masses. [] Skin: Warm, dry, button-like painless ulcerated lesion on penile shaft. No penile discharge. ] Back: No tenderness, no CVA tenderness. [] Extremities: Left leg is swelling and tender, left calf is swollen and tender. Neurologic: Alert and oriented X 3, normal motor function, normal sensory function, no focal deficits noted. [] Psychologic: Affect normal, judgement normal, mood normal. [] Current Patient Data: Labs: Laboratory Tests Test 07/04/20 11:22 Treponema pallidum Antibody Nonreactive Current Medications Medications (Trade) Dose Ordered Sig/Cameron Route PRN Reason Start Time Stop Time Status Last Admin Dose Admin Penicillin G Benzathine (Bicillin L-A) 2,400,000 unit 1X ONCE IM 07/04/20 11:15 07/04/20 11:16 DC 07/04/20 12:08 Vital Signs: Vital Signs Date Time Temp Pulse Resp B/P (MAP) Pulse Ox O2 Delivery O2 Flow Rate FiO2 07/04/20 11:18 97.6 73 16 133/65 (87) 98 97.6 EKG: EKG: [] Radiology/Procedures: Radiology/Procedures: [][facility] [address] [place] [address] IMAGING REPORT Signed PATIENT: KEYLA YEE ACCOUNT: [id number] : 1970 LOCATION: ER AGE: 50 SEX: M EXAM STATUS: REG ER ORD. PHYSICIAN: BRIAN MENDOZA DO REASON: left leg pain and swelling, hx of DVT PROCEDURE: VENOUS LOWER EXTREMITY LEFT INDICATION: Reason: left leg pain and swelling, hx of DVT / Spl. Instructions: / History: COMPARISON: April 2020 TECHNIQUE: Grayscale, color and doppler ultrasound images were obtained of the left lower extremity venous vasculature. LEFT: Vascular flow is seen within the left common femoral vein. Partial thrombus is identified of the superficial femoral and popliteal vein. The posterior tibial vein is not well seen. Thrombus within peroneal vein. IMPRESSION: * Partial thrombus within the left superficial femoral, popliteal and peroneal vein is again seen without a major change from prior. Electronically signed by: Michela Hanna MD (07/04/2020 12:14 PM) [id number] DICTATED and SIGNED BY: MICHELA HANNA MD DATE: 07/04/20 [id number] 0 Course & Med Decision Making: Course & Med Decision Making Pertinent Labs and Imaging studies reviewed. (See chart for details) Patient is a 50-year-old male who presented to ER due to left leg pain and swelling, chronic DVT, no change from previous ultrasound. Patient is already on Xarelto. Patient also complained of painless lesion on his penis area suspected of syphilis, syphilis study was nonreactive, however patient was given 2.4 MILLIONS UINITS of Bicillin LA IM FOR SUSPECTED SIPHILIS INFECTION. Dragon Disclaimer: Dragon Disclaimer: This electronic medical record was generated, in whole or in part, using a voice recognition dictation system. Departure Departure Impression: Primary Impression: Chronic deep vein thrombosis (DVT) Additional Impression: Skin lesion Disposition: 01 DC HOME SELF CARE/HOMELESS Condition: STABLE Referrals: Adithya MATTHEWS MD (PCP) Follow up with your doctor next week Patient Instructions: Deep Vein Thrombosis, Skin Infections Additional Instructions: Thank you for visiting our Emergency Department. We appreciate you trusting us with your care. If any additional problems come up don't hesitate to return to visit us. Please follow up with your primary care provider so they can plan additional care if needed and know about the problem that you had. If symptoms worsen come back to the Emergency Department. Any concerning symptoms that start such as chest pain, shortness of air, weakness or numbness on one side of the body, running high fevers or any other concerning symptoms return to the ER. Scripts Sulfamethoxazole/Trimethoprim (BACTRIM DS TABLET) 1 Each Tablet 1 TAB PO BID for 10 Days, #20 TAB 0 Refills Prov: BRIAN MENDOZA DO 07/04/20 BRIAN MENDOZA DO Jul 04, 2020 11:43
--- NOTE | 2020-07-04 12:16 | RAD ---
INDICATION: Reason: left leg pain and swelling, hx of DVT / Spl. Instructions: / History: COMPARISON: April 2020 TECHNIQUE: Grayscale, color and doppler ultrasound images were obtained of the left lower extremity v enous vasculature. LEFT: Vascular flow is seen within the left common femoral vein. Partial thrombus is identified of the supe rficial femoral and popliteal vein. The posterior tibial vein is not well seen. Thrombus within peron eal vein. IMPRESSION: * Partial thrombus within the left superficial femoral, popliteal and peroneal vein is again seen w ithout a major change from prior. Electronically signed by: Saman Cameron MD (07/04/2020 12:14 PM) [id number]
[2020-07-04] MEDS ORDERED: SULF1TAB24 PO (12:32)
== END 2020-07-04 12:49 | disposition home or self-care (01) ==
LOC: ER 10:38
DX: I82.502 Chronic embolism and thrombosis of unspecified deep veins of left lower extremity (principal); L98.9 Disorder of the skin and subcutaneous tissue, unspecified; R60.0 Localized edema; E11.9 Type 2 diabetes mellitus without complications; I10 Essential (primary) hypertension; G89.29 Other chronic pain; F17.210 Nicotine dependence, cigarettes, uncomplicated; F10.10 Alcohol abuse, uncomplicated; Z98.890 Other specified postprocedural states; Z88.8 Allergy status to other drugs, medicaments and biological substances
CPT/HCPCS: 36415; 86592; 93971; 96372; 99284; J0561

== ENCOUNTER 2020-10-15 12:12 | Emergency (ER) | payer BC ==
[~2020-10-15] VITALS: Ht 182.9 cm; Wt 110.9 kg
[~2020-10-15 12:12] MED LIST changes: -MULT1TAB90 PO; +MULT1TAB92 PO; +SULF1TAB24 PO
[2020-10-15] MEDS ORDERED: NAPROXEN 500 MG TABLET PO STA (14:16)
[2020-10-15 14:46] VITALS: BP 142/67
--- NOTE | 2020-10-15 15:01 | RAD ---
LEFT LEG VENOUS DOPPLER STUDY: Clinical indications: Painful knot within the left thigh. Patient is on blood thinners. History of DV T. COMPARISON: July 04, 2020.. Findings: Duplex sonography (including caballero scale evaluation and color flow and waveform spectral светлана lysis) of the proximal aspect of the greater saphenous vein and the proximal aspect of the profunda f emoral vein and the entire length of the common femoral and superficial femoral and popliteal veins a nd the tibioperoneal trunk and the proximal aspect of the posterior tibial and peroneal veins of the left leg was performed. Again seen is partial nonocclusive thrombosis within the left superficial fem oral vein and popliteal vein and the peroneal veins and posterior tibial veins. This is unchanged fro m the prior study. No new thrombosis is seen. Impression: Chronic partial nonocclusive thrombosis within the left superficial femoral vein and popl iteal vein and calf veins. No change. Sonography of the area of the painful knot in the thigh was performed. No focal sonographic abnormali ty is seen here. Electronically signed by: Daryl Daly MD (10/15/2020 2:59 PM) [id number]
[2020-10-15] MEDS ORDERED: NAPR-514 PO (15:25)
--- NOTE | 2020-10-15 15:26 | ED.ADGEN ---
Past Medical History Past Medical History: Diabetes-Type II, DVT, Hypertension, Other Additional Past Medical Histor: CHRONIC BACK PAIN,UMBILICAL HERNIA, LLE Wound Past Surgical History: Other Additional Past Surgical Histo: L KNEE Smoking Status: Current Every Day Smoker Additional Information: 0.5 PPD Alcohol Use: Heavy Additional Information: DRINKS 6 PACK BEER DAILY Drug Use: None General Adult EDM: Chief Complaint: LOWER EXT PAIN HPI: HPI: Patient is a 50 year old AA male who presents emergency department with complaints of pain in his medial left thigh. Patient reports feeling the sensation of a few charley horses in his leg a few hours ago. Since then his left thigh has been aching. Patient reports history of chronic clots in the affected leg. He denies any numbness, tingling, decreased sensation, pallor, or extreme pain. He denies any swelling, warmth, or change in skin color. Patient denies any injury to his leg. He currently rates the discomfort 8 out of 10 on the pain scale, he denies any alleviating factors, the pain is worse with palpation. Review of Systems: Review of Systems: Complete ROS is negative unless otherwise noted in HPI. Current Medications: Current Medications Medications (Trade) Dose Ordered Sig/Cameron Start Time Stop Time Status Last Admin Dose Admin Naproxen (Naprosyn) 500 mg 1X STAT 10/15/20 14:16 10/15/20 14:17 DC 10/15/20 14:30 500 MG Allergies: Allergies: Allergies Coded Allergies Type Severity Reaction Last Updated Verified tramadol Allergy Intermediate Rash 10/25/18 Yes Physical Exam: PE: See Above Constitutional: Well developed, well nourished, no acute distress, non-toxic appearance. [] HENT: Normocephalic, atraumatic, bilateral external ears normal, nose normal. [] Eyes: PERRLA, EOMI, conjunctiva normal, no discharge. [] Neck: Normal range of motion, no stridor. [] Cardiovascular:Heart rate regular rhythm Lungs & Thorax: Respirations even and unlabored, no retractions, no respiratory distress Skin: Warm, dry, no erythema, no rash. [] Extremities: RLE: Medial thigh TTP, cap refill less than 2 seconds, normal sensation, no bruising, no cyanosis, ROM intact, no edema. [] Neurologic: Alert and oriented X 3, no focal deficits noted. [] Psychologic: Affect normal, judgement normal, mood normal. [] Current Patient Data: Vital Signs: Vital Signs Date Time Temp Pulse Resp B/P (MAP) Pulse Ox O2 Delivery O2 Flow Rate FiO2 10/15/20 14:46 72 142/67 (92) 98 Room Air 10/15/20 13:34 97.8 17 97.8 EKG: EKG: [] Heart Score: C/O Chest Pain: No Risk Scores: Score 0 - 3: 2.5% MACE over next 6 weeks - Discharge Home Score 4 - 6: 20.3% MACE over next 6 weeks - Admit for Clinical Observation Score 7 - 10: 72.7% MACE over next 6 weeks - Early Invasive Strategies Radiology/Procedures: Radiology/Procedures: PROCEDURE: VENOUS LOWER EXTREMITY LEFT LEFT LEG VENOUS DOPPLER STUDY: Clinical indications: Painful knot within the left thigh. Patient is on blood thinners. History of DVT. COMPARISON: July 04, 2020.. Findings: Duplex sonography (including caballero scale evaluation and color flow and waveform spectral analysis) of the proximal aspect of the greater saphenous vein and the proximal aspect of the profunda femoral vein and the entire length of the common femoral and superficial femoral and popliteal veins and the tibioperoneal trunk and the proximal aspect of the posterior tibial and peroneal veins of the left leg was performed. Again seen is partial nonocclusive thrombosis within the left superficial femoral vein and popliteal vein and the peroneal veins and posterior tibial veins. This is unchanged from the prior study. No new thrombosis is seen. Impression: Chronic partial nonocclusive thrombosis within the left superficial femoral vein and popliteal vein and calf veins. No change. Sonography of the area of the painful knot in the thigh was performed. No focal sonographic abnormality is seen here. Electronically signed by: Daryl Daly MD (10/15/2020 2:59 PM) [id number] [] Course & Med Decision Making: Course & Med Decision Making Pertinent Labs and Imaging studies reviewed. (See chart for details) [] Dragon Disclaimer: Dragon Disclaimer: This electronic medical record was generated, in whole or in part, using a voice recognition dictation system. Departure Departure Impression: Primary Impression: Chronic deep vein thrombosis (DVT) Additional Impression: Left leg pain Disposition: 01 HOME / SELF CARE / HOMELESS Condition: STABLE Referrals: Adithya MATTHEWS MD (PCP) Patient Instructions: Venous Stasis and Chronic Venous Insufficiency Additional Instructions: Fill the prescription and use as directed. You may also take Tylenol as need for pain. Follow up with your primary care doctor in 1-2 days, return to the ER if symptoms worsen . Scripts Naproxen (NAPROXEN) 500 Mg Tablet 1 TAB PO BID PRN for PAIN for 10 Days, #20 TAB 0 Refills Prov: JAKE GUO APRN 10/15/20 Problem Qualifiers Primary Impression: Chronic deep vein thrombosis (DVT) DVT location: lower extremity Affected thrombotic vein of extremity: femoral Laterality: left Qualified Codes: I82.512 - Chronic embolism and thrombosis of left femoral vein JAKE GUO [employer] October 15, 2020 15:26
== END 2020-10-15 15:31 | disposition home or self-care (01) ==
LOC: ER 12:12
DX: I82.512 Chronic embolism and thrombosis of left femoral vein (principal); M79.605 Pain in left leg; E11.9 Type 2 diabetes mellitus without complications; I10 Essential (primary) hypertension; G89.29 Other chronic pain; F17.200 Nicotine dependence, unspecified, uncomplicated; F10.20 Alcohol dependence, uncomplicated; Z86.718 Personal history of other venous thrombosis and embolism; Z88.6 Allergy status to analgesic agent; Y90.9 Presence of alcohol in blood, level not specified
CPT/HCPCS: 93971; 99284

== ENCOUNTER 2021-01-10 21:13 | Emergency (ER) | payer BC, OTHER ==
[~2021-01-10 21:13] MED LIST changes: +NAPR-514 PO
== END 2021-01-10 22:20 | disposition left against medical advice (07) ==
LOC: ER 21:13
DX: T14.8XXA Other injury of unspecified body region, initial encounter (principal); Z53.21 Procedure and treatment not carried out due to patient leaving prior to being seen by health care provider; W50.3XXA Accidental bite by another person, initial encounter; Y93.89 Activity, other specified; Y92.89 Other specified places as the place of occurrence of the external cause; Y99.8 Other external cause status

== ENCOUNTER 2021-01-14 10:14 | Emergency (ER) | payer OTHER ==
[~2021-01-14] VITALS: Ht 182.9 cm; Wt 111.6 kg
[2021-01-14 11:17] VITALS: BP 150/69
[2021-01-14] MEDS ORDERED: HYDR-2769 PO (11:42)
[2021-01-14] MEDS ORDERED: AMOX1TAB61 PO (11:42)
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
[2021-01-14] MEDS ORDERED: AMOXICILLIN/K CLAV 875/125MG TABLET. PO ONE (11:45)
[2021-01-14] MEDS ORDERED: BACITRACIN TOPICAL OINT PACKET. TP ONE (11:45)
== END 2021-01-14 12:00 | disposition home or self-care (01) ==
LOC: ER 10:14
DX: S21.152A Open bite of left front wall of thorax without penetration into thoracic cavity, initial encounter (principal); E11.9 Type 2 diabetes mellitus without complications; I10 Essential (primary) hypertension; Z86.718 Personal history of other venous thrombosis and embolism; G89.29 Other chronic pain; F17.200 Nicotine dependence, unspecified, uncomplicated; Z88.6 Allergy status to analgesic agent; F10.20 Alcohol dependence, uncomplicated; Y90.9 Presence of alcohol in blood, level not specified; W50.3XXA Accidental bite by another person, initial encounter; Y93.89 Activity, other specified; Y99.8 Other external cause status; Y92.89 Other specified places as the place of occurrence of the external cause
CPT/HCPCS: 99283

== ENCOUNTER 2021-02-27 09:32 | Emergency (ER) | payer OTHER ==
[~2021-02-27] VITALS: Ht 177.8 cm; Wt 113.0 kg
[~2021-02-27 09:32] MED LIST changes: +AMOX1TAB61 PO; +CLIN-94 PO; -CLIN300C9 PO; +HYDR-2769 PO; +MAGN400T48 PO; -MAGN400T5 PO
[2021-02-27] MEDS ORDERED: ONDANSETRON PF 4 MG/2 ML VIAL. IVP ONE (10:00)
[2021-02-27] MEDS ORDERED: MORPHINE SULFATE 4 MG/ML INJ. IVP ONE (10:00)
[2021-02-27] MEDS ORDERED: VANCOMYCIN PER PHARMACY MC PRN (10:00)
[2021-02-27] MEDS ORDERED: VANCOMYCIN 2 GM in IV NORMAL SALINE 500ML BAG 500 ML IV ONE (10:15)
--- NOTE | 2021-02-27 10:36 | RAD ---
EXAM: Left lower extremity venous Doppler. HISTORY: Chronic left lower extremity deep venous thrombosis, on anticoagulation COMPARISON: 10/15/2020. FINDINGS: Grayscale and Doppler analysis of the left lower extremity deep venous system was performed with graded compression and augmentation. The common femoral, greater saphenous, superficial femoral , popliteal and calf veins were assessed. Chronic nonocclusive thrombus is again noted within the femoral, popliteal, posterior tibial and lyn[place] veins. There is no clear interval change. IMPRESSION: 1. Stable chronic nonocclusive thrombus within the left superficial femoral vein extending through th e calf veins. Electronically signed by: Bhavna Aj MD (02/27/2021 10:34 AM) [id number]
--- NOTE | 2021-02-27 10:44 | PHYS DOC ---
Past Medical History Past Medical History: Diabetes-Type II, DVT, Hypertension, Other Additional Past Medical Histor: CHRONIC BACK PAIN,UMBILICAL HERNIA, LLE Wound Past Surgical History: Other Additional Past Surgical Histo: L KNEE Smoking Status: Current Every Day Smoker Alcohol Use: Occasionally Drug Use: None General Adult EDM: Chief Complaint: WOUND CHECK HPI: HPI: Patient is a 51 year old male with a history of chronic wound on his left lower extremity and left ankle area presented to ER due to left lower extremity pain and swelling. The pain and swelling has become more severe since 4 days ago. Patient also noticed some drainage from the wound on the left ankle area. Patient has history of chronic DVT on his left lower extremity, patient is currently on Xarelto. Patient denies any chest pain or any trouble breathing. Patient denies any cough or fever. Review of Systems: Review of Systems: Constitutional: Denies fever or chills. [] Eyes: Denies change in visual acuity. [] HENT: Denies nasal congestion or sore throat. [] Respiratory: Denies cough or shortness of breath. [] Cardiovascular: Denies chest pain or edema. [] GI: Denies abdominal pain, nausea, vomiting, bloody stools or diarrhea. [] : Denies dysuria. [] Musculoskeletal: Denies back pain or joint pain. [] Integument: Denies rash. [] Neurologic: Denies headache, focal weakness or sensory changes. [] Endocrine: Denies polyuria or polydipsia. [] Lymphatic: Denies swollen glands. [] Psychiatric: Denies depression or anxiety. [] Heart Score: C/O Chest Pain: N/A Risk Factors: Risk Factors: DM, Current or recent (<one month) smoker, HTN, HLP, family history of CAD, obesity. Risk Scores: Score 0 - 3: 2.5% MACE over next 6 weeks - Discharge Home Score 4 - 6: 20.3% MACE over next 6 weeks - Admit for Clinical Observation Score 7 - 10: 72.7% MACE over next 6 weeks - Early Invasive Strategies Current Medications: Current Medications Medications (Trade) Dose Ordered Sig/Cameron Start Time Stop Time Status Last Admin Dose Admin Morphine Sulfate (Morphine Sulfate) 4 mg 1X ONCE 02/27/21 10:00 02/27/21 10:01 DC Ondansetron HCl (Zofran) 4 mg 1X ONCE 02/27/21 10:00 02/27/21 10:01 DC Vancomycin HCl (Vanco Per Pharmacy) 1 each PRN DAILY PRN 02/27/21 10:00 Vancomycin HCl 2 gm/Sodium Chloride 500 ml @ 250 mls/hr 1X ONCE 02/27/21 10:15 02/27/21 12:14 Allergies: Allergies: Allergies Coded Allergies Type Severity Reaction Last Updated Verified tramadol Allergy Intermediate Rash 10/25/18 Yes Physical Exam: PE: Constitutional: Well developed, well nourished, no acute distress, non-toxic appearance. [] HENT: Normocephalic, atraumatic, bilateral external ears normal, oropharynx moist, no oral exudates, nose normal. [] Eyes: PERRLA, EOMI, conjunctiva normal, no discharge. [] Neck: Normal range of motion, no tenderness, supple, no stridor. [] Cardiovascular:Heart rate regular rhythm, no murmur [] Lungs & Thorax: Bilateral breath sounds clear to auscultation [] Abdomen: Bowel sounds normal, soft, no tenderness, no masses, no pulsatile masses. [] Skin: Warm, dry, no erythema, no rash. [] Back: No tenderness, no CVA tenderness. [] Extremities: left lower extremity is swollen, two nonhealing wound on left distal leg and left medial malleous area with clear drainage. Neurologic: Alert and oriented X 3, normal motor function, normal sensory function, no focal deficits noted. [] Psychologic: Affect normal, judgement normal, mood normal. [] Current Patient Data: Vital Signs: Vital Signs Date Time Temp Pulse Resp B/P (MAP) Pulse Ox O2 Delivery O2 Flow Rate FiO2 02/27/21 09:45 98.1 79 18 146/72 (96) 99 Room Air 98.1 EKG: EKG: [] Radiology/Procedures: Radiology/Procedures: [facility] [address] [place] [address] IMAGING REPORT Signed PATIENT: KEYLA YEE ACCOUNT: [id number] : 1970 LOCATION: ER AGE: 51 SEX: M EXAM STATUS: REG ER ORD. PHYSICIAN: BRIAN MENDOZA DO REASON: left leg pain and swelling, hx of DVT PROCEDURE: VENOUS LOWER EXTREMITY LEFT EXAM: Left lower extremity venous Doppler. HISTORY: Chronic left lower extremity deep venous thrombosis, on anticoagulation COMPARISON: 10/15/2020. FINDINGS: Grayscale and Doppler analysis of the left lower extremity deep venous system was performed with graded compression and augmentation. The common femoral, greater saphenous, superficial femoral, popliteal and calf veins were assessed. Chronic nonocclusive thrombus is again noted within the femoral, popliteal, posterior tibial and peroneal veins. There is no clear interval change. IMPRESSION: 1. Stable chronic nonocclusive thrombus within the left superficial femoral vein extending through the calf veins. Electronically signed by: Bhavna Aj MD (02/27/2021 10:34 AM) [id number] DICTATED and SIGNED BY: ELEAZAR AJ MD DATE: 02/27/21 [id number] 0 Course & Med Decision Making: Course & Med Decision Making Pertinent Labs and Imaging studies reviewed. (See chart for details) Patient is a 51-year-old male who presented to ER due to left lower extremity pain, patient has history of chronic DVT, currently on Xarelto. Patient has nonhealing wounds on left leg and ankle area. He will need to follow-up with wound care for follow-up . Porsha Disclaimer: Porsha Disclaimer: This electronic medical record was generated, in whole or in part, using a voice recognition dictation system. Departure Departure Impression: Primary Impression: Chronic deep vein thrombosis (DVT) Additional Impression: Chronic ulcer of left leg Disposition: 01 HOME / SELF CARE / HOMELESS Condition: STABLE Referrals: Adithya MATTHEWS MD (PCP) Follow up with your doctor this week. ALAINA HAYWOOD MD Please follow up with this wound care physician at [facility] this week. Patient Instructions: Chronic Pain Scripts Hydrocodone/Acetaminophen (Hydrocodone-Acetamin 10-325 mg) 1 Each Tablet 1 EACH PO Q6HRS PRN for PAIN, #10 TAB Prov: BRIAN MENDOZA DO 02/27/21 BRIAN MENDOZA DO Feb 27, 2021 10:44
[2021-02-27 10:52] LABS: BASO % 1 % (0-3); EOS # 0.1 x10^3/uL (0.0-0.7); EOS % 2 % (0-3); HEMATOCRIT 40.9 % (39.0-53.0); HEMOGLOBIN 13.8 g/dL (13.0-17.5); LYMPH # 1.6 x10^3/uL (1.0-4.8); LYMPH % 34 % (24-48); MEAN CORPUSCULAR HEMOGLOBIN 29 pg (25-35); MEAN CORPUSCULAR HGB CONC 34 g/dL (31-37); MEAN CORPUSCULAR VOLUME 85 fL (79-100); MONO # 0.4 x10^3/uL (0.0-1.1); MONO % 8 % (0-9); NEUT # 2.6 x10^3/uL (1.8-7.7); NEUT % 56 % (31-73); PLATELET COUNT 155 x10^3/uL (140-400); RED CELL DISTRIBUTION WIDTH 13.8 % (11.5-14.5); WHITE BLOOD COUNT 4.7 x10^3/uL (4.0-11.0)
[2021-02-27 10:57] LABS: CALCIUM 8.2 mg/dL (8.5-10.1); CREATININE 0.9 mg/dL (0.7-1.3); GFR 107.6; POTASSIUM 4.1 mmol/L (3.5-5.1)
[2021-02-27 11:03] LABS: ALBUMIN 3.2 g/dL (3.4-5.0); ALBUMIN/GLOBULIN RATIO 0.9 (1.0-1.7); C-REACTIVE PROTEIN 0.8 mg/L (0-3.3); TOTAL BILIRUBIN 0.3 mg/dL (0.2-1.0); TOTAL PROTEIN 6.9 g/dL (6.4-8.2); URIC ACID 5.4 mg/dL (3.5-7.2)
[2021-02-27] MEDS ORDERED: HYDR-2767 PO (11:53)
[2021-02-27 12:43] VITALS: BP 122/68
== END 2021-02-27 13:05 | disposition home or self-care (01) ==
LOC: ER 09:39
DX: I82.502 Chronic embolism and thrombosis of unspecified deep veins of left lower extremity (principal); E11.622 Type 2 diabetes mellitus with other skin ulcer; L97.929 Non-pressure chronic ulcer of unspecified part of left lower leg with unspecified severity; I10 Essential (primary) hypertension; G89.29 Other chronic pain; F17.200 Nicotine dependence, unspecified, uncomplicated; Z88.6 Allergy status to analgesic agent
CPT/HCPCS: 36415; 80053; 84550; 85025; 85651; 86140; 93971; 96365; 96375; 99285; J2270; J2405; J3370; J7040

== ENCOUNTER 2021-05-13 11:14 | Emergency (ER) | payer OTHER ==
[~2021-05-13] VITALS: Ht 182.9 cm; Wt 114.1 kg
[~2021-05-13 11:14] MED LIST changes: +HYDR-2767 PO
--- NOTE | 2021-05-13 12:23 | PHYS DOC ---
Past Medical History Past Medical History: Diabetes-Type II, DVT, Hypertension, Other Additional Past Medical Histor: CHRONIC BACK PAIN,UMBILICAL HERNIA, LLE Wound Past Surgical History: Other Additional Past Surgical Histo: L KNEE Smoking Status: Current Every Day Smoker Alcohol Use: None Drug Use: None General Adult EDM: Chief Complaint: LOWER EXT PAIN HPI: HPI: Patient is a 51 year old male with history of DVT on Xarelto, LLE varicose veins s/p procedure for removal with [facility] vascular surgery on 05/02 who presents with swelling and discomfort in his left leg. States that the swelling has not gone down since the operation. He has not called his surgeon regarding these findings. He has a left medial ankle ulcer, that he states has actually been improving. Denies any drainage from operative sites. Denies fever/chills. He is unsure of the name of the surgeon or type of surgery. States that it was done under local anesthesia. He had held Xarelto prior to his procedure, but has not missed any doses since. Review of Systems: Review of Systems: Constitutional: Denies fever or chills. [] Eyes: Denies change in visual acuity. [] HENT: Denies nasal congestion or sore throat. [] Respiratory: Denies cough or shortness of breath. [] Cardiovascular: Denies chest pain GI: Denies abdominal pain, nausea, vomiting, bloody stools or diarrhea. [] : Denies dysuria. [] Musculoskeletal: Reports left lower extremity swelling. Denies back pain or joint pain. [] Integument: Denies rash. Chronic left lower extremity ulcer. [] Psychiatric: Denies depression or anxiety. [] Heart Score: C/O Chest Pain: No Allergies: Allergies: Allergies Coded Allergies Type Severity Reaction Last Updated Verified tramadol Allergy Intermediate Rash 10/25/18 Yes Physical Exam: PE: Constitutional: Well developed, well nourished, no acute distress, non-toxic appearance. [] HENT: Normocephalic, atraumatic Neck: Normal range of motion, no tenderness, supple, no stridor. [] Cardiovascular:Heart rate regular rhythm, no murmur [] Lungs & Thorax: Normal work of Abdomen: Bowel sounds normal, soft, no tenderness, no masses, no pulsatile masses. [] Skin: Warm, dry, no erythema, no rash. [] Extremities: Edematous left lower extremity to the level of the mid calf, small scab tissue approximately 1 cm piece present going up the left inner leg from the mid calf to the mid thigh. Ulcer to the medial left lower ankle with some scab tissue, and yellow crust, no active drainage. good DP pulse. Neurologic: Alert and oriented X 3, normal motor function, normal sensory function, no focal deficits noted. [] Psychologic: Affect normal, judgement normal, mood normal. [] Current Patient Data: Vital Signs: Vital Signs Date Time Temp Pulse Resp B/P (MAP) Pulse Ox O2 Delivery O2 Flow Rate FiO2 05/13/21 11:59 78 18 133/71 (91) 99 Room Air 05/13/21 11:15 97.9 97.9 EKG: EKG: [] Radiology/Procedures: Radiology/Procedures: [] Impression: [facility] [address] [place] [address] IMAGING REPORT Signed PATIENT: KEYLA YEE ACCOUNT: [id number] : 1970 LOCATION: ER AGE: 51 SEX: M EXAM STATUS: REG ER ORD. PHYSICIAN: ELEAZAR CARY MD REASON: LLE swelling, recent varicose vein surgery, hx dvt PROCEDURE: VENOUS LOWER EXTREMITY LEFT INDICATION: Reason: LLE swelling, recent varicose vein surgery, hx dvt / Spl. Instructions: / History: COMPARISON: February 27, 2021 TECHNIQUE: Grayscale, color and doppler ultrasound images were obtained of the left lower extremity venous vasculature. LEFT: Partial thrombus is seen within the left superficial femoral vein as well as the popliteal vein and extending into the peroneal vein which is comparable in severity compared to prior. IMPRESSION: * Repeat demonstration of left leg deep vein thrombosis with the overall severity comparable to prior. Electronically signed by: Michela Hanna MD (05/13/2021 1:11 PM) [id number] DICTATED and SIGNED BY: MICHELA HANNA MD DATE: 05/13/21 [id number] 0 Course & Med Decision Making: Course & Med Decision Making Pertinent Labs and Imaging studies reviewed. (See chart for details) Patient 51-year-old male with history of DVT on Xarelto, and varicose veins s/p outpatient procedure on 05/02 with vascular surgery presents with persistent left lower extremity swelling and discomfort. On arrival is afebrile, hemodynamically stable. No chest pain, shortness of breath, or vital sign abnormalities to suggest PE. We will check a DVT ultras ound to exclude left lower extremity DVT. No evidence of surgical site infection or hematoma, do not feel he would benefit from labs, or antibiotics. 1223 DVT ultrasound does show a DVT, that is stable in appearance since February 2021. Patient states he had had previous scan in March, that he thinks showed "no new clot." He is unsure if his old clot has never fully resolved. I advised him that I hope to talk with his primary care doctor to discuss his anticoagulation medications, and determine whether we would change the meds. He states that he was not willing to wait for me to have this conversation, and would rather call his PCPs office to have this conversation himself. [id number] Porsha Disclaimer: Porsha Disclaimer: This electronic medical record was generated, in whole or in part, using a voice recognition dictation system. Departure Departure Impression: Primary Impression: Chronic deep vein thrombosis (DVT) Disposition: LEFT AGAINST MEDICAL ADVICE Condition: STABLE Referrals: Adithya ANSARI MD (PCP) Additional Instructions: You have a DVT in your left leg that is similar in appearance to the ultrasound from February 2021. Please continue to take your Xarelto as prescribed for now. Please call Dr. Ansari's office to determine whether they want to try a different blood thinning medication. ELEAZAR CARY MD May 13, 2021 12:23
--- NOTE | 2021-05-13 13:13 | RAD ---
INDICATION: Reason: LLE swelling, recent varicose vein surgery, hx dvt / Spl. Instructions: / Histor y: COMPARISON: February 27, 2021 TECHNIQUE: Grayscale, color and doppler ultrasound images were obtained of the left lower extremity v enous vasculature. LEFT: Partial thrombus is seen within the left superficial femoral vein as well as the popliteal vein and e xtending into the peroneal vein which is comparable in severity compared to prior. IMPRESSION: * Repeat demonstration of left leg deep vein thrombosis with the overall severity comparable to sonia or. Electronically signed by: Saman Cameron MD (05/13/2021 1:11 PM) [id number]
[2021-05-13 14:11] VITALS: BP 131/84
== END 2021-05-13 14:11 | disposition left against medical advice (07) ==
LOC: ER 11:14
DX: I82.5Y2 Chronic embolism and thrombosis of unspecified deep veins of left proximal lower extremity (principal); E11.9 Type 2 diabetes mellitus without complications; I10 Essential (primary) hypertension; G89.29 Other chronic pain; F17.200 Nicotine dependence, unspecified, uncomplicated; Z88.6 Allergy status to analgesic agent
CPT/HCPCS: 93971; 99284-25

== ENCOUNTER → 2021-05-29 | Outpatient (CLI) | payer OTHER ==
[2021-05-13 14:11] VITALS: BP 131/84
--- NOTE | 2021-05-29 10:05 | RAD ---
EXAM: Lumbar spine, 5 views. HISTORY: Pain. COMPARISON: None. FINDINGS: 5 views of the lumbar spine are obtained. There is degenerative endplate remodeling with di sc space narrowing and osteophytosis primarily at L1-L2. There is multilevel facet arthropathy, prima rily at L5-S1. There is an IVC filter and left iliac stent. IMPRESSION: 1. Multilevel degenerative change, primarily at L1-L2. 2. No acute osseous finding. Electronically signed by: Francisca Sheth MD (05/29/2021 10:03 AM) [id number]
== END ==
LOC: RAD 08:59
PROVIDERS: ATTEND Family Medicine
DX: M47.816 Spondylosis without myelopathy or radiculopathy, lumbar region (principal); M48.061 Spinal stenosis, lumbar region without neurogenic claudication; M25.78 Osteophyte, vertebrae; M12.88 Other specific arthropathies, not elsewhere classified, other specified site
CPT/HCPCS: 72100